=== PATIENT | female | born 1965 | race Caucasian/White ===

== ENCOUNTER 2023-10-10 19:57 | Emergency (ER) | payer OTHER, SELFPAY ==
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
[2023-10-10 20:05] VITALS: BP 142/93; PULSE 86; RESP 16; TEMP 36.1; O2SAT 100
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
== END 2023-10-10 23:15 | disposition home or self-care (01) ==
PROVIDERS: Emergency Provider Physician Assistant
DX: S60.221A Contusion of right hand, initial encounter (principal); Z79.899 Other long term (current) drug therapy; Z79.1 Long term (current) use of non-steroidal anti-inflammatories (NSAID); W22.09XA Striking against other stationary object, initial encounter
CPT/HCPCS: 73110; 73130; 99283

== ENCOUNTER 2024-04-13 18:51 | Emergency (ER) | payer OTHER, SELFPAY ==
--- NOTE | ~2024-04-13 | XR_ITS ---
CHEST RADIOGRAPH CLINICAL HISTORY: pneumonia . COMPARISON: None available TECHNIQUE: Single portable view of the chest. FINDINGS The cardiomediastinal silhouette is unremarkable. The lungs are clear. Visualized osseous structures and soft tissues are unremarkable. IMPRESSION: No focal infiltrate or effusion. Reviewed, dictated and finalized at location A. CTOR OF INSTITUTIONAL GIVING
[2024-04-13 19:02] VITALS: BP 151/82; PULSE 123; RESP 23; TEMP 36.3; O2SAT 97
[2024-04-13 23:08] VITALS: BP 151/102; PULSE 105; RESP 22; O2SAT 99
[2024-04-13 23:19] VITALS: PULSE 104
[2024-04-14] VITALS (10 sets, daily range): BP systolic 108–139; BP diastolic 72–98; PULSE 97–108; RESP 15–21; TEMP 37.2; O2SAT 95–100
[2024-04-14 00:03] LABS: Influenza A QL RT-PCR Positive (Negative); Influenza B QL RT-PCR Negative (Negative); RSV RNA, RT-PCR Negative (Negative); SARS-CoV-2 RNA PCR Negative (Negative)
--- NOTE | 2024-04-14 00:22 | PC.NURSE ---
1st set of blood cultures drawn left ac with kurin device, label in bio bag with cultures to lab. 2nd set of blood cultures drawn left wrist with kurin device, label in bio bag with cultures to lab.
[2024-04-14 00:30] LABS: Basophils Percent Auto 0.7 % (0.2-1.2); Eosinophils Absolute Auto 0.2 K/mm3 (0-0.3); Eosinophils Percent Auto 2.8 % (0-4.4); Hematocrit 42.6 % (37.0-47.0); Hemoglobin 13.7 g/dL (12.0-15.0); Immature Granulocyte Absolute 0.01 K/mm3 (0.00-0.031); Immature Granulocyte Percent A 0.2 % (0-0.5); Lymphocytes Absolute Auto 2.86 K/mm3 (0.9-3.2); Lymphocytes Percent Auto 49.9 % (18.3-44.2); Mean Corpuscular HGB Conc 32.2 g/dl (32-36); Mean Corpuscular Hemoglobin 30.4 pg (26-34); Mean Corpuscular Volume 94.7 fl (80-100); Mean Platelet Volume 9.9 fl (7.4-10.4); Monocytes Absolute Auto 0.4 K/mm3 (0.1-0.6); Monocytes Percent Auto 6.3 % (2.6-8.5); Neutrophils Absolute Auto 2.3 K/mm3 (1.3-6.7); Neutrophils Percent Auto 40.1 % (45.5-73.1); Platelet Count Result 251 k/mm3 (150-375); Red Cell Distribution Width 12.4 % (11.5-14.5); White Blood Count 5.7 K/mm3 (4.5-10.0)
[2024-04-14 00:40] LABS: Alanine Aminotransferase 40 U/L (6-35); Albumin Level 4.2 g/dL (3.5-5.1); Alkaline Phosphatase 89 U/L (38-126); Anion Gap 10 mmol/L (4-12); Aspartate Amino Transferase 56 U/L (14-36); Bilirubin,Total 0.5 mg/dL (0.2-1.3); Blood Urea Nitrogen 18 mg/dL (7-17); Calcium 8.8 mg/dL (8.4-10.2); Carbon Dioxide 28 mmol/L (22-30); Chloride 102 mmol/L (98-107); Estimated CRCL calculation 72 ml/min; Estimated Glomerular Filt Rate > 60; Glucose 88 mg/dL (65-110); Lactic Acid Reflex 0.9 mmol/L (0.7-2.0); Magnesium 2.2 mg/dL (1.6-2.3); Potassium 3.6 mmol/L (3.4-5.0); Sodium 140 mmol/L (137-145)
[2024-04-14] MEDS: SODIUM CHLORIDE 0.9% IV 1,000 ML 999 ML IV CONT (00:58)
--- NOTE | 2024-04-14 01:15 | ED_ITS ---
HPI - General Adult General Chief complaint: Shortness of Breath/Dyspnea Stated complaint: I think I have RSV Time Seen by Provider: 04/13/24 23:24 History of Present Illness HPI narrative: Patient is a 58-year-old female who presents to the emergency department this evening complaining of a cough productive of yellow sputum, shortness of breath. Patient states that symptoms started last week on Wednesday approximately 1 week ago. She admits that she has been having on and off fevers and chills and was concerned for RSV. Denies any chest pain. Patient took Tylenol at 5:30 p.m.. No additional symptoms or concerns at this time. Related Data Home Medications ?Medication ?Instructions ?Recorded ?Confirmed ?Last Taken ?Type B Complex-Vitamin B12 10/10/23 Unknown History Boniva 10/10/23 Unknown History Calcium 600 10/10/23 Unknown History Claritin 10/10/23 Unknown History Flonase 10/10/23 Unknown History Frsf-Ubuu-Sezfh (PABA) 10/10/23 Unknown History One A Day 10/10/23 Unknown History Trelegy Ellipta 10/10/23 Unknown History albuterol 10/10/23 Unknown History amlodipine 10 mg tablet mg 10/10/23 Unknown History bisoprolol fumarate 5 mg tablet mg 10/10/23 Unknown History bupropion HCl 150 mg 24 hr tablet, mg PO 10/10/23 Unknown History extended release duloxetine 60 mg capsule,delayed mg 10/10/23 Unknown History release sprinkle ibuprofen 800 mg tablet mg 10/10/23 Unknown History levothyroxine 50 mcg tablet 50 mcg PO DAILY 10/10/23 10/10/23 Unknown History (Synthroid) linaclotide 145 mcg capsule mcg 10/10/23 Unknown History (Linzess) montelukast 10 mg tablet mg 10/10/23 Unknown History (Singulair) multivit with tablet PO 10/10/23 Unknown History aoa-dlof-OB-#190herbal 18 mg iron-800 mcg-150 mg tablet (Vitamin D3 Complete) potassium chloride 20 mEq meq PO 10/10/23 Unknown History tablet,extended release theophylline 400 mg mg PO 10/10/23 Unknown History tablet,extended release Allergies Allergy/AdvReac Type Severity Reaction Status Date / Time iodine AdvReac Hives Verified 10/10/23 20:08 latex AdvReac Hives Verified 10/10/23 20:08 Review of Systems 2 Review of Systems: All systems are reviewed and are negative unless stated otherwise in the HPI. [facility] Past Medical History Medical History History of osteoporosis Social History Social History Substance use: never Exam 2 Narrative: General: Alert, awake, afebrile, dry cough. HEENT: PERRL, no rhinorrhea, no post nasal drip, oropharynx clear. Neck: Trachea midline, no JVD, no lymphadenopathy. Cardiovascular: Tachycardic with regular rhythm, no murmurs, rubs or gallops, no peripheral edema. Respiratory: Clear to auscultation bilaterally, tachypnea, no wheezing, no rhonchi, no rubs, no respiratory distress. Abdomen: Soft, nontender, nondistended, no rebound, no guarding, no peritoneal signs. Musculoskeletal: No joint swelling or deformity, normal muscle tone. Skin: No rashes or petechia, no signs of infection. Psychiatric: Alert and oriented, normal behavior and judgment for situation. Neurological: Alert and oriented to person, place, and time. Follows all commands. No focal deficits, speech is clear and fluent. Course Vital Signs Vital signs: Vital Signs Temperature 97.4 F L 04/13/24 19:02 Pulse Rate 123 H 04/13/24 19:02 Respiratory Rate 23 H 04/13/24 19:02 Blood Pressure 151/82 H 04/13/24 19:02 Pulse Oximetry 97 04/13/24 19:02 Oxygen Delivery Room Air 04/13/24 19:02 Temperature 97.4 F L 04/13/24 19:02 Pulse Rate 104 H 04/13/24 23:19 Respiratory Rate 22 H 04/13/24 23:08 Blood Pressure 151/102 H 04/13/24 23:08 Pulse Oximetry 99 04/13/24 23:08 Oxygen Delivery Room Air 04/13/24 19:02 Medical Decision Making MDM Narrative Medical decision making narrative: The patient was evaluated by myself in the emergency department. History is obtained from patient who is an independent historian and physical exam was performed. External medical records were reviewed at this time. IV was established and pertinent tests were ordered. Patient was administered 1 L IV fluid bolus with normal saline. Laboratory results obtained revealing mild elevation of the liver enzymes with an AST of 58 and ALT of 40, otherwise no acute process. Viral swabs positive for influenza A. Imaging studies obtained included CXR which was independently interpreted by me revealing no acute cardiopulmonary process, which is pending final radiology interpretation. Differential diagnosis considerations include acute viral syndrome, infectious process such as pneumonia, dehydration, electrolyte derangements. Comorbidities impacting this visit include none. I have evaluated and discussed social determinants of health with the patient that could potentially impact subsequent diagnosis and treatment plans. On repeat assessment of the patient, reevaluation revealed that the patient is doing well and is in no acute distress. Patient symptoms have improved since she arrived to our emergency department. Repeat vital signs were all reviewed and noted to be stable with a repeat heart rate of 100 and respiratory rate of 18. Differential diagnosis and treatment plan were discussed with the patient at bedside. Patient agrees with discussion and after shared medical decision making agrees with discharge. All questions were answered to the patient's satisfaction. Patient will follow up with her PCP in 3-5 days. Script for Tessalon Perles was sent to patient's pharmacy to use as needed for cough. Patient was provided with strict return precautions and instructed to return to the emergency department if any new or worsening symptoms develop. The patient was discharged in stable condition. Vital Signs Vital Signs: Vital Signs Temperature 97.4 F L 04/13/24 19:02 Pulse Rate 123 H 04/13/24 19:02 Respiratory Rate 23 H 04/13/24 19:02 Blood Pressure 151/82 H 04/13/24 19:02 Pulse Oximetry 97 04/13/24 19:02 Oxygen Delivery Room Air 04/13/24 19:02 Temperature 97.4 F L 04/13/24 19:02 Pulse Rate 104 H 04/13/24 23:19 Respiratory Rate 22 H 04/13/24 23:08 Blood Pressure 151/102 H 04/13/24 23:08 Pulse Oximetry 99 04/13/24 23:08 Oxygen Delivery Room Air 04/13/24 19:02 Lab Data 04/14/24 00:22 04/14/24 00:22 Labs: Lab Results 04/13/24 04/14/24 Range/Units 23:20 00:22 WBC 5.7 (4.5-10.0) K/mm3 RBC 4.50 (4.2-5.4) M/mm3 Hgb 13.7 (12.0-15.0) g/dL Hct 42.6 (37.0-47.0) % MCV 94.7 (80-100) fl MCH 30.4 (26-34) pg MCHC 32.2 (32-36) g/dl RDW 12.4 (11.5-14.5) % Plt Count 251 (150-375) k/mm3 MPV 9.9 (7.4-10.4) fl Immature Gran % (Auto) 0.2 (0-0.5) % Neut % (Auto) 40.1 L (45.5-73.1) % Lymph % (Auto) 49.9 H (18.3-44.2) % [place] % (Auto) 6.3 (2.6-8.5) % Eos % (Auto) 2.8 (0-4.4) % Baso % (Auto) 0.7 (0.2-1.2) % Lymph # (Auto) 2.86 (0.9-3.2) K/mm3 [place] # (Auto) 0.4 (0.1-0.6) K/mm3 Eos # (Auto) 0.2 (0-0.3) K/mm3 Baso # (Auto) 0.0 (0.0-0.1) K/mm3 Abs Immat Gran (auto) 0.01 (0.00-0.031) K/mm3 Absolute Neuts (auto) 2.3 (1.3-6.7) K/mm3 Absolute Nucleated RBC 0.000 (0.0-0.012) K/mm3 Nucleated RBC % 0.0 (0.0-0.2) % Sodium 140 (137-145) mmol/L Potassium 3.6 (3.4-5.0) mmol/L Chloride 102 (98-107) mmol/L Carbon Dioxide 28 (22-30) mmol/L Anion Gap 10 (4-12) mmol/L BUN 18 H (7-17) mg/dL Creatinine 0.72 (0.7-1.0) mg/dL Estim Creat Clear Calc 72 ml/min Estimated GFR > 60 (59 - ) Glucose 88 (65-110) mg/dL Lactic Acid 0.9 (0.7-2.0) mmol/L Calcium 8.8 (8.4-10.2) mg/dL Magnesium 2.2 (1.6-2.3) mg/dL Total Bilirubin 0.5 (0.2-1.3) mg/dL AST 56 H (14-36) U/L ALT 40 H (6-35) U/L Alkaline Phosphatase 89 (38-126) U/L Total Protein 8.0 (6.3-8.2) g/dL Albumin 4.2 (3.5-5.1) g/dL Influenza A (RT-PCR) Positive A (Negative) Influenza B (RT-PCR) Negative (Negative) RSV (RT-PCR) Negative (Negative) SARS-CoV-2 RNA (RT-PCR) Negative (Negative) Discharge Plan Discharge Clinical Impression: Influenza A Patient Disposition: Home, Self-Care Condition: Stable Instructions: Antibiotic Form, Influenza (ED) Additional Instructions: Please follow-up with your family doctor within the next 3-5 days. Return to the emergency department if any new or worsening symptoms develop. Maintain your oral hydration by drinking lots of fluids. Patient Language: Mohawk Prescriptions: New benzonatate 200 mg capsule 200 mg PO TID PRN (Reason: cough) Qty: 15 0RF No Action B Complex-Vitamin B12 theophylline 400 mg Tablet Extended Release PO ibuprofen [Motrin] 800 mg Tablet bisoprolol fumarate 5 mg Tablet amlodipine 10 mg Tablet levothyroxine [Synthroid] 50 mcg Tablet 50 mcg PO DAILY montelukast [Singulair] 10 mg Tablet bupropion HCl 150 mg Tablet Extended Release 24 Hr PO Vitamin D3 Complete 18 mg iron-800 mcg-150 mg Tablet PO Linzess 145 mcg Capsule potassium chloride 20 mEq Tablet Extended Release PO duloxetine 60 mg Capsule, Delayed Rel Sprinkle Boniva Calcium 600 Claritin Flonase Frrw-Qwpj-Kzalp (PABA) One A Day Trelegy Ellipta albuterol Follow-up/Referrals: Vikas Davies MD [Physician] - 3 Days UNKNOWN,DOCTOR [Primary Care Provider] - 3 Days Time of Disposition: 01:17
--- OUTSIDE RECORDS SUMMARY | 2024-04-14 06:15 | XMS_ITS | Continuity of Care Document ---
Author Name [facility] Organization [facility] Care Team Providers Care Alternative Energy Engineer Name Role Phone [facility] Unavailable Unavailable Problems Combined list of problems from Department of Defense and Veterans Affairs facilities. It does not include entries that were removed or entered in error. Problem Status Onset Date Problem Type Date of Resolution Comments Source Allergic rhinitis due to pollen Active 9 Condition DoD Displaced fracture of navicular [scaphoid] of right foot Active 9 Condition DoD Essential (primary) hypertension Active 8 Condition DoD Scoliosis, unspecified Active 8 Condition DoD Mild persistent asthma, uncomplicated Active Condition DoD Adjustment disorder, unspecified Active Condition DoD rhinitis vasomotor Active Condition DoD nephrolithiasis right Active Condition DoD restrictive lung disease Active Condition DoD procedure not carried out Active Condition DoD Vaccination Not Carried Out Due To Acute Illness Inactive Condition DoD visit for: issue repeat prescription Inactive Condition DoD Need For Vaccination Against Influenza Inactive Condition DoD Need For Vaccination Pneumococcal Inactive Condition DoD conjunctivitis Inactive Condition DoD allergic arthritis Active Condition DoD ovarian cyst Active Condition DoD asthma extrinsic with acute exacerbation Active Condition DoD perimenopause Active Condition DoD Cervix Sample Taken For Pap Smear Inactive Condition DoD Cervical Pap Smear Inactive Condition Do D visit for: screening exam Inactive Condition DoD psoriasis Active Condition DoD reaction to chronic stress Active Condition DoD menorrhagia Active Condition DoD insomnia Active Condition DoD asthma extrinsic Active Condition DoD costochondritis (Tietze's syndrome) Inactive Condition DoD acute chest wall trauma Inactive Condition DoD joint pain, localized in the knee Active Condition DoD neck strain right side Inactive Condition DoD shoulder strain right Inactive Condition DoD wrist sprain right Inactive Condition Do D asthmatic bronchitis Active Condition DoD breast fibrocystic disease Active Condition DoD Allergen Desensitization Inactive Condition DoD Occupational Therapy Inactive Condition DoD visit for: administrative purpose Inactive Condition DoD joint pain, localized in the elbow Inactive Condition DoD joint pain, localized in the wrist Inactive Condition DoD rhinitis Inactive Condition DoD sinusitis acute Inactive Condition DoD contusion with intact skin surface Active Condition DoD sinusitis Active Condition DoD chronic sinusitis Active Condition re view of today's sinus CT scan images show right maxalliary and ethoid sicaes, to a lesser extent left ethmoid and maxillary disease DoD allergic rhinitis Active Condition DoD bronchitis Inactive Condition DoD asthma with acute exacerbation Inactive Condition with resolving bronchitis DoD visit for: issue repeat prescription for medication Inactive Condition DoD asthma Active Condition DoD internal derangement of knee Inactive Condition DoD acute bronchitis Inactive Condition DoD asthma mild persistent Inactive Condition DoD Patient Education - Self-Examination Of Breasts Inactive Condition DoD visit for: screening exam malignant neoplasm breast Inactive Condition DoD visit for: screening exam for malignant neoplasm cervix Inactive Condition DoD routine gynecological exam with cervical pap smear Inactive Condition DoD other specified viral disease Inactive Condition DoD Outpatient Physician Consultation Inactive Condition DoD pneumonia Inactive Condition meds order ed in [facility] 1 DoD upper respiratory infection Inactive Condition DoD asthma moderate persistent Active Condition Patient is having adverse affects to the increase in advair and will switch her from advair to symbicort. Will continue the singulair and nasonex regularly and albuterol as needed. With aeroallergen skin test results conducted today we will order allergens for allergy testing today from [facility]. Will conduct lab work up for IG levels, pneumococcal levels and tetanus levels. Will follow up in 3-4 weeks for assessment of treatment efficacy, blood workup review and allergy shots. DoD Medications Combined list of outpatient medications from Department of Defense and Veterans Affairs facilities.Medications provided include 1) outpatient medications from the last 15 months, and 2) patient-reported medications. Medication Details Route Status Patient Instructions Prescription Expires Prescription Number Last Dispense Date Ordering Provider Order Date Order Qty Source albuterol 2.5mg/3mL (0.083%) inhalation soln (3mL) See Instruct ions, # 360 mL, 0 total refill(s ), Hard Stop Complet ed 03/10/2024 360.0 Ambul[facility] ory Pharmac y albuterol 90 mcg inhaler [8.5g] = 1 puff(s), Inhale, every 4 hr, # 8.5 g, 5 total refill(s ), Hard Stop Inhala tion (breat he in) Complet ed 12/23/2023 8.5 Ambulat ory Pharmac y albuterol 90 mcg/inh inhalation aerosol INHALE 2 PUFFS EVERY FOUR HOURS NEEDED FOR COUGH OR WHEEZING , # 25.5 g, 0 total refill(s ), Acute Complet ed 07/16/2023 25.5 Ambulat ory Pharmac y Albuterol Sulfate (PROVENTIL Eq.) Solution 2.5MG/3ML Inhalation Take or use exactly as directed .Obtain advice for OTCs.For inhalati on. 03/10/2024 [id number] 3 2022 360 [facility] [place] amLODIPine (U/D) 10 MG ORAL TAB Be careful if taking OTCs.Omid e or use exactly as directed . Active 04/21/2024 [id number] 4 2023 90 [facility] [place] amLODIPine (U/D) 10 MG ORAL TAB Be careful if taking OTCs.Omid e or use exactly as directed . 01/09/2024 [id number] 3 2022 90 [facility] [place] amLODIPine 10 mg tablet 10 mg, Oral, Daily, # 90 EA, 0 total refill(s ), Hard Stop Oral (given by mouth) Complet ed 08/31/2023 90.0 Ambulat ory Pharmac y amLODIPine 10 mg tablet 10 mg, Oral, Daily, # 90 EA, 0 total refill(s ), Hard Stop Oral (given by mouth) Ordered 04/21/2024 90.0 Ambul at ory Pharmac y azithromyci n 250 mg tablet (6EA) See Instruct ions, # 6 EA, 0 total refill(s ), Hard Stop Ordered 01/04/2025 6.0 Ambul at ory Pharmac y azithromyci n 250 mg tablet (6EA) See Instruct ions, 0, # 6 EA, 0 total refill(s ), Hard Stop Discont inued 01/06/2024 6.0 Ambulat ory Pharmac y azithromyci n 250 mg tablet (6EA) See Instruct ions, 0, 0, # 6 EA, 0 total refill(s ), Hard Stop Complet ed 09/02/2023 6.0 Ambulat ory Pharmac y Benzonatate (Tessalon Perle) Capsule Conventiona l 100 mg Oral May cause drowsine ss.Swall ow whole. 02/08/2024 [id number] 3 2022 60 [facility] [place] benzonatate 100 mg capsule 200 mg, Oral, TID, # 60 EA, 0 total refill(s ), Hard Stop Oral (given by mouth) Complet ed 02/08/2024 60.0 Ambulat ory Pharmac y bisoprolol 5 mg tablet 2.5 mg, Oral, Daily, # 45 EA, 3 total refill(s ), Hard Stop Oral (given by mouth) Ordered 01/04/2025 45.0 Ambul at ory Pharmac y bisoprolol 5 mg tablet 5 mg, Oral, Daily, # 90 EA, 0 total refill(s ), Hard Stop Oral (given by mouth) Discont inued 01/06/2024 90.0 Ambulat ory Pharmac y Bisoprolol Fumarate (Zebeta Eq.) Tablet 5mg Oral May cause drowsine ss.Be careful if taking OTCs.Omid e or use exactly as directed . Active 04/21/2024 [id number] 4 2023 90 [facility] [place] Bisoprolol Fumarate (Zebeta Eq.) Tablet 5mg Oral May cause drowsine ss.Be careful if taking OTCs.Omid e or use exactly as directed . 01/21/2024 [id number] 3 2022 90 [facility] [place] BONIVA (BRAND) 150 MG ORAL TAB Take on empty stomach. Do not take with milk, antacids , or iron.Obt ain advice for OTCs.Luis guo whole.Ch zaida with your doctor before becoming . 03/10/2024 [id number] 3 2022 3 [facility] [place] bromphenira mine/DM/PSE 2-10-30 mg/5 mL syrup [118mL] See Instruct ions, Oral, every 6 hr, # 400 mL, 3 total refill(s ), Hard Stop Oral (given by mouth) Discont inued 01/14/2023 400.0 Ambulat ory Pharmac y budesonide 0.5 mg/2 mL inhlation susp (2mL) See Instruct ions, # 120 mL, 0 total refill(s ), Hard Stop Complet ed 03/10/2024 120.0 Ambulat ory Pharmac y Budesonide, 0.25mg/ml, Ampul-neb., Inhalation Shake well.For inhalati on.Rinse mouth after use. 03/10/2024 [id number] 3 2022 120 [facility] [place] budesonide- formoterol 160-4.5 mcg inhaler (10.2g) See Instruct ions, # 10.2 g, 2 total refill(s ), Hard Stop Ordered 01/30/2025 10.2 Ambul at ory Pharmac y buPROPion XL 150 mg/24 hour tablet See Instruct ions, # 90 EA, 1 total refill(s ), Hard Stop Ordered 12/30/2024 90.0 Ambul at ory Pharmac y buPROPion XL 150 mg/24 hour tablet See Instruct ions, Oral, # 90 EA, 0 total refill(s ), Hard Stop Oral (given by mouth) Complet ed 08/24/2023 90.0 Ambulat ory Pharmac y cefuroxime 250 mg tablet See Instruct ions, Oral, # 20 EA, 0 total refill(s ), Hard Stop Oral (given by mouth) Complet ed 09/02/2023 20.0 Ambulat ory Pharmac y chlorphenir amine 4 mg tablet See Instruct ions, # 15 EA, 5 total refill(s ), Acute Complet ed 07/30/2023 15.0 Ambulat ory Pharmac y clobetasol 0.05% ointment [60g] See Instruct ions, # 60 g, 2 total refill(s ), Hard Stop Ordered 01/30/2025 60.0 Ambul at ory Pharmac y DULoxetine 60 MG ORAL CPDR Obtain advice for OTCs.May impair driving. Swallow whole.Ch zaida with your doctor before becoming . Active 04/26/2024 [id number] 4 2023 180 [facility] [place] DULoxetine 60 MG ORAL CPDR Obtain advice for OTCs.May impair driving. Swallow whole.Ch zaida with your doctor before becoming . 01/09/2024 [id number] 3 2022 180 [facility] [place] DULoxetine [place] 60 mg capsule See Instruct ions, # 90 EA, 1 total refill(s ), Hard Stop Ordered 12/30/2024 90.0 Ambul at ory Pharmac y DULoxetine DR 60 mg capsule 60 mg, Oral, BID, # 180 EA, 0 total refill(s ), Hard Stop Oral (given by mouth) Complet ed 09/29/2023 180.0 Ambulat ory Pharmac y EPINEPHrine (eqv-epi-pe n) 0.3mg autoinjecto r kit [2EA] See Instruct ions, # 2 EA, 3 total refill(s ), Hard Stop Complet ed 11/15/2023 2.0 Ambulat ory Pharmac y Ergocalcife rol (Vitamin D Eq.) Capsule Conventiona l 1.25 mg Oral Active 04/21/2024 [id number] 4 2023 13 [facility] [place] Ergocalcife rol (Vitamin D Eq.) Capsule Conventiona l 1.25 mg Oral 01/09/2024 [id number] 3 2022 13 [facility] [place] ergocalcife rol 1.25 mg (50,000 units) capsule See Instruct ions, Oral, # 13 EA, 1 total refill(s ), Hard Stop Oral (given by mouth) Ordered 04/21/2024 13.0 Ambul at ory Pharmac y ergocalcife rol 1.25 mg (50,000 units) capsule See dose instruct ions in comments , # 13 EA, 1 total refill(s ), Acute Complet ed 04/15/2023 13.0 Ambulat ory Pharmac y FLONASE-OTC (BRAND) 50 MCG OSBALDO SPSN [9.9] Take or use exactly as directed .For the nose. 03/15/2024 [id number] 3 2022 16 [facility] [place] fluticasone 50 mcg/inh nasal spray USE 1 SPRAY IN EACH NOSTRIL EVERY DAY, # 32 g, 0 total refill(s ), Acute Complet ed 07/16/2023 32.0 Ambulat ory Pharmac y fluticasone 50 mcg/inh nasal spray [16g] See Instruct ions, 0, # 16 g, 2 total refill(s ), Hard Stop Ordered 04/26/2024 16.0 Ambul at ory Pharmac y fluticasone 50 mcg/inh nasal spray [16g] 50 mcg, Nostril- Both, Daily, # 16 g, 0 total refill(s ), Hard Stop Nostri l-Both (into the nose) Complet ed 03/10/2024 16.0 Ambulat ory Pharmac y hydroCHLORO thiazide 12.5 mg oral tablet TAKE ONE TABLET BY MOUTH EVERY DAY, # 90 EA, 1 total refill(s ), Acute Complet ed 04/15/2023 90.0 Ambulat ory Pharmac y ibandronate 150 mg oral tablet TAKE ONE TABLET BY MOUTH ONCE MONTHLY, # 3 EA, 3 total refill(s ), Acute Complet ed 01/20/2023 3.0 Ambulat ory Pharmac y ibandronate 150 mg tablet See Instruct ions, # 3 EA, 3 total refill(s ), Hard Stop Ordered 12/30/2024 3.0 Ambul at ory Pharmac y ibandronate 150 mg tablet 150 mg, Oral, every month, # 3 EA, 1 total refill(s ), Hard Stop Oral (given by mouth) Complet ed 10/21/2023 3.0 Ambulat ory Pharmac y Ibuprofen (Motrin) Tablet 800 mg Oral Take with food/mil k.Take or use exactly as directed .Obtain advice for OTCs.May cause drowsine ss/dizzi ness.Do not take if . 03/10/2024 [id number] 3 2022 90 [facility] [place] ibuprofen 600 mg tablet See Instruct ions, # 30 EA, 0 total refill(s ), Hard Stop Complet ed 03/02/2024 30.0 Ambulat ory Pharmac y ibuprofen 800 mg tablet See Instruct ions, # 30 EA, 0 total refill(s ), Hard Stop Complet ed 01/02/2024 30.0 Ambulat ory Pharmac y levothyroxi ne (Synthroid) 50 mcg tablet 50 mcg, Oral, Daily, # 90 EA, 0 total refill(s ), Hard Stop Oral (given by mouth) Complet ed 08/24/2023 90.0 Ambulat ory Pharmac y levothyroxi ne (Synthroid) 50 mcg tablet 50 mcg, Oral, Daily, # 90 EA, 0 total refill(s ), Hard Stop Oral (given by mouth) Ordered 04/21/2024 90.0 Ambul at ory Pharmac y Levothyroxi ne Sodium (Levothroid ) Tablet 50 mcg Oral Take on empty stomach. Take with plenty of water.Be careful if taking OTCs.Omid e or use exactly as directed . Active 04/21/2024 [id number] 4 2023 90 [facility] [place] linaCLOtide 145 MCG ORAL CAP Take on empty stomach. Obtain advice for OTCs.Luis almazan.Geovanna zaida with your doctor before becoming .Do not chew or crush.Ta ke this medicine 30 minutes before a meal. Active 04/21/2024 [id number] 4 2023 90 [facility] [place] Linzess 145 mcg capsule 145 mcg, Oral, Daily, # 90 EA, 0 total refill(s ), Hard Stop Oral (given by mouth) Discont inued 12/31/2023 90.0 Ambulat ory Pharmac y Linzess 145 mcg capsule 145 mcg, Oral, Daily, # 90 EA, 0 total refill(s ), Hard Stop Oral (given by mouth) Complet ed 08/24/2023 90.0 Ambulat ory Pharmac y Linzess 290 mcg capsule See Instruct ions, # 30 EA, 5 total refill(s ), Hard Stop Ordered 12/30/2024 30.0 Ambul at ory Pharmac y Loratadine (Alavert ODT) Tablet 10 mg Oral May cause drowsine ss.Obtai n advice for OTCs. Active 04/21/2024 [id number] 4 2023 90 [facility] [place] loratadine 10 mg oral tablet TAKE ONE TABLET BY MOUTH EVERY DAY, # 90 EA, 3 total refill(s ), Acute Complet ed 07/16/2023 90.0 Ambulat ory Pharmac y loratadine 10 mg tablet 10 mg, Oral, Daily, # 90 EA, 3 total refill(s ), Hard Stop Oral (given by mouth) Ordered 04/21/2024 90.0 Ambul at ory Pharmac y MONTELUKAST (U/D) 10 MG ORAL TAB Take or use exactly as directed . Active 04/21/2024 [id number] 4 2023 90 [facility] [place] montelukast 10 mg tablet 10 mg, Oral, Daily, # 90 EA, 1 total refill(s ), Hard Stop Oral (given by mouth) Ordered 04/21/2024 90.0 Ambul at ory Pharmac y montelukast 10 mg tablet See Instruct ions, # 90 EA, 1 total refill(s ), Acute Complet ed 07/16/2023 90.0 Ambulat ory Pharmac y Paxlovid 300 mg-100 mg Dose Pack [30] See Instruct ions, Oral, # 30 EA, 0 total refill(s ), Hard Stop Oral (given by mouth) Discont inued 02/19/2023 30.0 Ambulat ory Pharmac y POTASSIUM CHL (MICRO)(U/D ) 20MEQ PO TBTQ Take with plenty of water.Ta ke with food/mil k.Take or use exactly as directed . 01/09/2024 [id number] 3 2022 180 [facility] [place] potassium chloride ER 20 mEq tablet (dispersibl e) 20 mEq, Oral, BID, # 180 EA, 0 total refill(s ), Hard Stop Oral (given by mouth) Complet ed 08/24/2023 180.0 Ambulat ory Pharmac y Prednisone (5-Day Burst) Tablet 20 mg Oral Take with food/mil k.Take or use exactly as directed .Obtain advice for OTCs. Active 04/27/2024 [id number] 4 2023 14 [facility] [place] Prednisone (5-Day Burst) Tablet 20 mg Oral Take with food/mil k.Take or use exactly as directed .Obtain advice for OTCs. Active 04/21/2024 [id number] 4 2023 7 [facility] [place] Prednisone (5-Day Burst) Tablet 20 mg Oral Take with food/mil k.Take or use exactly as directed .Obtain advice for OTCs. 02/16/2024 [id number] 3 2022 7 [facility] [place] predniSONE 20 mg tablet See Instruct ions, Oral, # 14 EA, 0 total refill(s ), Hard Stop Oral (given by mouth) Ordered 01/04/2025 14.0 Ambul at ory Pharmac y predniSONE 20 mg tablet 40 mg, Oral, Daily, # 14 EA, 0 total refill(s ), Hard Stop Oral (given by mouth) Discont inued 01/06/2024 14.0 Ambulat ory Pharmac y predniSONE 20 mg tablet See Instruct ions, Oral, # 14 EA, 0 total refill(s ), Hard Stop Oral (given by mouth) Complet ed 09/02/2023 14.0 Ambulat ory Pharmac y pseudoephed rine 30 mg tablet See Instruct ions, # 30 EA, 5 total refill(s ), Acute Complet ed 07/30/2023 30.0 Ambulat ory Pharmac y pseudoephed rine 60 mg oral tablet TAKE ONE TABLET BY MOUTH TWICE A DAY, # 60 EA, 2 total refill(s ), Acute Complet ed 04/15/2023 60.0 Ambulat ory Pharmac y theophyllin e ER [[place]] 400 mg/24 hour tablet See Instruct ions, # 45 EA, 5 total refill(s ), Hard Stop Complet ed 12/23/2023 45.0 Ambulat ory Pharmac y theophyllin e ER [[place]mark] 400 mg/24 hour tablet See Instruct ions, # 45 EA, 5 total refill(s ), Hard Stop Ordered 07/25/2024 45.0 Ambul at ory Pharmac y tiotropium 1.25 mcg/inh inhalation aerosol INHALE 2 PUFFS BY MOUTH ONCE A DAY, # 4 g, 5 total refill(s ), Acute Complet ed 09/01/2022 4.0 Ambulat ory Pharmac y Trelegy Ellipta 200 mcg-62.5 mcg-25 mcg inh [60EA] See Instruct ions, Inhale, Daily, # 180 EA, 3 total refill(s ), Hard Stop Inhala tion (breat he in) Complet ed 09/03/2023 180.0 Ambulat ory Pharmac y Allergies, Adverse Reactions, Alerts Combined list of allergies from Department of Defense and Veterans Affairs facilities. It does not include entries that were removed or entered in error. Substance Category Reaction Severity Reaction type Status Date Reported Comments Source IODINE (IODINE) Drug allergy (disorder) Anaphylaxis active 2 [facility] iodine topical Propensity to adverse reactions to drug Anaphylaxis Active 2 [facility] Latex Drug allergy Active [facility] OTHER {Cla } Drug allergy (disorder) Rash active 9 [facility] [place] Immunizations Combined list of available immunizations from the Department of Defense and Veterans Affairs facilities. Immunization Series Date Given Administered By Site Reaction Lot Number CVX Code Drug Field Attendant Status Comments Source COVID-19 vaccine, vector-nr, rS-Ad26, PF, 0.5 mL 2021 ASHLEY, [employer] (JSN) Not Given COVID-19 vaccine, vector-nr , rS-Ad26, PF, 0.5 mL DoD COVID-19 vaccine, vector-nr, rS-Ad26, PF, 0.5 mL 2020 ASHLEY, () Not Given COVID-19 vaccine, vector-nr , rS-Ad26, PF, 0.5 mL DoD influenza, injectable, quadrivalent- pf 2017 zzL t Arm [id number] Se[employer] complet ed influenza , injectabl e, quadrival ent-pf 02/04/18 Given Ambulat ory Pharmac y Influenza, injectable, quadrivalent, preservative free 1 2017 [id number] Se[employer]irus (SEQ) comple t ed Influenza , injectabl e, quadrival ent, preservat ayesha free DoD influenza, injectable, quadrivalent, preservative free 2016 TRICIA DUNN () Not Given influenza , injectabl e, quadrival ent, preservat ayesha free DoD Influenza, trivlanent, adjuvanted, pf 2015 [facility] Arm [id number] Se[employer] complet ed Influenza , trivlanen t, adjuvante d, pf 01/28/16 Given Ambulat ory Pharmac y Seasonal trivalent influenza vaccine, adjuvanted, preservative free 1 2015 IRAIS HANSEN [id number] Se[employer] (SEQ) complet ed Seasonal trivalent influenza vaccine, adjuvante d, preservat ayesha free DoD influenza, seasonal, injectable-pf 2014 zzLef t Arm [id number] CSL Behring complet ed influenza , seasonal, injectabl e-pf 03/19/15 Given Ambulat ory Pharmac y Influenza, seasonal, injectable, preservative free 1 2014 FELIPE FORBES [id number] [facility] [employer] (CS) complet ed Influenza , seasonal, injectabl e, preservat ayesha free DoD influenza, seasonal, injectable 2012 zzLef t Arm [id number] 141 sanofi pasteur complet ed influenza , seasonal, injectabl e 02/08/13 Given Ambulat ory Pharmac y Influenza, seasonal, injectable 1 2012 LIANA CALLEJAS [id number] 141 Sanofi Pasteur ([facility]) complet ed Influenza , seasonal, injectabl e DoD influenza, seasonal, injectable-pf 2011 zzLef t Arm [id number] 140 sanofi pasteur complet ed influenza , seasonal, injectabl e-pf 03/10/12 Given Ambulat ory Pharmac y pneumococcal polysaccharid e, 23 valent 2011 zef t Arm [id number] [employer] Inc complet ed pneumococ fran polysacch aride, 23 valent 03/10/12 Given Ambulat ory Pharmac y pneumococcal polysaccharid e vaccine, 23 valent 1 2011 SHAKIR VICTORIA [id number] Merck (MSD) comp let ed pneumococ fran polysacch aride vaccine, 23 valent DoD Influenza, seasonal, injectable, preservative free 1 2011 SHAKIR VICTORIA [id number] 140 Sanofi Pasteur ([facility]) complet ed Influenza , seasonal, injectabl e, preservat ayesha free DoD influenza virus vaccine,split [facility] [id number] A 15 Unknown complet ed influenza virus vaccine,s plit 01/08/09 Given Ambulat ory Pharmac y influenza virus vaccine, split virus (incl. purified surface antigen)-reti red CODE 1 2008 ELDER PRATT T [id number] A 15 Other (OTH) complet ed influenza virus vaccine, split virus (incl. purified surface antigen)- retired CODE DoD influenza virus vaccine,split [facility] [id number] A 15 Unknown complet ed influenza virus vaccine,s plit 03/08/08 Given Ambulat ory Pharmac y influenza virus vaccine, split virus (incl. purified surface antigen)-reti red CODE 1 2007 Unknown, Provider [id number] A 15 Other (OTH) complet ed influenza virus vaccine, split virus (incl. purified surface antigen)- retired CODE DoD tetanus, diphtheria, acellular pertu is 2007 zzRig ht Arm [id number] sanofi pasteur complet ed tetanus, diphtheri a, acellular pertussis 07/27/07 Given Ambulat ory Pharmac y pneumococcal polysaccharid e, 23 valent 2007 zzLef t Arm [id number] 33 Merck & Company Inc complet ed pneumococ fran polysacch aride, 23 valent 07/27/07 Given Ambulat ory Pharmac y pneumococcal polysaccharid e vaccine, 23 valent 1 2007 BRITTA LIANA L [id number] 33 Merck (MSD) complet ed pneumococ fran polysacch aride vaccine, 23 valent DoD tetanus toxoid, reduced diphtheria toxoid, and acellular pertu is vaccine, adsorbed 1 2007 LIANA CALLEJAS [id number] Sanofi Pasteur ([facility]) complet ed tetanus toxoid, reduced diphtheri a toxoid, and acellular pertussis vaccine, adsorbed DoD Vital Signs Combined list of inpatient and outpatient Vital Signs from Department of Defense and Veterans Affairs, ranging from 12 months to all on record, depending upon the facility. Vital Sign Value Date Comments Source No data available for this section Ambulatory Pharmacy Encounters Combined list of: 1) Encounters from Department of Veterans Affairs facilities going back up to thelast 18 months. 2) Encounters from the Department of Defense facilities going back up to 280 months. Location Location Details Encounter Type Encounter Number Reason For Visit Attending Provider ADM Date DC Date Status Disposition Source [facility]) OUTPATIENT [id number] COLD/ CONGEST ION POST, JOY Grant 01/19 Sick at Home/Quarter s [facility] TELE CONSULT [id number] CXR + VANESSA [place] 01/20 [facility] OUTPATIENT [id number] COUGH AND DIZZINE SS BRIJESH AQUINO V 01/26 Released w/o Limitations [facility] [place] [place] OUTPATIENT [id number] per MS BRIJESH KERR V 01/28 Released w/o Limitations [facility] [place] [place] OUTPATIENT [id number] annualk pap CONNER HAMILTON 04/10 Released w/o Limitations [facility] [place] [facility] [place] OUTPATIENT [id number] phy for JOEL Dyson 04/19 Released w/o Limitations [facility] [place] [place] OUTPATIENT [id number] ASTHMA MICHELLE COMFORT A 07/16 Released w/o Limitations [facility] [place] [facility] [place] TELE CONSULT [id number] refill albuter ol,adva TAY Jonas 05/23 [facility] [place] [place] OUTPATIENT [id number] asthma SANDIECOMFORT L 05/30 Released w/o Limitations [facility] [place]) [facility] [place] OUTPATIENT [id number] f/u lung infecti on COMFORT HOOPER L 06/13 Released w/o Limitations [facility] [place] [facility] [place] [id number] ASTHMA KATY VASQUEZ W 06/23 Released w/o Limitations [facility] [place] [id number] follow up visit KATY VASQUEZ W 07/26 Released w/o Limitations [facility] [place] [facility] [place] [id number] SINUS INFECTI ON RM POST, JOSEFINA D 08/09 Released w/o Limitations [facility] [place] [facility] [place] [id number] allergy shot ISSA CAMPOVERDE M 08/17 Released w/o Limitations [facility] [place] [facility] [place] [id number] fllow up PEDRO, KATY W 08/23 Released w/o Limitations [facility] [place] [facility] [place] [id number] allergy shot HANSEN, IRAIS D 09/01 Released w/o Limitations [facility] [place] [facility] [place] [id number] allergy shot HANSEN, IRAIS D 09/07 Released w/o Limitations [facility] [place] [facility] [place] [id number] allergy shot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 [id number] Notes Entered by: IRAIS HANSEN 01 Sep 2013 0850 ------- ------- ------- ------- -- Allergy Inj. #68 AMISHA PRICE 09/01 Released w/o Limitations [facility] [place] [facility] [place] [id number] Notes Entered by: BRIANNA BENÍTEZ 04 Sep 2013 1456 ------- ------- ------- ------- -- Allergy Injecft ion # 07 AMISHAPRICE 09/04 Released w/o Limitations [facility] [place] [facility] [place] [id number] Notes Entered by: BRIANNA BENÍTEZ 12 Sep 2013 1501 ------- ------- ------- ------- -- Allergy Injecti on # 16 ANA LAURA PAZ 09/12 Released w/o Limitations [facility] [place] [facility] [place] [id number] Notes Entered by: BRIANNA BENÍTEZ 15 Sep 2013 0827 ------- ------- ------- ------- -- Allergy Injecti on # 44 ANA LAURA PAZ 09/15 Released w/o Limitations [facility] [place] [facility] [place] [id number] Notes Entered by: BRIANNA BENÍTEZ 18 Sep 2013 0840 ------- ------- ------- ------- -- Allergy Injecti on # 82 LIONPRICE 09/18 Released w/o Limitations [facility] [place] [facility] [place] [id number] Notes Entered by: BRIANNA BENÍTEZ 20 Sep 2013 1017 ------- ------- ------- ------- -- Allergy Injecti on # 31 ANA LAURA PAZ 09/20 Released w/o Limitations [facility] [place] [facility] [place] [id number] Notes Entered by: ELDER JACK 25 Sep 2013 1334 ------- ------- ------- ------- -- Allergy 83 IRAIS HANSEN 09/25 Released w/o Limitations [facility] [place] [facility] [place] [id number] Notes Entered by: JOSEFINA DECKER 27 Sep 2013 0912 ------- ------- ------- ------- -- allergy inj #18 PRICE LION 09/27 Released w/o Limitations [facility] [place] [facility] [place] [id number] Notes Entered by: BRIANNA BENÍTEZ 29 Sep 2013 0921 ------- ------- ------- ------- -- Allergy Injecti on # 61 IRAIS HANSEN 09/29 Released w/o Limitations [facility] [place] [facility] [place] [id number] Notes Entered by: BRIANNA BENÍTEZ 04 Oct 2013 0900 ------- ------- ------- ------- -- Allergy Injecti on # 18 PRICE LION 10/04 Released w/o Limitations [facility] [place] [facility] [place] [id number] Notes Entered by: BRIANNA BENÍTEZ 06 Oct 2013 1026 ------- ------- ------- ------- -- Allergy Injecti on # 61 PRICE LION 10/06 Released w/o Limitations [facility] [place] [facility] [place] [id number] Notes Entered by: BRIANNA BENÍTEZ 09 Oct 2013 0907 ------- ------- ------- ------- -- Allergy Injecti on # 77 HANSENIRAIS HURLEY Lilliana 10/09 Released w/o Limitations [facility] [place] [facility] [place] [id number] Notes Entered by: JOSEFINA DECKER 17 Oct 2013 1544 ------- ------- ------- ------- -- allergy Injecti on #05 ANA LAURA PAZ 10/17 Released w/o Limitations [facility] [place] [facility] [place] [id number] Notes Entered by: JOSEFINA DECKER 14 Nov 2013 1630 ------- ------- ------- ------- -- ALLERGY INJECTI ON # 62 ELDER JACK 11/14 Released w/o Limitations [facility] [place] [facility] [place] [id number] asthma/ several attacks within last 2 days COMFORT HOOPER 11/28 Released w/o Limitations [facility] [place] [facility] [place] [address] [place] [address]) OUTPATIENT [id number] f/u worse COMFORT HOOPER 12/07 Released w/o Limitations [facility] [place] [address]) [facility] [place] [id number] Notes Entered by: ARTIE DREW 19 Dec 2013 1618 ------- ------- ------- ------- -- Allergy Injecti on #G34 PRICE LION 12/19 Released w/o Limitations [facility] [place] [facility] [place] [id number] Notes Entered by: ELDER JACK 11 Jan 2014 1649 ------- ------- ------- ------- -- Allergy 38 FELIPE FORBES 01/11 Released w/o Limitations [facility] [place] [facility] [place] [id number] Notes Entered by: JOSEFINA DECKER 13 Feb 2014 1636 ------- ------- ------- ------- -- # 71 Allergy Injecti on ELDER JACK 02/13 Released w/o Limitations [facility] [place] [facility] [place] [id number] Notes Entered by: BRIANNA BENÍTEZ 20 Mar 2014 1459 ------- ------- ------- ------- -- allergy inj. #88 IRAIS HANSEN 03/20 Released w/o Limitations [facility] [place] [facility] [place]) [place] [id number] F/U WARREN PHIPPS 04/02 Released w/o Limitations [facility] [place] [facility] [place] [id number] Notes Entered by: PATIENCE BROWN 12 Apr 2014 1641 ------- ------- ------- ------- -- Allergy Injecti on # 82 ANA LAURA PZA 04/12 Released w/o Limitations [facility] [place] [facility] [place] [id number] Notes Entered by: BRIANNA BENÍTEZ 01 May 2014 1636 ------- ------- ------- ------- -- Allergy injecti on # 49 BRANDI ANA LAURA R 05/01 Released w/o Limitations [facility] [place] [facility] [place] [id number] Notes Entered by: PATIENCE BROWN 15 May 2014 1650 ------- ------- ------- ------- -- Allergy injecti on # 98 BRANDI ANA LAURA R 05/15 Released w/o Limitations [facility] [place] [facility] [place] [id number] F/U KATY VASQUEZ W 05/21 Released w/o Limitations [facility] [place] [facility] [place] [id number] asthma DIEGODT, FRANCESCA J 06/15 Released w/o Limitations [facility] [place] [facility] [place] [id number] Notes Entered by: GENO AVALOS 15 Jun 2014 1201 ------- ------- ------- ------- -- asthma flare KATY VASQUEZ 06/15 Released w/o Limitations [facility] [place] [facility] [place] [place] [id number] F/U from appt. KATY VASQUEZ W 06/27 Released w/o Limitations [facility] [place] [facility] [place] [id number] Notes Entered by: BRIANNA BENÍTEZ 23 Jul 2014 1318 ------- ------- ------- ------- -- Allergy Injecti on # 64 ANA LAURA PAZ 07/23 Released w/o Limitations [facility] [place] [facility] [place] [id number] Notes Entered by: GENO AVALOS W 26 Jul 2014 1254 ------- ------- ------- ------- -- lost voice, sinus headach e KATY VASQUEZ W 07/26 Sick at Home/Quarter s [facility] [place] [facility] [place] [id number] Notes Entered by: IRAIS HANSEN 22 Aug 2014 1116 ------- ------- ------- ------- -- Allergy Inj.#15 PRICE LION 08/22 Released w/o Limitations [facility] [place] [facility] [place] [id number] Notes Entered by: JOY PARKS 03 Oct 2014 1454 ------- ------- ------- ------- -- Allergy # 41 IRAIS HANSEN 10/03 Released w/o Limitations [facility] [place] [facility] [place] [id number] Notes Entered by: JOY PARKS 22 Oct 2014 1323 ------- ------- ------- ------- -- Allergy # 11 PRICE LION 10/22 Released w/o Limitations [facility] [place] [facility] [place]) [place] [id number] Allergy # 54 IRAIS HANSEN 11/30 Released w/o Limitations [facility] [place] [facility] [place] [id number] Notes Entered by: BRIANNA BENÍTEZ 27 Dec 2014 1408 ------- ------- ------- ------- -- Allergy injecti on # 13 IRAIS HANSEN 12/27 Released w/o Limitations [facility] [place] [place]) OUTPATIENT [id number] sinus infecti on, cough with asthma CARSON FITCH 01/25 Released w/o Limitations [facility] [place] [facility] [place] [id number] Notes Entered by: BRIANNA BENÍTEZ 13 Feb 2015 0850 ------- ------- ------- ------- -- Allergy Injecti on # 01 PRICE LION 02/13 Released w/o Limitations [facility] [place] [place] [facility] TELE CONSULT [id number] Notes Entered by: BRIANNA BENÍTEZ 13 Feb 2015 0851 ------- ------- ------- ------- -- Please refill the followi ng: Symbaco rt (needs to be renewed thru [facility] ELDER Arambula 02/13 [facility] [place] [place] [facility] TELE CONSULT [id number] Notes Entered by: ELDER JACK 13 Feb 2015 1007 ------- ------- ------- ------- -- Request ing Symbico rt refills thru [facility] ELDER JACK 02/13 [facility] [place] [facility] [place] [id number] Notes Entered by: BRIANNA BENÍTEZ 12 Mar 2015 1336 ------- ------- ------- ------- -- Allergy Injecti on # 79 IRAIS HANSEN 03/12 Released w/o Limitations [facility] [place] [facility] [place] [id number] Notes Entered by: ELDER JACK 19 Mar 2015 1506 ------- ------- ------- ------- -- Allergy 70 PRICE LION 03/19 Released w/o Limitations [facility] [place] [facility] [place] [id number] Notes Entered by: ELDER JACK 19 Mar 2015 1518 ------- ------- ------- ------- -- Flu Vaccine FELIPE FORBES 03/19 Released w/o Limitations [facility] [place] [place] [facility] [place] [id number] Notes Entered by: JENNIFER CALLEJAS 24 Apr 2015 0902 ------- ------- ------- ------- -- allergy injecti on FELIPE FORBES 04/24 Released w/o Limitations [facility] [place] [facility] [place]PAT[place] [id number] Notes Entered by: BRIANNA BENÍTEZ 30 Apr 2015 1320 ------- ------- ------- ------- -- Allergy Injecti on # 04 PRICE LION 04/30 Released w/o Limitations [facility] [place] [facility] [place] [facility]PATIENT [id number] Notes Entered by: BRIANNA BENÍTEZ 29 May 2015 0828 ------- ------- ------- ------- -- Allergy Injecti on # 74 PRICE LION 05/28 Released w/o Limitations [place] [place] [place] [place] [id number] Notes Entered by: BRIANNA BENÍTEZ 03 Jun 2015 0902 ------- ------- ------- ------- -- Allergy Injecti on # 15 HANSENIRAIS HURLEY D 06/02 Released w/o Limitations [facility] [place] [facility] [place] [id number] Notes Entered by: BRIANNA BENÍTEZ 03 Jun 2015 1044 ------- ------- ------- ------- -- Please refill the followi ng; WARREN Dunbar 06/02 [facility] [place] [place] [place] [id number] Notes Entered by: BRIANNA BENÍTEZ 06 Jun 2015 1311 ------- ------- ------- ------- -- Allergy Injecti on # 88 LEIDY FELIPE D 06/05 Released w/o Limitations [facility] [place] [facility] [place] [id number] asthma with flu like symptom YISEL Adair 06/10 Released w/o Limitations [facility] [place] [place] [place] [id number] Notes Entered by: BRIANNA BENÍTEZ 24 Jun 2015 1025 ------- ------- ------- ------- -- Allergy Injecti on # 44 LEIDY, FELIPE D 06/23 Released w/o Limitations [facility] [place] [facility] [place] [id number] Notes Entered by: BRIANNA BENÍTEZ 28 Jun 2015 1327 ------- ------- ------- ------- -- Allergy Injecti on # 31 IRAIS HANSEN D 06/27 Released w/o Limitations [facility] [place] [facility] [place] [id number] Notes Entered by: BRIANNA BENÍTEZ 24 Jul 2015 0845 ------- ------- ------- ------- -- Allergy Injecti on # 44 AMISHA PRICE 07/23 Released w/o Limitations [facility] [place] [facility] [place] [id number] Notes Entered by: BRIANNA BENÍTEZ 28 Aug 2015 1413 ------- ------- ------- ------- -- Allergy Injecti on # 81 IRAIS HANSEN D 08/27 Released w/o Limitations [facility] [place] [facility] [place] [id number] Notes Entered by: BRIANNA BENÍTEZ 27 Sep 2015 1130 ------- ------- ------- ------- -- Allergy Injecti on # 50 IRAIS HANSEN D 09/26 Released w/o Limitations [facility] [place] [facility] [place] [id number] Notes Entered by: BRIANNA BENÍTEZ 23 Oct 2015 1427 ------- ------- ------- ------- -- Allergy Injecti on # 58 AMISHA PRICE 10/22 Released w/o Limitations [facility] [place] [facility] [place] [id number] Notes Entered by: BRIANNA BENÍTEZ 27 Nov 2015 0832 ------- ------- ------- ------- -- Allergy Injecti on # 45 IRAIS HANSEN Lilliana 11/26 Released w/o Limitations [facility] [place] [facility] [place] [id number] Notes Entered by: BRIANNA BENÍTEZ 27 Nov 2015 0833 ------- ------- ------- ------- -- Please refill the followi ng: Nasonex /[place] rol inhalor BENI ARSHAD 11/26 [facility] [place] [facility] [place] [id number] F/U -reorde r allergy serum. KATY VASQUEZ 12/22 Released w/o Limitations [facility] [place] [facility] [place] [id number] Notes Entered by: FRED CORTES 28 Jan 2016 1503 ------- ------- ------- ------- -- ALLERGY SHOT 57 HANSEN, IRAIS Lilliana 01/27 Released w/o Limitations [facility] [place] [place] [id number] been sick/co ughing up stuff/c hest hurJANENE Walters 03/11 Released w/o Limitations [place] [place] [facility] [place] TELE CONSULT [id number] Notes Entered by: CASSANDRA MARISCAL 11 Mar 2016 1620 ------- ------- ------- ------- -- JOSEFINA JUAREZ 03/11 [place] [place] [place] [facility] [place] [id number] Notes Entered by: BRIANNA BENÍTEZ 19 Mar 2016 1400 ------- ------- ------- ------- -- Allergy Injecti on # 16 IRAIS HANSEN 03/19 Released w/o Limitations [facility] [place] [facility] [place] [id number] Notes Entered by: BRIANNA BENÍTEZ 24 Mar 2016 1411 ------- ------- ------- ------- -- Allergy Injecti on # 49 ANAIS VARELA 03/24 Released w/o Limitations [facility] [place] [facility] [place] [id number] Notes Entered by: BRIANNA BENÍTEZ 06 May 2016 1323 ------- ------- ------- ------- -- Allergy Injecti on # 43 GARY LIONA 05/06 Released w/o Limitations [facility] [place] [place] [id number] Notes Entered by: BRIANNA BENÍTEZ 03 Jun 2016 1414 ------- ------- ------- ------- -- Allergy Injecti on # 83 PRICE LION 06/03 Released w/o Limitations [place] [place] [facility] [place] [id number] Notes Entered by: BRIANNA BENÍTEZ 23 Jun 2016 1358 ------- ------- ------- ------- -- Allergy Injecti on # 63 PRICE LION 06/23 Released w/o Limitations [facility] [place]) [facility] [place] [id number] asthma problem s ANDERS EASTON 07/29 Released w/o Limitations [facility] [place] [facility] [place] [id number] Notes Entered by: BRIANNA BENÍTEZ 12 Aug 2016 1007 ------- ------- ------- ------- -- Allergy Injecti on # 93 ELLENANAIS MAYER Usama 08/12 Released w/o Limitations [place] [facility] [place] [facility]PAT[place] [id number] Notes Entered by: BRIANNA BENÍTEZ 14 Sep 2016 1021 ------- ------- ------- ------- -- Allergy Injecti on # 72 FELIPE FORBES 09/14 Released w/o Limitations [place] [facility] [place] [facility]PAT[place] [id number] Notes Entered by: ARNAV GRANADOS 23 Oct 2016 1411 ------- ------- ------- ------- -- allergy inj #10 IRAIS HANSEN 10/23 Released w/o Limitations [place] [id number] Notes Entered by: BRIANNA BENÍTEZ 26 Nov 2016 1351 ------- ------- ------- ------- -- Allergy Injecti on # 77 WARREN PHIPPS 11/26 Released w/o Limitations [facility] [place]) [place] [place] OUTPATIENT [id number] Sinus infecti on/Asth DAMON Terry 12/23 Released w/o Limitations [facility] [facility] [place] [place] [id number] Notes Entered by: BRIANNA BENÍTEZ 23 Dec 2016 1005 ------- ------- ------- ------- -- Allergy walk-in # 49 WARREN PHIPPS O 12/23 Released w/o Limitations [place] [place] [place] [id number] Notes Entered by: BRIANNA BENÍTEZ 26 Jan 2017 1427 ------- ------- ------- ------- -- Allergy walk - in # 79 WARREN PHIPPS O 01/26 Released w/o Limitations [place] [place] [facility] [place] [id number] Notes Entered by: BRIANNA BENÍTEZ 26 Jan 2017 1439 ------- ------- ------- ------- -- Please refill the followi ng: Nasanex /Pro- r inhalor GENET BEE 01/26 [place] [place] [place] [place] [id number] Notes Entered by: BRIANNA BENÍTEZ 24 Feb 2017 1351 ------- ------- ------- ------- -- Allergy walk-in # 80 WARREN PHIPPS O 02/24 Released w/o Limitations [place] [place]) [place] [id number] sinus infecti on PATRICIO GUDINO 03/04 Released w/o Limitations [facility] [place] [facility] [place] [id number] Notes Entered by: BRIANNA BENÍTEZ 10 Mar 2017 0838 ------- ------- ------- ------- -- Allergy walk-in # 57 IRAIS HANSEN 03/10 Released w/o Limitations [facility] [place] [facility] [place] [id number] Notes Entered by: BRIANNA BENÍTEZ 19 Apr 2017 1346 ------- ------- ------- ------- -- Allergy walk-in # 38 WARREN PHIPPS O 04/19 Released w/o Limitations [facility] [place]) [place] [id number] asthma complic atEMILIA Fitzgerald N 05/17 Immediate Referral [facility] [place] [id number] Notes Entered by: BRIANNA BENÍTEZ 31 May 2017 1450 ------- ------- ------- ------- -- Allergy walk-in # 44 WARREN PHIPPS O 05/31 Released w/o Limitations [facility] [place]) [place] [id number] F/U - from [address] [place] [address] /[facility] ER by WARREN Olivia 06/07 Released w/o Limitations [facility] [place] [id number] Notes Entered by: ARNAV GRANADOS 24 Jun 2017 1416 ------- ------- ------- ------- -- allergy walk in #64 WARREN PHIPPS O 06/24 Released w/o Limitations [facility] [place] [facility] [facility] [place] [id number] Notes Entered by: BRIANNA BENÍTEZ 20 Jul 2017 1511 ------- ------- ------- ------- -- Allergy walk-in # 34 WARREN PHIPPS O 07/20 Released w/o Limitations [facility] [place] [facility] [place] [id number] Notes Entered by: BRIANNA BENÍTEZ 11 Aug 2017 1518 ------- ------- ------- ------- -- Allergy walk-in # 87 WARREN PHIPPS 08/11 Released w/o Limitations [facility] [place] [facility] [place] [id number] Notes Entered by: BRIANNA BENÍTEZ 16 Sep 2017 1343 ------- ------- ------- ------- -- Allergy walk-in # 67 IRAIS HANSEN 09/16 Released w/o Limitations [facility] [place] [facility] [place] [id number] Notes Entered by: BRIANNA BENÍTEZ 14 Oct 2017 1344 ------- ------- ------- ------- -- Allergy walk-in # 65 WARREN PHIPPS 10/14 Released w/o Limitations [facility] [place] [facility] [place] [id number] Notes Entered by: BRIANNA BENÍTEZ 18 Nov 2017 1428 ------- ------- ------- ------- -- Allergy walk-in # 81 IRAIS HANSEN 11/18 Released w/o Limitations [facility] [place] [facility] [place] [id number] Notes Entered by: BRIANNA BENÍTEZ 15 Dec 2017 1114 ------- ------- ------- ------- -- Allergy walk-in # 16 WARREN PHIPPS 12/15 Released w/o Limitations [facility] [place] [facility] [place] OUTPAT[place] [id number] poss cyst in right arm AYDEN ARANDA 01/19 Released w/o Limitations [facility] [place] [place] [id number] Notes Entered by: BRIANNA BENÍTEZ 19 Jan 2018 1029 ------- ------- ------- ------- -- Allergy walk-in # 23 MOISEWARREN ELAM O 01/19 Released w/o Limitations [place] [facility] [place]) [place] [place] TELE CONSULT [id number] Notes Entered by: FREDRICK ARANDA 19 Jan 2018 1303 ------- ------- ------- ------- -- notify patient of lab results and to recheck TSH and free T4 in 1 week. CONNER GUNN 01/19 [place] [place] [id number] follow up EMILIA WIGGINS N 01/24 Released w/o Limitations [facility] [place] [place] [id number] Sebaceo us cyst DAHIANA GRIGSBY 01/27 Released w/o Limitations [facility] [place] [place]PAT[place] [id number] follow up for x-ray and labs EMILIA WIGGINS N 01/27 Released w/o Limitations [facility] [place] [facility] [place]) [place] [id number] WOUND PACKED DAHIANA GRIGSBY 02/01 Released w/o Limitations [facility] [place] [facility] [place] [id number] Notes Entered by: JER HUFFMAN 02 Feb 2018 1307 ------- ------- ------- ------- -- WALK IN FOR WOUND PACKING DAHIANA GRIGSBY 02/02 Released w/o Limitations [facility] [place] [facility] [place] [id number] Notes Entered by: BRIANNA BENÍTEZ 14 Feb 2018 1347 ------- ------- ------- ------- -- Allergy walk-in # 78 WARREN PHIPPS O 02/14 Released w/o Limitations [facility] [place] [facility] [place] [place]LE CONSULT [id number] Notes Entered by: FREDRICK ARANDA 15 Feb 2018 1116 ------- ------- ------- ------- -- Notify of normal Mammo REINALDO MCKEE 02/15 [facility] [place] [place] [facility] [place]) [place] [id number] WELL WOMAN WITH A PAP MILTON MONTESINOS 02/15 Released w/o Limitations [facility] [place] [facility] [place] [place]LE CONSULT [id number] Notes Entered by: FREDRICK ARANDA 16 Feb 2018 1324 ------- ------- ------- ------- -- Please advise MAMMO normal JOSEFINA MARSHALL 02/16 [facility] [place] [place] [facility] [place]LE [place] [id number] Notes Entered by: MILTON MONTESINOS 02 Mar 2018 0823 ------- ------- ------- ------- -- pap letter EDA REED 03/02 [facility] [place] [facility] [place] [id number] Notes Entered by: BRIANNA BENÍTEZ 02 Mar 2018 1452 ------- ------- ------- ------- -- Allergy walk-in # 57 WARREN PHIPPS 03/02 Released w/o Limitations [facility] [place]) [facility] [place] TELE CONSULT [id number] Notes Entered by: EMILIA WIGGINS 03 Mar 2018 1306 ------- ------- ------- ------- -- thyroid lab results FRANCIA CONDON 03/03 [facility] [place] [facility] [place] [id number] Notes Entered by: JENNIFER CALLEJAS 08 Mar 2018 1415 ------- ------- ------- ------- -- allergy walkin #45 IRAIS HANSEN 03/08 Released w/o Limitations [facility] [place] [facility] [place] [id number] Notes Entered by: BRIANNA BENÍTEZ 11 Mar 2018 1402 ------- ------- ------- ------- -- Allergy walk-in # 15 PRICE LION 03/11 Released w/o Limitations [facility] [place]) [facility] [place] [id number] results from lab work and xray for spine EMILIA WIGGINS 03/17 Released w/o Limitations [facility] [place] [facility] [place] [id number] Notes Entered by: BRIANNA BENÍTEZ 15 Apr 2018 1118 ------- ------- ------- ------- -- see comment s: GENET BEE 04/15 [facility] [place] [facility] [place] [id number] Notes Entered by: BRIANNA BENÍTEZ 15 Apr 2018 1126 ------- ------- ------- ------- -- Allergy walk-in # 89 IRAIS HANSEN 04/15 Released w/o Limitations [facility] [place] [facility] [place] OUTPATIENT [id number] transit ion appt AUSTENROSALIND EMILIA N 04/18 Released w/o Limitations [facility] [place] [facility] [place] OUTPATIENT [id number] [facility] N 04/22 Immediate Referral [facility] [place] [facility] [place] OUTPATIENT [id number] ER follow up EMILIA WIGGINS N 04/25 Released w/o Limitations [facility] [place] [facility] [place] [id number] Notes Entered by: BRIANNA BENÍTEZ 10 Jun 2018 1101 ------- ------- ------- ------- -- Allergy walk-in # 73 WM MARIE D 06/10 Released w/o Limitations [facility] [place] [facility] [place]) [place] [id number] F/U - reorder allergy serum WARREN PHIPPS O 06/15 Released w/o Limitations [facility] [place] [facility] [place] [id number] Notes Entered by: BRIANNA BENÍTEZ 22 Jul 2018 1025 ------- ------- ------- ------- -- Allergy walk-in # 03 BENI ROMERO 07/22 Released w/o Limitations [facility] [place] [facility] [place] [id number] Notes Entered by: WM GARDNER 01 Sep 2018 1351 ------- ------- ------- ------- -- allergy walk in #88 WARREN PHIPPS 09/01 Released w/o Limitations [facility] [place] [facility] [place] [id number] Notes Entered by: JERAD BAUMANN SE 28 Oct 2018 1349 ------- ------- ------- ------- -- ALLERGY SHOT # 45 IRAIS HANSEN 10/28 Released w/o Limitations [facility] [place] [facility] [place] [id number] Notes Entered by: JERAD BAUMANN SE 04 Nov 2018 0955 ------- ------- ------- ------- -- ALLERGY SHOT # 58 WARREN PHIPPS 11/04 Released w/o Limitations [facility] [place] [facility] [place] [id number] Notes Entered by: JERAD BAUMANN SE 09 Dec 2018 1103 ------- ------- ------- ------- -- ALLERGY SHOT # 64 WARREN PHIPPS 12/09 Released w/o Limitations [facility] [place] [facility] [place] [id number] Notes Entered by: JERAD BAUMANN SE 18 Jan 2019 1052 ------- ------- ------- ------- -- ALLERGY SHOT # 23 WARREN PHIPPS O 01/18 Released w/o Limitations [facility] [place] [facility] [place] [facility] [id number] PFT TEST WARREN PHIPPS O 01/19 Released w/o Limitations [facility] [place] [facility] [place] [id number] Notes Entered by: JERAD BAUMANN SE R 02 Mar 2019 1414 ------- ------- ------- ------- -- ALLERGY SHOT # 78 WARREN PHIPPS O 03/02 Released w/o Limitations [facility] [place] [facility] [place] [place] [facility]PAT[place] [id number] Notes Entered by: JERAD BAUMANN SE R 31 Mar 2019 1115 ------- ------- ------- ------- -- ALLERGY INJ # 11 WARREN PHIPPS O 03/31 Released w/o Limitations [facility] [place] [facility] [place] [id number] Notes Entered by: LEXI HOUSTON 12 May 2019 1441 ------- ------- ------- ------- -- allergy shot S446 NAHUM PHIPPSNE O 05/12 Released w/o Limitations [facility] [place] [facility] [place] [id number] Notes Entered by: Lilliana GARCIA 15 Jun 2019 1313 ------- ------- ------- ------- -- ALLERGY SHOT/ S410 IRAIS HANSEN 06/14 Released w/o Limitations [place]([facility]) [facility] [place] OUTPATIENT [id number] Notes Entered by: Lilliana GARCIA 25 Aug 2019 1009 ------- ------- ------- ------- -- ALLERGY SHOT/ S429 LION, PRICE 08/24 Released w/o Limitations [place]([facility] [place] OUTPATIENT [id number] Notes Entered by: Lilliana GARCIA 30 Aug 2019 0917 ------- ------- ------- ------- -- ALLERGY SHOT/ S419 WARREN PHIPPS 08/29 Released w/o Limitations [place]([facility] [place]) OUTPAT[place] [id number] refills documen tation WARREN PHIPPS 09/11 Released w/o Limitations [place]([facility]) Procedures Combined list of: 1) Procedures from Department of Veterans Affairs facilities going back up to thelast 18 months, not all VA non-surgical procedures are included; 2) All procedures from the Department of Defense facilities. Procedure Procedure Type Code Date Perfomer Comments Sour e WAIVER SERVICES; NOT OTHERWISE SPECIFIED (NOS) 2019 [facility] PROFESSIONAL SERVICES FOR ALLERGEN IMMUNOTHERAPY NOT INCLUDING PROVISION OF ALLERGENIC EXTRACTS; 2 OR MORE INJECTIONS 2019 [facility] SERVICES FOR ALLERGEN IMMUNOTHERAPY NOT INCLUDING PROVISION OF ALLERGENIC EXTRACTS; 2 OR MORE INJECTIONS 2019 [facility] PROFESSIONAL SERVICES FOR ALLERGEN IMMUNOTHERAPY NOT INCLUDING PROVISION OF ALLERGENIC EXTRACTS; 2 OR MORE INJECTIONS 2019 [facility] PROFESSIONAL SERVICES FOR ALLERGEN IMMUNOTHERAPY NOT INCLUDING PROVISION OF ALLERGENIC EXTRACTS; 2 OR MORE INJECTIONS 2019 [facility] PROFESSIONAL SERVICES FOR ALLERGEN IMMUNOTHERAPY NOT INCLUDING PROVISION OF ALLERGENIC EXTRACTS; 2 OR MORE INJECTIONS 2018 [facility] BRONCHODILATION RESPONSIVENESS, [place] [id number], PRE- AND POST-BRONCHODILATOR ADMINISTRATION 2018 [facility] PROFESSIONAL SERVICES FOR ALLERGEN IMMUNOTHERAPY NOT INCLUDING PROVISION OF ALLERGENIC EXTRACTS; 2 OR MORE INJECTIONS 2018 [facility] PROFESSIONAL SERVICES FOR ALLERGEN IMMUNOTHERAPY NOT INCLUDING PROVISION OF ALLERGENIC EXTRACTS; 2 OR MORE INJECTIONS 2018 [facility] PROFESSIONAL SERVICES FOR ALLERGEN IMMUNOTHERAPY NOT INCLUDING PROVISION OF ALLERGENIC EXTRACTS; 2 OR MORE INJECTIONS 2018 [facility] PROFESSIONAL SERVICES FOR ALLERGEN IMMUNOTHERAPY NOT INCLUDING PROVISION OF ALLERGENIC EXTRACTS; 2 OR MORE INJECTIONS 2018 [facility] PROFESSIONAL SERVICES FOR ALLERGEN IMMUNOTHERAPY NOT INCLUDING PROVISION OF ALLERGENIC EXTRACTS; 2 OR MORE INJECTIONS 2018 [facility] VITAL CAPACITY, TOTAL (SEPARATE PROCEDURE) 2018 [facility] PROFESSIONAL SERVICES FOR THE SUPERVISION OF PREPARATION AND PROVISION OF ANTIGENS FOR ALLERGEN IMMUNOTHERAPY; SINGLE OR MULTIPLE ANTIGENS (SPECIFY NUMBER OF DOSES) 2018 [facility] PROFESSIONAL SERVICES FOR ALLERGEN IMMUNOTHERAPY NOT INCLUDING PROVISION OF ALLERGENIC EXTRACTS; 2 OR MORE INJECTIONS 2018 DoD NEGATIVE SCREEN FOR DEPRESSIVE SYMPTOMS CATEGORIZED BY USING A STANDARDIZED DEPRESSION SCREENING/ASSESSMENT TOOL (MDD) 2018 [facility] PROFESSIONAL SERVICES FOR ALLERGEN IMMUNOTHERAPY NOT INCLUDING PROVISION OF ALLERGENIC EXTRACTS; 2 OR MORE INJECTIONS 2018 DoD NEGATIVE SCREEN FOR DEPRESSIVE SYMPTOMS CATEGORIZED BY USING A STANDARDIZED DEPRESSION SCREENING/ASSESSMENT TOOL (MDD) 2018 [facility] PROFESSIONAL SERVICES FOR ALLERGEN IMMUNOTHERAPY NOT INCLUDING PROVISION OF ALLERGENIC EXTRACTS; 2 OR MORE INJECTIONS 2017 DoD PROFESSIONAL SERVICES FOR ALLERGEN IMMUNOTHERAPY NOT INCLUDING PROVISION OF ALLERGENIC EXTRACTS; 2 OR MORE INJECTIONS 2017 DoD TELE ASSESS & MGT SRV PROV QUAL NONPHYS HLTH CARE PRO TO EST PAT,PARENT,GUARD NOT ORIG REL ASSESS & MGT SRV PROV W/IN PREV 7 DAYS NOR LEAD ASSESS & MGT SRV/PX W/IN NXT 24 HR/SOON APT;5-10 MIN MED DIS 2017 Do[facility] PROFESSIONAL SERVICES FOR ALLERGEN IMMUNOTHERAPY NOT INCLUDING PROVISION OF ALLERGENIC EXTRACTS; 2 OR MORE INJECTIONS 2017 DoD SCREENING [facility] SMEAR; OBTAINING, PREPARING AND CONVEYANCE OF CERVICAL OR VAGINAL SMEAR TO LABORATORY 2017 DoD PROFESSIONAL SERVICES FOR ALLERGEN IMMUNOTHERAPY NOT INCLUDING PROVISION OF ALLERGENIC EXTRACTS; 2 OR MORE INJECTIONS 2017 DoD TREATMENT OF SUPERFICIAL WOUND DEHISCENCE; WITH PACKING 2017 [facility] TREATMENT OF SUPERFICIAL WOUND DEHISCENCE; WITH PACKING 2017 [facility] NEGATIVE SCREEN FOR DEPRESSIVE SYMPTOMS CATEGORIZED BY USING A STANDARDIZED DEPRESSION SCREENING/ASSESSMENT TOOL (MDD) 2017 DoD NEGATIVE SCREEN FOR DEPRESSIVE SYMPTOMS CATEGORIZED BY USING A STANDARDIZED DEPRESSION SCREENING/ASSESSMENT TOOL (MDD) 2017 DoD INCISION AND DRAINAGE OF ABSCESS (EG, CARBUNCLE, SUPPURATIVE HIDRADENITIS, CUTANEOUS OR SUBCUTANEOUS ABSCESS, CYST, FURUNCLE, OR PARONYCHIA); SIMPLE OR SINGLE 2017 [facility] PROFESSIONAL SERVICES FOR ALLERGEN IMMUNOTHERAPY NOT INCLUDING PROVISION OF ALLERGENIC EXTRACTS; 2 OR MORE INJECTIONS 2017 [facility] NO SIGNIFICANT DEPRESSIVE SYMPTOMS CATEGORIZED BY USING A STANDARDIZED DEPRESSION ASSESSMENT TOOL (MDD) 2017 DoD PROFESSIONAL SERVICES FOR ALLERGEN IMMUNOTHERAPY NOT INCLUDING PROVISION OF ALLERGENIC EXTRACTS; 2 OR MORE INJECTIONS 2017 DoD PROFESSIONAL SERVICES FOR ALLERGEN IMMUNOTHERAPY NOT INCLUDING PROVISION OF ALLERGENIC EXTRACTS; 2 OR MORE INJECTIONS 2017 DoD PROFESSIONAL SERVICES FOR ALLERGEN IMMUNOTHERAPY NOT INCLUDING PROVISION OF ALLERGENIC EXTRACTS; 2 OR MORE INJECTIONS 2017 DoD PROFESSIONAL SERVICES FOR ALLERGEN IMMUNOTHERAPY NOT INCLUDING PROVISION OF ALLERGENIC EXTRACTS; 2 OR MORE INJECTIONS 2017 DoD PROFESSIONAL SERVICES FOR ALLERGEN IMMUNOTHERAPY NOT INCLUDING PROVISION OF ALLERGENIC EXTRACTS; 2 OR MORE INJECTIONS 2017 DoD PROFESSIONAL SERVICES FOR ALLERGEN IMMUNOTHERAPY NOT INCLUDING PROVISION OF ALLERGENIC EXTRACTS; 2 OR MORE INJECTIONS 2017 DoD PROFESSIONAL SERVICES FOR ALLERGEN IMMUNOTHERAPY NOT INCLUDING PROVISION OF ALLERGENIC EXTRACTS; 2 OR MORE INJECTIONS 2017 DoD PROFESSIONAL SERVICES FOR THE SUPERVISION OF PREPARATION AND PROVISION OF ANTIGENS FOR ALLERGEN IMMUNOTHERAPY; SINGLE OR MULTIPLE ANTIGENS (SPECIFY NUMBER OF DOSES) 2017 [facility] VITAL CAPACITY, TOTAL (SEPARATE PROCEDURE) 2017 DoD PROFESSIONAL SERVICES FOR ALLERGEN IMMUNOTHERAPY NOT INCLUDING PROVISION OF ALLERGENIC EXTRACTS; 2 OR MORE INJECTIONS 2017 DoD PROFESSIONAL SERVICES FOR ALLERGEN IMMUNOTHERAPY NOT INCLUDING PROVISION OF ALLERGENIC EXTRACTS; 2 OR MORE INJECTIONS 2016 [facility] NEGATIVE SCREEN FOR DEPRESSIVE SYMPTOMS CATEGORIZED BY USING A STANDARDIZED DEPRESSION SCREENING/ASSESSMENT TOOL (MDD) 2016 DoD PROFESSIONAL SERVICES FOR ALLERGEN IMMUNOTHERAPY NOT INCLUDING PROVISION OF ALLERGENIC EXTRACTS; 2 OR MORE INJECTIONS 2016 DoD PROFESSIONAL SERVICES FOR ALLERGEN IMMUNOTHERAPY NOT INCLUDING PROVISION OF ALLERGENIC EXTRACTS; 2 OR MORE INJECTIONS 2016 DoD PROFESSIONAL SERVICES FOR ALLERGEN IMMUNOTHERAPY NOT INCLUDING PROVISION OF ALLERGENIC EXTRACTS; 2 OR MORE INJECTIONS 2016 [facility] NEGATIVE SCREEN FOR DEPRESSIVE SYMPTOMS CATEGORIZED BY USING A STANDARDIZED DEPRESSION SCREENING/ASSESSMENT TOOL (MDD) 2016 [facility] PROFESSIONAL SERVICES FOR ALLERGEN IMMUNOTHERAPY NOT INCLUDING PROVISION OF ALLERGENIC EXTRACTS; 2 OR MORE INJECTIONS 2016 DoD PROFESSIONAL SERVICES FOR ALLERGEN IMMUNOTHERAPY NOT INCLUDING PROVISION OF ALLERGENIC EXTRACTS; 2 OR MORE INJECTIONS 2016 DoD PROFESSIONAL SERVICES FOR ALLERGEN IMMUNOTHERAPY NOT INCLUDING PROVISION OF ALLERGENIC EXTRACTS; 2 OR MORE INJECTIONS 2016 DoD PROFESSIONAL SERVICES FOR ALLERGEN IMMUNOTHERAPY NOT INCLUDING PROVISION OF ALLERGENIC EXTRACTS; 2 OR MORE INJECTIONS 2016 DoD PROFESSIONAL SERVICES FOR ALLERGEN IMMUNOTHERAPY NOT INCLUDING PROVISION OF ALLERGENIC EXTRACTS; 2 OR MORE INJECTIONS 2016 DoD PROFESSIONAL SERVICES FOR ALLERGEN IMMUNOTHERAPY NOT INCLUDING PROVISION OF ALLERGENIC EXTRACTS; 2 OR MORE INJECTIONS 2016 DoD PROFESSIONAL SERVICES FOR ALLERGEN IMMUNOTHERAPY NOT INCLUDING PROVISION OF ALLERGENIC EXTRACTS; 2 OR MORE INJECTIONS 2016 DoD PROFESSIONAL SERVICES FOR ALLERGEN IMMUNOTHERAPY NOT INCLUDING PROVISION OF ALLERGENIC EXTRACTS; 2 OR MORE INJECTIONS 2016 DoD PROFESSIONAL SERVICES FOR ALLERGEN IMMUNOTHERAPY NOT INCLUDING PROVISION OF ALLERGENIC EXTRACTS; 2 OR MORE INJECTIONS 2015 DoD NONINVASIVE EAR OR PULSE OXIMETRY FOR OXYGEN SATURATION; SINGLE DETERMINATION 2015 [facility] INFLUENZA VIRUS VACCINE, TRIVALENT (IIV3), SPLIT VIRUS, PRESERVATIVE FREE, 0.5 ML DOSAGE, FOR INTRAMUSCULAR USE 2015 DoD PROFESSIONAL SERVICES FOR ALLERGEN IMMUNOTHERAPY NOT INCLUDING PROVISION OF ALLERGENIC EXTRACTS; 2 OR MORE INJECTIONS 2015 DoD PROFESSIONAL SERVICES FOR ALLERGEN IMMUNOTHERAPY NOT INCLUDING PROVISION OF ALLERGENIC EXTRACTS; 2 OR MORE INJECTIONS 2015 DoD PROFESSIONAL SERVICES FOR ALLERGEN IMMUNOTHERAPY NOT INCLUDING PROVISION OF ALLERGENIC EXTRACTS; 2 OR MORE INJECTIONS 2015 DoD PROFESSIONAL SERVICES FOR ALLERGEN IMMUNOTHERAPY NOT INCLUDING PROVISION OF ALLERGENIC EXTRACTS; 2 OR MORE INJECTIONS 2015 DoD PROFESSIONAL SERVICES FOR ALLERGEN IMMUNOTHERAPY NOT INCLUDING PROVISION OF ALLERGENIC EXTRACTS; 2 OR MORE INJECTIONS 2015 DoD PROFESSIONAL SERVICES FOR ALLERGEN IMMUNOTHERAPY NOT INCLUDING PROVISION OF ALLERGENIC EXTRACTS; 2 OR MORE INJECTIONS 2015 DoD PROFESSIONAL SERVICES FOR ALLERGEN IMMUNOTHERAPY NOT INCLUDING PROVISION OF ALLERGENIC EXTRACTS; 2 OR MORE INJECTIONS 2015 DoD PROFESSIONAL SERVICES FOR ALLERGEN IMMUNOTHERAPY NOT INCLUDING PROVISION OF ALLERGENIC EXTRACTS; 2 OR MORE INJECTIONS 2015 DoD NONINVASIVE EAR OR PULSE OXIMETRY FOR OXYGEN SATURATION; SINGLE DETERMINATION 2015 DoD PROFESSIONAL SERVICES FOR ALLERGEN IMMUNOTHERAPY NOT INCLUDING PROVISION OF ALLERGENIC EXTRACTS; 2 OR MORE INJECTIONS 2015 DoD PROFESSIONAL SERVICES FOR ALLERGEN IMMUNOTHERAPY NOT INCLUDING PROVISION OF ALLERGENIC EXTRACTS; 2 OR MORE INJECTIONS 2015 [facility] VITAL CAPACITY, TOTAL (SEPARATE PROCEDURE) 2015 [facility] VITAL CAPACITY, TOTAL (SEPARATE PROCEDURE) 2015 DoD PROFESSIONAL SERVICES FOR ALLERGEN IMMUNOTHERAPY NOT INCLUDING PROVISION OF ALLERGENIC EXTRACTS; 2 OR MORE INJECTIONS 2015 DoD UNLISTED VACCINE/TOXOID 2014 DoD PROFESSIONAL SERVICES FOR ALLERGEN IMMUNOTHERAPY NOT INCLUDING PROVISION OF ALLERGENIC EXTRACTS; 2 OR MORE INJECTIONS 2014 DoD PROFESSIONAL SERVICES FOR ALLERGEN IMMUNOTHERAPY NOT INCLUDING PROVISION OF ALLERGENIC EXTRACTS; 2 OR MORE INJECTIONS 2014 Do[facility] PROFESSIONAL SERVICES FOR ALLERGEN IMMUNOTHERAPY NOT INCLUDING PROVISION OF ALLERGENIC EXTRACTS; 2 OR MORE INJECTIONS 2014 Do[facility] PROFESSIONAL SERVICES FOR ALLERGEN IMMUNOTHERAPY NOT INCLUDING PROVISION OF ALLERGENIC EXTRACTS; 2 OR MORE INJECTIONS 2014 Do[facility] PROFESSIONAL SERVICES FOR ALLERGEN IMMUNOTHERAPY NOT INCLUDING PROVISION OF ALLERGENIC EXTRACTS; 2 OR MORE INJECTIONS 2014 Do[facility] PROFESSIONAL SERVICES FOR ALLERGEN IMMUNOTHERAPY NOT INCLUDING PROVISION OF ALLERGENIC EXTRACTS; 2 OR MORE INJECTIONS 2014 Do[facility] PROFESSIONAL SERVICES FOR ALLERGEN IMMUNOTHERAPY NOT INCLUDING PROVISION OF ALLERGENIC EXTRACTS; 2 OR MORE INJECTIONS 2014 Do[facility] PROFESSIONAL SERVICES FOR ALLERGEN IMMUNOTHERAPY NOT INCLUDING PROVISION OF ALLERGENIC EXTRACTS; 2 OR MORE INJECTIONS 2014 Do[facility] PROFESSIONAL SERVICES FOR ALLERGEN IMMUNOTHERAPY NOT INCLUDING PROVISION OF ALLERGENIC EXTRACTS; 2 OR MORE INJECTIONS 2014 [facility] VITAL CAPACITY, TOTAL (SEPARATE PROCEDURE) 2014 [facility] BRONCHODILATION RESPONSIVENESS, [place] [id number], PRE- AND POST-BRONCHODILATOR ADMINISTRATION 2014 DoD PROFESSIONAL SERVICES FOR ALLERGEN IMMUNOTHERAPY NOT INCLUDING PROVISION OF ALLERGENIC EXTRACTS; 2 OR MORE INJECTIONS 2014 DoD PROFESSIONAL SERVICES FOR ALLERGEN IMMUNOTHERAPY NOT INCLUDING PROVISION OF ALLERGENIC EXTRACTS; 2 OR MORE INJECTIONS 2014 DoD PROFESSIONAL SERVICES FOR ALLERGEN IMMUNOTHERAPY NOT INCLUDING PROVISION OF ALLERGENIC EXTRACTS; 2 OR MORE INJECTIONS 2014 DoD PROFESSIONAL SERVICES FOR THE SUPERVISION OF PREPARATION AND PROVISION OF ANTIGENS FOR ALLERGEN IMMUNOTHERAPY; SINGLE OR MULTIPLE ANTIGENS (SPECIFY NUMBER OF DOSES) 2014 DoD INJECTION, METHYLPREDNISOLONE ACETATE, 80 MG 2013 Do[facility] PROFESSIONAL SERVICES FOR ALLERGEN IMMUNOTHERAPY NOT INCLUDING PROVISION OF ALLERGENIC EXTRACTS; 2 OR MORE INJECTIONS 2013 DoD PROFESSIONAL SERVICES FOR ALLERGEN IMMUNOTHERAPY NOT INCLUDING PROVISION OF ALLERGENIC EXTRACTS; 2 OR MORE INJECTIONS 2013 DoD PROFESSIONAL SERVICES FOR ALLERGEN IMMUNOTHERAPY NOT INCLUDING PROVISION OF ALLERGENIC EXTRACTS; 2 OR MORE INJECTIONS 2013 DoD INJECTION, TRIAMCINOLONE ACETONIDE, NOT OTHERWISE SPECIFIED, [address] [facility] PRESSURIZED/NONPRESS INHAL TREAT FOR AC AIRWAY OBSTRUCT,THERAP PURPOSE &/FOR DIAG PURP SUCH SPUTUM INDUCTION W AN AEROSOL GEN,NEBULIZER,METER DOSE INHALER/INTERMIT POSIT PRESS BREATHING (IPPB) DEV 2013 DoD PROFESSIONAL SERVICES FOR ALLERGEN IMMUNOTHERAPY NOT INCLUDING PROVISION OF ALLERGENIC EXTRACTS; 2 OR MORE INJECTIONS 2013 DoD PROFESSIONAL SERVICES FOR ALLERGEN IMMUNOTHERAPY NOT INCLUDING PROVISION OF ALLERGENIC EXTRACTS; 2 OR MORE INJECTIONS 2013 DoD PROFESSIONAL SERVICES FOR ALLERGEN IMMUNOTHERAPY NOT INCLUDING PROVISION OF ALLERGENIC EXTRACTS; 2 OR MORE INJECTIONS 2013 Do[facility] PROFESSIONAL SERVICES FOR ALLERGEN IMMUNOTHERAPY NOT INCLUDING PROVISION OF ALLERGENIC EXTRACTS; 2 OR MORE INJECTIONS 2013 Do[facility] PROFESSIONAL SERVICES FOR ALLERGEN IMMUNOTHERAPY NOT INCLUDING PROVISION OF ALLERGENIC EXTRACTS; 2 OR MORE INJECTIONS 2013 DoD PROFESSIONAL SERVICES FOR ALLERGEN IMMUNOTHERAPY NOT INCLUDING PROVISION OF ALLERGENIC EXTRACTS; 2 OR MORE INJECTIONS 2013 DoD PROFESSIONAL SERVICES FOR ALLERGEN IMMUNOTHERAPY NOT INCLUDING PROVISION OF ALLERGENIC EXTRACTS; 2 OR MORE INJECTIONS 2013 DoD PROFESSIONAL SERVICES FOR ALLERGEN IMMUNOTHERAPY NOT INCLUDING PROVISION OF ALLERGENIC EXTRACTS; 2 OR MORE INJECTIONS 2013 DoD PROFESSIONAL SERVICES FOR ALLERGEN IMMUNOTHERAPY NOT INCLUDING PROVISION OF ALLERGENIC EXTRACTS; 2 OR MORE INJECTIONS 2013 DoD PROFESSIONAL SERVICES FOR ALLERGEN IMMUNOTHERAPY NOT INCLUDING PROVISION OF ALLERGENIC EXTRACTS; 2 OR MORE INJECTIONS 2013 DoD PROFESSIONAL SERVICES FOR ALLERGEN IMMUNOTHERAPY NOT INCLUDING PROVISION OF ALLERGENIC EXTRACTS; 2 OR MORE INJECTIONS 2013 Do[facility] PROFESSIONAL SERVICES FOR ALLERGEN IMMUNOTHERAPY NOT INCLUDING PROVISION OF ALLERGENIC EXTRACTS; 2 OR MORE INJECTIONS 2013 DoD PROFESSIONAL SERVICES FOR ALLERGEN IMMUNOTHERAPY NOT INCLUDING PROVISION OF ALLERGENIC EXTRACTS; 2 OR MORE INJECTIONS 2013 DoD PROFESSIONAL SERVICES FOR ALLERGEN IMMUNOTHERAPY NOT INCLUDING PROVISION OF ALLERGENIC EXTRACTS; 2 OR MORE INJECTIONS 2013 DoD PROFESSIONAL SERVICES FOR ALLERGEN IMMUNOTHERAPY NOT INCLUDING PROVISION OF ALLERGENIC EXTRACTS; 2 OR MORE INJECTIONS 2013 DoD PROFESSIONAL SERVICES FOR ALLERGEN IMMUNOTHERAPY NOT INCLUDING PROVISION OF ALLERGENIC EXTRACTS; 2 OR MORE INJECTIONS 2013 DoD PROFESSIONAL SERVICES FOR ALLERGEN IMMUNOTHERAPY NOT INCLUDING PROVISION OF ALLERGENIC EXTRACTS; 2 OR MORE INJECTIONS 2013 DoD PROFESSIONAL SERVICES FOR ALLERGEN IMMUNOTHERAPY NOT INCLUDING PROVISION OF ALLERGENIC EXTRACTS; 2 OR MORE INJECTIONS 2013 DoD VITAL CAPACITY, TOTAL (SEPARATE PROCEDURE) 2013 [facility] VITAL CAPACITY, TOTAL (SEPARATE PROCEDURE) 2013 [facility] PERCUTANEOUS TESTS (SCRATCH, PUNCTURE, PRICK) WITH ALLERGENIC EXTRACTS, IMMEDIATE TYPE REACTION, INCLUDING TEST INTERPRETATION AND REPORT, SPECIFY NUMBER OF TESTS 2013 [facility] PROFESSIONAL SERVICES FOR ALLERGEN IMMUNOTHERAPY NOT INCLUDING PROVISION OF ALLERGENIC EXTRACTS; 2 OR MORE INJECTIONS 2013 DoD PROFESSIONAL SERVICES FOR ALLERGEN IMMUNOTHERAPY NOT INCLUDING PROVISION OF ALLERGENIC EXTRACTS; 2 OR MORE INJECTIONS 2013 [facility] DEMONSTRATION AND/OR EVALUATION OF PATIENT UTILIZATION OF AN AEROSOL GENERATOR, NEBULIZER, METERED DOSE INHALER OR IPPB DEVICE 2013 Do[facility] PROFESSIONAL SERVICES FOR ALLERGEN IMMUNOTHERAPY NOT INCLUDING PROVISION OF ALLERGENIC EXTRACTS; 2 OR MORE INJECTIONS 2013 DoD PROFESSIONAL SERVICES FOR ALLERGEN IMMUNOTHERAPY NOT INCLUDING PROVISION OF ALLERGENIC EXTRACTS; 2 OR MORE INJECTIONS 2013 DoD PROFESSIONAL SERVICES FOR ALLERGEN IMMUNOTHERAPY NOT INCLUDING PROVISION OF ALLERGENIC EXTRACTS; 2 OR MORE INJECTIONS 2013 Do[facility] PROFESSIONAL SERVICES FOR ALLERGEN IMMUNOTHERAPY NOT INCLUDING PROVISION OF ALLERGENIC EXTRACTS; 2 OR MORE INJECTIONS 2013 [facility] INFLUENZA VIRUS VACCINE, QUADRIVALENT (IIV4), SPLIT VIRUS, PRESERVATIVE FREE, 0.5 ML DOSAGE, FOR INTRAMUSCULAR USE 2012 [facility] PROFESSIONAL SERVICES FOR ALLERGEN IMMUNOTHERAPY NOT INCLUDING PROVISION OF ALLERGENIC EXTRACTS; 2 OR MORE INJECTIONS 2012 DoD PROFESSIONAL SERVICES FOR ALLERGEN IMMUNOTHERAPY NOT INCLUDING PROVISION OF ALLERGENIC EXTRACTS; 2 OR MORE INJECTIONS 2012 DoD PROFESSIONAL SERVICES FOR ALLERGEN IMMUNOTHERAPY NOT INCLUDING PROVISION OF ALLERGENIC EXTRACTS; 2 OR MORE INJECTIONS 2012 [facility] VITAL CAPACITY, TOTAL (SEPARATE PROCEDURE) 2012 DoD PROFESSIONAL SERVICES FOR ALLERGEN IMMUNOTHERAPY NOT INCLUDING PROVISION OF ALLERGENIC EXTRACTS; 2 OR MORE INJECTIONS 2012 DoD PROFESSIONAL SERVICES FOR ALLERGEN IMMUNOTHERAPY NOT INCLUDING PROVISION OF ALLERGENIC EXTRACTS; 2 OR MORE INJECTIONS 2012 DoD PROFESSIONAL SERVICES FOR ALLERGEN IMMUNOTHERAPY NOT INCLUDING PROVISION OF ALLERGENIC EXTRACTS; 2 OR MORE INJECTIONS 2012 Do[facility] PROFESSIONAL SERVICES FOR ALLERGEN IMMUNOTHERAPY NOT INCLUDING PROVISION OF ALLERGENIC EXTRACTS; 2 OR MORE INJECTIONS 2012 DoD PROFESSIONAL SER FOR ALLERGEN IMMUNOTHER IN THE OFFICE/INSTITUTION OF THE PRESCRIBING PHYSICIAN/OTH QUALIFIED HEALTH RAMP SERVICE AGENT,INCLUDI NG PROVISION OF ALLERGENIC EXTRACT;2/MORE INJECTIONS 2012 DoD PROFESSIONAL SER FOR ALLERGEN IMMUNOTHER IN THE OFFICE/INSTITUTION OF THE PRESCRIBING PHYSICIAN/OTH QUALIFIED HEALTH RAMP SERVICE AGENT,INCLUDI NG PROVISION OF ALLERGENIC EXTRACT;2/MORE INJECTIONS 2012 DoD PROFESSIONAL SER FOR ALLERGEN IMMUNOTHER IN THE OFFICE/INSTITUTION OF THE PRESCRIBING PHYSICIAN/OTH QUALIFIED HEALTH RAMP SERVICE AGENT,INCLUDI NG PROVISION OF ALLERGENIC EXTRACT;2/MORE INJECTIONS 2012 DoD PROFESSIONAL SER FOR ALLERGEN IMMUNOTHER IN THE OFFICE/INSTITUTION OF THE PRESCRIBING PHYSICIAN/OTH QUALIFIED HEALTH RAMP SERVICE AGENT,INCLUDI NG PROVISION OF ALLERGENIC EXTRACT;2/MORE INJECTIONS 2012 DoD VITAL CAPACITY, TOTAL (SEPARATE PROCEDURE) 2012 DoD PROFESSIONAL SER FOR ALLERGEN IMMUNOTHER IN THE OFFICE/INSTITUTION OF THE PRESCRIBING PHYSICIAN/OTH QUALIFIED HEALTH RAMP SERVICE AGENT,INCLUDI NG PROVISION OF ALLERGENIC EXTRACT;2/MORE INJECTIONS 2011 DoD INFLUENZA VIRUS VACCINE, TRIVALENT (IIV3), SPLIT VIRUS, 0.5 ML DOSAGE, FOR INTRAMUSCULAR USE 2011 DoD VITAL CAPACITY, TOTAL (SEPARATE PROCEDURE) 2011 DoD SPIROMETRY, INCLUDING GRAPHIC RECORD, TOTAL AND TIMED VITAL CAPACITY, EXPIRATORY FLOW RATE MEASUREMENT(S), WITH OR WITHOUT MAXIMAL VOLUNTARY VENTILATION 2011 DoD VITAL CAPACITY, TOTAL (SEPARATE PROCEDURE) 2011 DoD VITAL CAPACITY, TOTAL (SEPARATE PROCEDURE) 2011 DoD UNLISTED PULMONARY SERVICE OR PROCEDURE 2011 DoD VITAL CAPACITY, TOTAL (SEPARATE PROCEDURE) 2011 DoD SPIROMETRY, INCLUDING GRAPHIC RECORD, TOTAL AND TIMED VITAL CAPACITY, EXPIRATORY FLOW RATE MEASUREMENT(S), WITH OR WITHOUT MAXIMAL VOLUNTARY VENTILATION 2011 DoD VITAL CAPACITY, TOTAL (SEPARATE PROCEDURE) 2011 DoD PROFESSIONAL SER FOR ALLERGEN IMMUNOTHER IN THE OFFICE/INSTITUTION OF THE PRESCRIBING PHYSICIAN/OTH QUALIFIED HEALTH RAMP SERVICE AGENT,INCLUDI NG PROVISION OF ALLERGENIC EXTRACT;2/MORE INJECTIONS 2011 DoD VITAL CAPACITY, TOTAL (SEPARATE PROCEDURE) 2011 DoD INJECTION, METHYLPREDNISOLONE SODIUM SUCCINATE, UP TO 125 MG 2011 DoD PROFESSIONAL SER FOR ALLERGEN IMMUNOTHER IN THE OFFICE/INSTITUTION OF THE PRESCRIBING PHYSICIAN/OTH QUALIFIED HEALTH RAMP SERVICE AGENT,INCLUDI NG PROVISION OF ALLERGENIC EXTRACT;2/MORE INJECTIONS 2011 DoD PROFESSIONAL SER FOR ALLERGEN IMMUNOTHER IN THE OFFICE/INSTITUTION OF THE PRESCRIBING PHYSICIAN/OTH QUALIFIED HEALTH RAMP SERVICE AGENT,INCLUDI NG PROVISION OF ALLERGENIC EXTRACT;2/MORE INJECTIONS 2011 DoD PROFESSIONAL SER FOR ALLERGEN IMMUNOTHER IN THE OFFICE/INSTITUTION OF THE PRESCRIBING PHYSICIAN/OTH QUALIFIED HEALTH RAMP SERVICE AGENT,INCLUDI NG PROVISION OF ALLERGENIC EXTRACT;2/MORE INJECTIONS 2011 DoD PROFESSIONAL SER FOR ALLERGEN IMMUNOTHER IN THE OFFICE/INSTITUTION OF THE PRESCRIBING PHYSICIAN/OTH QUALIFIED HEALTH RAMP SERVICE AGENT,INCLUDI NG PROVISION OF ALLERGENIC EXTRACT;2/MORE INJECTIONS 2011 DoD PROFESSIONAL SER FOR ALLERGEN IMMUNOTHER IN THE OFFICE/INSTITUTION OF THE PRESCRIBING PHYSICIAN/OTH QUALIFIED HEALTH RAMP SERVICE AGENT,INCLUDI NG PROVISION OF ALLERGENIC EXTRACT;2/MORE INJECTIONS 2011 DoD VITAL CAPACITY, TOTAL (SEPARATE PROCEDURE) 2011 DoD PROFESSIONAL SER FOR ALLERGEN IMMUNOTHER IN THE OFFICE/INSTITUTION OF THE PRESCRIBING PHYSICIAN/OTH QUALIFIED HEALTH RAMP SERVICE AGENT,INCLUDI NG PROVISION OF ALLERGENIC EXTRACT;2/MORE INJECTIONS 2011 DoD PROFESSIONAL SER FOR ALLERGEN IMMUNOTHER IN THE OFFICE/INSTITUTION OF THE PRESCRIBING PHYSICIAN/OTH QUALIFIED HEALTH RAMP SERVICE AGENT,INCLUDI NG PROVISION OF ALLERGENIC EXTRACT;2/MORE INJECTIONS 2010 DoD PROFESSIONAL SER FOR ALLERGEN IMMUNOTHER IN THE OFFICE/INSTITUTION OF THE PRESCRIBING PHYSICIAN/OTH QUALIFIED HEALTH RAMP SERVICE AGENT,INCLUDI NG PROVISION OF ALLERGENIC EXTRACT;2/MORE INJECTIONS 2010 DoD PROFESSIONAL SER FOR ALLERGEN IMMUNOTHER IN THE OFFICE/INSTITUTION OF THE PRESCRIBING PHYSICIAN/OTH QUALIFIED HEALTH RAMP SERVICE AGENT,INCLUDI NG PROVISION OF ALLERGENIC EXTRACT;2/MORE INJECTIONS 2010 DoD SCREENING [facility] SMEAR; OBTAINING, PREPARING AND CONVEYANCE OF CERVICAL OR VAGINAL SMEAR TO LABORATORY 2010 DoD VITAL CAPACITY, TOTAL (SEPARATE PROCEDURE) 2010 DoD VITAL CAPACITY, TOTAL (SEPARATE PROCEDURE) 2010 DoD PROFESSIONAL SER FOR ALLERGEN IMMUNOTHER IN THE OFFICE/INSTITUTION OF THE PRESCRIBING PHYSICIAN/OTH QUALIFIED HEALTH RAMP SERVICE AGENT,INCLUDI NG PROVISION OF ALLERGENIC EXTRACT;2/MORE INJECTIONS 2010 DoD PROFESSIONAL SER FOR ALLERGEN IMMUNOTHER IN THE OFFICE/INSTITUTION OF THE PRESCRIBING PHYSICIAN/OTH QUALIFIED HEALTH RAMP SERVICE AGENT,INCLUDI NG PROVISION OF ALLERGENIC EXTRACT;2/MORE INJECTIONS 2010 DoD PROFESSIONAL SER FOR ALLERGEN IMMUNOTHER IN THE OFFICE/INSTITUTION OF THE PRESCRIBING PHYSICIAN/OTH QUALIFIED HEALTH RAMP SERVICE AGENT,INCLUDI NG PROVISION OF ALLERGENIC EXTRACT;2/MORE INJECTIONS 2010 DoD PROFESSIONAL SER FOR ALLERGEN IMMUNOTHER IN THE OFFICE/INSTITUTION OF THE PRESCRIBING PHYSICIAN/OTH QUALIFIED HEALTH RAMP SERVICE AGENT,INCLUDI NG PROVISION OF ALLERGENIC EXTRACT;2/MORE INJECTIONS 2010 DoD PROFESSIONAL SER FOR ALLERGEN IMMUNOTHER IN THE OFFICE/INSTITUTION OF THE PRESCRIBING PHYSICIAN/OTH QUALIFIED HEALTH RAMP SERVICE AGENT,INCLUDI NG PROVISION OF ALLERGENIC EXTRACT;2/MORE INJECTIONS 2010 DoD PROFESSIONAL SER FOR ALLERGEN IMMUNOTHER IN THE OFFICE/INSTITUTION OF THE PRESCRIBING PHYSICIAN/OTH QUALIFIED HEALTH RAMP SERVICE AGENT,INCLUDI NG PROVISION OF ALLERGENIC EXTRACT;2/MORE INJECTIONS 2010 DoD PROFESSIONAL SER FOR ALLERGEN IMMUNOTHER IN THE OFFICE/INSTITUTION OF THE PRESCRIBING PHYSICIAN/OTH QUALIFIED HEALTH RAMP SERVICE AGENT,INCLUDI NG PROVISION OF ALLERGENIC EXTRACT;2/MORE INJECTIONS 2010 DoD SPIROMETRY, INCLUDING GRAPHIC RECORD, TOTAL AND TIMED VITAL CAPACITY, EXPIRATORY FLOW RATE MEASUREMENT(S), WITH OR WITHOUT MAXIMAL VOLUNTARY VENTILATION 2010 DoD PROFESSIONAL SER FOR ALLERGEN IMMUNOTHER IN THE OFFICE/INSTITUTION OF THE PRESCRIBING PHYSICIAN/OTH QUALIFIED HEALTH RAMP SERVICE AGENT,INCLUDI NG PROVISION OF ALLERGENIC EXTRACT;2/MORE INJECTIONS 2010 DoD PROFESSIONAL SER FOR ALLERGEN IMMUNOTHER IN THE OFFICE/INSTITUTION OF THE PRESCRIBING PHYSICIAN/OTH QUALIFIED HEALTH RAMP SERVICE AGENT,INCLUDI NG PROVISION OF ALLERGENIC EXTRACT;2/MORE INJECTIONS 2010 DoD VITAL CAPACITY, TOTAL (SEPARATE PROCEDURE) 2010 DoD PROFESSIONAL SER FOR ALLERGEN IMMUNOTHER IN THE OFFICE/INSTITUTION OF THE PRESCRIBING PHYSICIAN/OTH QUALIFIED HEALTH RAMP SERVICE AGENT,INCLUDI NG PROVISION OF ALLERGENIC EXTRACT;2/MORE INJECTIONS 2010 DoD VITAL CAPACITY, TOTAL (SEPARATE PROCEDURE) 2010 DoD PROFESSIONAL SER FOR ALLERGEN IMMUNOTHER IN THE OFFICE/INSTITUTION OF THE PRESCRIBING PHYSICIAN/OTH QUALIFIED HEALTH RAMP SERVICE AGENT,INCLUDI NG PROVISION OF ALLERGENIC EXTRACT;2/MORE INJECTIONS 2010 DoD VITAL CAPACITY, TOTAL (SEPARATE PROCEDURE) 2010 DoD RESPIRATORY FLOW VOLUME LOOP 2010 DoD PROFESSIONAL SER FOR ALLERGEN IMMUNOTHER IN THE OFFICE/INSTITUTION OF THE PRESCRIBING PHYSICIAN/OTH QUALIFIED HEALTH RAMP SERVICE AGENT,INCLUDI NG PROVISION OF ALLERGENIC EXTRACT;2/MORE INJECTIONS 2009 DoD PROFESSIONAL SER FOR ALLERGEN IMMUNOTHER IN THE OFFICE/INSTITUTION OF THE PRESCRIBING PHYSICIAN/OTH QUALIFIED HEALTH RAMP SERVICE AGENT,INCLUDI NG PROVISION OF ALLERGENIC EXTRACT;2/MORE INJECTIONS 2009 DoD VITAL CAPACITY, TOTAL (SEPARATE PROCEDURE) 2009 DoD VITAL CAPACITY, TOTAL (SEPARATE PROCEDURE) 2009 DoD VITAL CAPACITY, TOTAL (SEPARATE PROCEDURE) 2009 DoD VITAL CAPACITY, TOTAL (SEPARATE PROCEDURE) 2009 DoD VITAL CAPACITY, TOTAL (SEPARATE PROCEDURE) 2009 DoD VITAL CAPACITY, TOTAL (SEPARATE PROCEDURE) 2009 DoD PROFESSIONAL SER FOR ALLERGEN IMMUNOTHER IN THE OFFICE/INSTITUTION OF THE PRESCRIBING PHYSICIAN/OTH QUALIFIED HEALTH RAMP SERVICE AGENT,INCLUDI NG PROVISION OF ALLERGENIC EXTRACT;2/MORE INJECTIONS 2009 DoD PROFESSIONAL SER FOR ALLERGEN IMMUNOTHER IN THE OFFICE/INSTITUTION OF THE PRESCRIBING PHYSICIAN/OTH QUALIFIED HEALTH RAMP SERVICE AGENT,INCLUDI NG PROVISION OF ALLERGENIC EXTRACT;2/MORE INJECTIONS 2009 DoD PROFESSIONAL SER FOR ALLERGEN IMMUNOTHER IN THE OFFICE/INSTITUTION OF THE PRESCRIBING PHYSICIAN/OTH QUALIFIED HEALTH RAMP SERVICE AGENT,INCLUDI NG PROVISION OF ALLERGENIC EXTRACT;2/MORE INJECTIONS 2009 DoD VITAL CAPACITY, TOTAL (SEPARATE PROCEDURE) 2009 DoD PROFESSIONAL SER FOR ALLERGEN IMMUNOTHER IN THE OFFICE/INSTITUTION OF THE PRESCRIBING PHYSICIAN/OTH QUALIFIED HEALTH RAMP SERVICE AGENT,INCLUDI NG PROVISION OF ALLERGENIC EXTRACT;2/MORE INJECTIONS 2009 DoD VITAL CAPACITY, TOTAL (SEPARATE PROCEDURE) 2009 DoD VITAL CAPACITY, TOTAL (SEPARATE PROCEDURE) 2009 DoD PROFESSIONAL SER FOR ALLERGEN IMMUNOTHER IN THE OFFICE/INSTITUTION OF THE PRESCRIBING PHYSICIAN/OTH QUALIFIED HEALTH RAMP SERVICE AGENT,INCLUDI NG PROVISION OF ALLERGENIC EXTRACT;2/MORE INJECTIONS 2009 DoD PROFESSIONAL SER FOR ALLERGEN IMMUNOTHER IN THE OFFICE/INSTITUTION OF THE PRESCRIBING PHYSICIAN/OTH QUALIFIED HEALTH RAMP SERVICE AGENT,INCLUDI NG PROVISION OF ALLERGENIC EXTRACT;2/MORE INJECTIONS 2009 DoD VITAL CAPACITY, TOTAL (SEPARATE PROCEDURE) 2009 DoD VITAL CAPACITY, TOTAL (SEPARATE PROCEDURE) 2009 DoD PROFESSIONAL SER FOR ALLERGEN IMMUNOTHER IN THE OFFICE/INSTITUTION OF THE PRESCRIBING PHYSICIAN/OTH QUALIFIED HEALTH RAMP SERVICE AGENT,INCLUDI NG PROVISION OF ALLERGENIC EXTRACT;2/MORE INJECTIONS 2008 DoD NONINVASIVE EAR OR PULSE OXIMETRY FOR OXYGEN SATURATION; SINGLE DETERMINATION 2008 DoD VITAL CAPACITY, TOTAL (SEPARATE PROCEDURE) 2008 DoD PROFESSIONAL SER FOR ALLERGEN IMMUNOTHER IN THE OFFICE/INSTITUTION OF THE PRESCRIBING PHYSICIAN/OTH QUALIFIED HEALTH RAMP SERVICE AGENT,INCLUDI NG PROVISION OF ALLERGENIC EXTRACT;2/MORE INJECTIONS 2008 DoD VITAL CAPACITY, TOTAL (SEPARATE PROCEDURE) 2008 DoD PROFESSIONAL SER FOR ALLERGEN IMMUNOTHER IN THE OFFICE/INSTITUTION OF THE PRESCRIBING PHYSICIAN/OTH QUALIFIED HEALTH RAMP SERVICE AGENT,INCLUDI NG PROVISION OF ALLERGENIC EXTRACT;2/MORE INJECTIONS 2008 DoD PROFESSIONAL SER FOR ALLERGEN IMMUNOTHER IN THE OFFICE/INSTITUTION OF THE PRESCRIBING PHYSICIAN/OTH QUALIFIED HEALTH RAMP SERVICE AGENT,INCLUDI NG PROVISION OF ALLERGENIC EXTRACT;2/MORE INJECTIONS 2008 DoD OCCUPATIONAL THERAPY RE-EVALUATION 2008 DoD THERAPEUTIC PROCEDURE, 1 OR MORE AREAS, EACH 15 MINUTES; THERAPEUTIC EXERCISES TO DEVELOP STRENGTH AND ENDURANCE, RANGE OF MOTION AND FLEXIBILITY 2008 DoD THERAPEUTIC PROCEDURE, 1 OR MORE AREAS, EACH 15 MINUTES; THERAPEUTIC EXERCISES TO DEVELOP STRENGTH AND ENDURANCE, RANGE OF MOTION AND FLEXIBILITY 2008 DoD SELF-CARE/HOME MANAGMENT TRAIN (EG,ACT OF DAILY LIVING (ADL) &COMPENSAT TRAIN,MEAL PREPARATION,SAFETY PROCS,AND INSTRUCT IN USE OF ASST TECHNOLOGY DEV/ADPT EQUIP) DIR ONE-ON-ONE CONT,EA 15 MINUTES 2008 DoD VITAL CAPACITY, TOTAL (SEPARATE PROCEDURE) 2008 DoD VITAL CAPACITY, TOTAL (SEPARATE PROCEDURE) 2008 DoD PROFESSIONAL SER FOR ALLERGEN IMMUNOTHER IN THE OFFICE/INSTITUTION OF THE PRESCRIBING PHYSICIAN/OTH QUALIFIED HEALTH RAMP SERVICE AGENT,INCLUDI NG PROVISION OF ALLERGENIC EXTRACT;2/MORE INJECTIONS 2008 DoD PROFESSIONAL SER FOR ALLERGEN IMMUNOTHER IN THE OFFICE/INSTITUTION OF THE PRESCRIBING PHYSICIAN/OTH QUALIFIED HEALTH RAMP SERVICE AGENT,INCLUDI NG PROVISION OF ALLERGENIC EXTRACT;2/MORE INJECTIONS 2008 DoD PROFESSIONAL SER FOR ALLERGEN IMMUNOTHER IN THE OFFICE/INSTITUTION OF THE PRESCRIBING PHYSICIAN/OTH QUALIFIED HEALTH RAMP SERVICE AGENT,INCLUDI NG PROVISION OF ALLERGENIC EXTRACT;2/MORE INJECTIONS 2008 DoD PROFESSIONAL SER FOR ALLERGEN IMMUNOTHER IN THE OFFICE/INSTITUTION OF THE PRESCRIBING PHYSICIAN/OTH QUALIFIED HEALTH RAMP SERVICE AGENT,INCLUDI NG PROVISION OF ALLERGENIC EXTRACT;2/MORE INJECTIONS 2008 DoD VITAL CAPACITY, TOTAL (SEPARATE PROCEDURE) 2008 DoD PROFESSIONAL SER FOR ALLERGEN IMMUNOTHER IN THE OFFICE/INSTITUTION OF THE PRESCRIBING PHYSICIAN/OTH QUALIFIED HEALTH RAMP SERVICE AGENT,INCLUDI NG PROVISION OF ALLERGENIC EXTRACT;2/MORE INJECTIONS 2008 DoD SPIROMETRY, INCLUDING GRAPHIC RECORD, TOTAL AND TIMED VITAL CAPACITY, EXPIRATORY FLOW RATE MEASUREMENT(S), WITH OR WITHOUT MAXIMAL VOLUNTARY VENTILATION 2008 DoD INJECTION, METHYLPREDNISOLONE ACETATE, 40 MG 2008 DoD SPIROMETRY, INCLUDING GRAPHIC RECORD, TOTAL AND TIMED VITAL CAPACITY, EXPIRATORY FLOW RATE MEASUREMENT(S), WITH OR WITHOUT MAXIMAL VOLUNTARY VENTILATION 2008 DoD UNLISTED PULMONARY SERVICE OR PROCEDURE 2008 DoD VITAL CAPACITY, TOTAL (SEPARATE PROCEDURE) 2008 DoD PROFESSIONAL SER FOR ALLERGEN IMMUNOTHER IN THE OFFICE/INSTITUTION OF THE PRESCRIBING PHYSICIAN/OTH QUALIFIED HEALTH RAMP SERVICE AGENT,INCLUDI NG PROVISION OF ALLERGENIC EXTRACT;2/MORE INJECTIONS 2008 DoD PROFESSIONAL SER FOR ALLERGEN IMMUNOTHER IN THE OFFICE/INSTITUTION OF THE PRESCRIBING PHYSICIAN/OTH QUALIFIED HEALTH RAMP SERVICE AGENT,INCLUDI NG PROVISION OF ALLERGENIC EXTRACT;2/MORE INJECTIONS 2007 DoD PROFESSIONAL SER FOR ALLERGEN IMMUNOTHER IN THE OFFICE/INSTITUTION OF THE PRESCRIBING PHYSICIAN/OTH QUALIFIED HEALTH RAMP SERVICE AGENT,INCLUDI NG PROVISION OF ALLERGENIC EXTRACT;2/MORE INJECTIONS 2007 DoD PROFESSIONAL SER FOR ALLERGEN IMMUNOTHER IN THE OFFICE/INSTITUTION OF THE PRESCRIBING PHYSICIAN/OTH QUALIFIED HEALTH RAMP SERVICE AGENT,INCLUDI NG PROVISION OF ALLERGENIC EXTRACT;2/MORE INJECTIONS 2007 DoD VITAL CAPACITY, TOTAL (SEPARATE PROCEDURE) 2007 DoD VITAL CAPACITY, TOTAL (SEPARATE PROCEDURE) 2007 DoD VITAL CAPACITY, TOTAL (SEPARATE PROCEDURE) 2007 DoD VITAL CAPACITY, TOTAL (SEPARATE PROCEDURE) 2007 DoD VITAL CAPACITY, TOTAL (SEPARATE PROCEDURE) 2007 DoD PROFESSIONAL SERVICES FOR ALLERGEN IMMUNOTHERAPY NOT INCLUDING PROVISION OF ALLERGENIC EXTRACTS; 2 OR MORE INJECTIONS 2007 DoD PROFESSIONAL SER FOR ALLERGEN IMMUNOTHER IN THE OFFICE/INSTITUTION OF THE PRESCRIBING PHYSICIAN/OTH QUALIFIED HEALTH RAMP SERVICE AGENT,INCLUDI NG PROVISION OF ALLERGENIC EXTRACT;2/MORE INJECTIONS 2007 DoD PROFESSIONAL SER FOR ALLERGEN IMMUNOTHER IN THE OFFICE/INSTITUTION OF THE PRESCRIBING PHYSICIAN/OTH QUALIFIED HEALTH RAMP SERVICE AGENT,INCLUDI NG PROVISION OF ALLERGENIC EXTRACT;2/MORE INJECTIONS 2007 DoD VITAL CAPACITY, TOTAL (SEPARATE PROCEDURE) 2007 DoD PROFESSIONAL SER FOR ALLERGEN IMMUNOTHER IN THE OFFICE/INSTITUTION OF THE PRESCRIBING PHYSICIAN/OTH QUALIFIED HEALTH RAMP SERVICE AGENT,INCLUDI NG PROVISION OF ALLERGENIC EXTRACT;2/MORE INJECTIONS 2007 DoD PROFESSIONAL SERVICES FOR ALLERGEN IMMUNOTHERAPY NOT INCLUDING PROVISION OF ALLERGENIC EXTRACTS; 2 OR MORE INJECTIONS 2007 DoD VITAL CAPACITY, TOTAL (SEPARATE PROCEDURE) 2007 DoD VITAL CAPACITY, TOTAL (SEPARATE PROCEDURE) 2007 DoD VITAL CAPACITY, TOTAL (SEPARATE PROCEDURE) 2007 DoD VITAL CAPACITY, TOTAL (SEPARATE PROCEDURE) 2007 DoD VITAL CAPACITY, TOTAL (SEPARATE PROCEDURE) 2007 DoD VITAL CAPACITY, TOTAL (SEPARATE PROCEDURE) 2007 DoD VITAL CAPACITY, TOTAL (SEPARATE PROCEDURE) 2007 DoD VITAL CAPACITY, TOTAL (SEPARATE PROCEDURE) 2007 DoD VITAL CAPACITY, TOTAL (SEPARATE PROCEDURE) 2007 DoD VITAL CAPACITY, TOTAL (SEPARATE PROCEDURE) 2007 DoD VITAL CAPACITY, TOTAL (SEPARATE PROCEDURE) 2007 DoD VITAL CAPACITY, TOTAL (SEPARATE PROCEDURE) 2007 DoD VITAL CAPACITY, TOTAL (SEPARATE PROCEDURE) 2007 DoD VITAL CAPACITY, TOTAL (SEPARATE PROCEDURE) 2007 DoD SPIROMETRY, INCLUDING GRAPHIC RECORD, TOTAL AND TIMED VITAL CAPACITY, EXPIRATORY FLOW RATE MEASUREMENT(S), WITH OR WITHOUT MAXIMAL VOLUNTARY VENTILATION 2007 DoD VITAL CAPACITY, TOTAL (SEPARATE PROCEDURE) 2007 DoD VITAL CAPACITY, TOTAL (SEPARATE PROCEDURE) 2007 DoD PROFESSIONAL SER FOR ALLERGEN IMMUNOTHER IN THE OFFICE/INSTITUTION OF THE PRESCRIBING PHYSICIAN/OTH QUALIFIED HEALTH RAMP SERVICE AGENT,INCLUDI NG PROVISION OF ALLERGENIC EXTRACT;2/MORE INJECTIONS 2007 DoD PROFESSIONAL SER FOR ALLERGEN IMMUNOTHER IN THE OFFICE/INSTITUTION OF THE PRESCRIBING PHYSICIAN/OTH QUALIFIED HEALTH RAMP SERVICE AGENT,INCLUDI NG PROVISION OF ALLERGENIC EXTRACT;2/MORE INJECTIONS 2007 DoD PROFESSIONAL SER FOR ALLERGEN IMMUNOTHER IN THE OFFICE/INSTITUTION OF THE PRESCRIBING PHYSICIAN/OTH QUALIFIED HEALTH RAMP SERVICE AGENT,INCLUDI NG PROVISION OF ALLERGENIC EXTRACT;2/MORE INJECTIONS 2007 [facility] DIPHTHERIA, TETANUS TOXOIDS, AND ACELLULAR PERTUSSIS VACCINE (DTAP), WHEN ADMINISTERED TO INDIVIDUALS YOUNGER THAN 7 YEARS, FOR INTRAMUSCULAR USE 2007 [facility] PERCUTANEOUS TESTS (SCRATCH, PUNCTURE, PRICK) WITH ALLERGENIC EXTRACTS, IMMEDIATE TYPE REACTION, INCLUDING TEST INTERPRETATION AND REPORT, SPECIFY NUMBER OF TESTS 2007 DoD PRESSURIZED/NONPRESS INHAL TREAT FOR AC AIRWAY OBSTRUCT,THERAP PURPOSE &/FOR DIAG PURP SUCH SPUTUM INDUCTION W AN AEROSOL GEN,NEBULIZER,METER DOSE INHALER/INTERMIT POSIT PRESS BREATHING (IPPB) DEV 2006 [facility] SCREENING PAPANICOLAOU SMEAR; OBTAINING, PREPARING AND CONVEYANCE OF CERVICAL OR VAGINAL SMEAR TO LABORATORY 2006 [facility] COLLECTION OF VENOUS BLOOD BY VENIPUNCTURE 2005 [facility] INJECTION, TRIAMCINOLONE ACETONIDE, NOT OTHERWISE SPECIFIED, [address] [facility] NONINVASIVE EAR OR PULSE OXIMETRY FOR OXYGEN SATURATION; SINGLE DETERMINATION 2002 [facility] VITAL CAPACITY, TOTAL (SEPARATE PROCEDURE) 2001 [facility] SKIN TEST; TUBERCULOSIS, INTRADERMAL 2001 [facility] FAMILY PSYCHOTHERAPY (CONJOINT PSYCHOTHERAPY) (WITH PATIENT PRESENT), [address] [facility] PSYCHIATRIC DIAGNOSTIC INTERVIEW EXAMINATION 2000 [facility] PSYCHIATRIC EVALUATION OF HOSPITAL RECORDS, OTHER PSYCHIATRIC REPORTS, PSYCHOMETRIC AND/OR PROJECTIVE TESTS, AND OTHER ACCUMULATED DATA FOR MEDICALDIAGNOSTIC PURPOSES 2000 [facility] PNEUMOCOCCAL CONJUGATE VACCINE, 7 VALENT, FOR INTRAMUSCULAR USE 1999 [facility] BRONCHODILATION RESPONSIVENESS, [place] [address], PRE- AND POST-BRONCHODILATOR ADMINISTRATION 1999 [facility] COMPUTERIZED AXIAL TOMOGRAPHY OF ABDOMEN 1999 [facility] RADIOLOGIC EXAMINATION, CHEST; SINGLE VIEW, FRONTAL 1999 [facility] FAMILY PSYCHOTHERAPY (CONJOINT PSYCHOTHERAPY) (WITH PATIENT PRESENT), [address] [facility] RANGE OF MOTION MEASUREMENTS AND REPORT (SEPARATE PROCEDURE); HAND, WITH OR WITHOUT COMPARISON WITH NORMAL SIDE 1999 [facility] APPLICATION OF FINGER SPLINT; STATIC 1999 [facility] CHECKOUT FOR ORTHOTIC/PROSTHETIC USE, ESTABLISHED PATIENT, EACH [address] [facility] PHYSICAL PERFORMANCE TEST OR MEASUREMENT (EG, MUSCULOSKELETAL, FUNCTIONAL CAPACITY), WITH WRITTEN REPORT, EACH [address] [facility] Cervical or vaginal cancer screening; pelvic and clinical breast examination [address] [facility] Venipuncture Venipuncture [address] [facility] Desensitization Supervision - Multiple Extract Injections Desensitization Supervision - Multiple Extract Injections 10806 2013 PRICE LION Pulmonary Function VC (% Predicted Normal) Pulmonary Function VC (% Predicted Normal) 33902 2013 PRICE LION Pulmonary Function VC (% Predicted Normal) Pulmonary Function VC (% Predicted Normal) 22442 2013 PRICE LION Desensitization Supervision - Multiple Extract Injections Desensitization Supervision - Multiple Extract Injections 74555 2013 PRICE LION Desensitization Supervision - Multiple Extract Injections Desensitization Supervision - Multiple Extract Injections [address] [facility] Pulmonary Function VC (% Predicted Normal) Pulmonary Function VC (% Predicted Normal) [address] [facility] Desensitization Supervision - Multiple Extract Injections Desensitization Supervision - Multiple Extract Injections [address] [facility] Pulmonary Function VC (% Predicted Normal) Pulmonary Function VC (% Predicted Normal) 22608 2013 PRICE LION Desensitization Supervision - Multiple Extract Injections Desensitization Supervision - Multiple Extract Injections 53564 2013 PRICE LION Allergen Desensitization Rapid Allergen Desensitization Rapid [address] [facility] Pulmonary Function VC (% Predicted Normal) Pulmonary Function VC (% Predicted Normal) 63296 2013 IRAIS HANSEN Allergen Desensitization Rapid Allergen Desensitization Rapid 63870 2013 PRICE LION Pulmonary Function VC (% Predicted Normal) Pulmonary Function VC (% Predicted Normal) 04792 2013 PRICE LION Allergy Percutaneous tests - allergenic extracts Allergy Percutaneous tests - allergenic extracts [address] [facility] Pulmonary Function Tests Pulmonary Function Tests [address] [facility] Desensitization Supervision - Multiple Extract Injections Desensitization Supervision - Multiple Extract Injections 46810 2013 IRAIS HANSEN Pulmonary Function VC (% Predicted Normal) Pulmonary Function VC (% Predicted Normal) 54574 2013 IRAIS HANSEN Referral For Peak Cough Expiratory Flow Referral For Peak Cough Expiratory Flow [id number] 2013 KATY VASQUEZ Peak flow 420 DoD Desensitization Injection, Supply Multiple Allerg. Extracts Desensitization Injection, Supply Multiple Allerg. Extracts 97754 2013 KATY VASQUEZ Right upper 0.25 ml of red vial tree, cat, right lower 0.25 of red grass, weed; 0.25 ml of red, left arm mold, lowry, dust mite, dog: peak flow 420 [facility] Pulmonary Function Tests Pulmonary Function Tests 47096 2013 KATY VASQUEZ Pre and post xopenex [facility] Patient Education Asthma Metered Dose Inhaler Patient Education Asthma Metered Dose Inhaler 57168 2013 WARREN PHIPPS Patient counseled on the reasoning for the use of and given demonstration of the proper use of an MDI with spacer. Patient was able to demonstrate proper use and verbalizes understanding. [facility] Desensitization Supervision - Multiple Extract Injections Desensitization Supervision - Multiple Extract Injections [address] [facility] Pulmonary Function VC (% Predicted Normal) Pulmonary Function VC (% Predicted Normal) 22366 2013 IRAIS HANSEN Desensitization Supervision - Multiple Extract Injections Desensitization Supervision - Multiple Extract Injections 97686 2013 ANA LAURA PAZ Pulmonary Function VC (% Predicted Normal) Pulmonary Function VC (% Predicted Normal) 38687 2013 ANA LAURA PAZ Pulmonary Function VC (% Predicted Normal) Pulmonary Function VC (% Predicted Normal) [address] [facility] Desensitization Supervision - Multiple Extract Injections Desensitization Supervision - Multiple Extract Injections 39355 2013 PRICE LION Pulmonary Function VC (% Predicted Normal) Pulmonary Function VC (% Predicted Normal) [address] [facility] Desensitization Supervision - Multiple Extract Injections Desensitization Supervision - Multiple Extract Injections [address] [facility] Vaccines Vaccines 25086 2012 LIANA CALLEJAS Influenza Split (Injectable); Series #: 1; .5 mL; IM; Left Arm; Mfg: [employer]; Lot: [id number]; VIS given (Linda: 10/14/12). DoD Immunization Administration By Injection, One Vaccine Immunization Administration By Injection, One Vaccine [address] [facility] Desensitization Supervision - Multiple Extract Injections Desensitization Supervision - Multiple Extract Injections [address] [facility] Pulmonary Function VC (% Predicted Normal) Pulmonary Function VC (% Predicted Normal) 65641 2012 IRAIS HANSEN Desensitization Supervision - Multiple Extract Injections Desensitization Supervision - Multiple Extract Injections 86554 2012 ANA LAURA PAZ Pulmonary Function VC (% Predicted Normal) Pulmonary Function VC (% Predicted Normal) 07352 2012 ANA LAURA PAZ Pulmonary Function VC (% Predicted Normal) Pulmonary Function VC (% Predicted Normal) 21046 2012 ANA LAURA PAZ Desensitization Supervision - Multiple Extract Injections Desensitization Supervision - Multiple Extract Injections 9[address] [facility] Desensitization Supervision - Multiple Extract Injections Desensitization Supervision - Multiple Extract Injections [address] [facility] Pulmonary Function VC (% Predicted Normal) Pulmonary Function VC (% Predicted Normal) 26319 2012 ANA LAURA PAZ Pulmonary Function VC (% Predicted Normal) Pulmonary Function VC (% Predicted Normal) [address] [facility] Desensitization Supervision - Multiple Extract Injections Desensitization Supervision - Multiple Extract Injections [address] [facility] Desensitization Injection, Supply Multiple Allerg. Extracts Desensitization Injection, Supply Multiple Allerg. Extracts [address] [facility] Spirometry Spirometry [address] [facility] Desensitization Injection, Supply Multiple Allerg. Extracts Desensitization Injection, Supply Multiple Allerg. Extracts [address] [facility] Spirometry Spirometry [address] [facility] Portable peak flow meter [address] [facility] Desensitization Supervision - Multiple Extract Injections Desensitization Supervision - Multiple Extract Injections [address] [facility] Desensitization Injection, Supply Multiple Allerg. Extracts Desensitization Injection, Supply Multiple Allerg. Extracts [address] [facility] Pulmonary Function VC (% Predicted Normal) Pulmonary Function VC (% Predicted Normal) 12527 2012 IRAIS HANSEN Desensitization Injection, Supply Multiple Allerg. Extracts Desensitization Injection, Supply Multiple Allerg. Extracts [address] [facility] Pulmonary Function VC (% Predicted Normal) Pulmonary Function VC (% Predicted Normal) [address] [facility] Pulmonary Function Tests Pulmonary Function Tests [address] [facility] Desensitization Injection, Supply Single Allergenic Extract Desensitization Injection, Supply Single Allergenic Extract 63284 2012 FRANKI JAMES (g,w:) Right upper arm SQ (t,c:) Right lower arm SQ (m,dmx,cr,d:) Left arm SQ DoD Desensitization Injection, Supply Multiple Allerg. Extracts Desensitization Injection, Supply Multiple Allerg. Extracts [address] [facility] Pulmonary Function Tests Pulmonary Function Tests [address] [facility] Desensitization Injection, Supply Single Allergenic Extract Desensitization Injection, Supply Single Allergenic Extract [address] [facility] Desensitization Injection, Supply Multiple Allerg. Extracts Desensitization Injection, Supply Multiple Allerg. Extracts [address] [facility] Spirometry Peak Expiratory Flow Spirometry Peak Expiratory Flow [address] [facility] Desensitization Injection, Supply Multiple Allerg. Extracts Desensitization Injection, Supply Multiple Allerg. Extracts [address] [facility] Desensitization Injection, Supply Multiple Allerg. Extracts Desensitization Injection, Supply Multiple Allerg. Extracts [address] [facility] Spirometry Peak Expiratory Flow Spirometry Peak Expiratory Flow [address] [facility] Pneumococcal Polysaccharide Vaccine (Age 2Y+) Pneumococcal Polysaccharide Vaccine (Age 2Y+) 35354 2011 SHAKIR VICTORIA Pneumococcal; Series #: 1; .5 mL; IM; Left Arm; Mfg: [employer]; Lot: [id number]; VIS given (Linda: 12/25/2008). DoD Vaccines Vaccines 89077 2011 SHAKIR VICTORIA Influenza Split (Injectable - preservative free); Series #: 1; .5 mL; IM; Left Arm; Mfg: [employer]; Lot: [id number]; VIS given (Linda: 09/21/11). [facility] Immunization Administration By Injection, One Vaccine Immunization Administration By Injection, One Vaccine [address] [facility] Immunization Administration By Injection, Each Additional Vaccine [address] [facility] Spirometry Spirometry [address] [facility] Spirometry Spirometry [address] [facility] Spirometry Peak Expiratory Flow Spirometry Peak Expiratory Flow 39074 2011 KATY VASQUEZ DoD Desensitization Injection, Supply Multiple Allerg. Extracts Desensitization Injection, Supply Multiple Allerg. Extracts 87972 2011 KATY [address] She shots [facility] Spirometry Spirometry 38616 2011 KATY VASQUEZ DoD Desensitization Injection, Supply Multiple Allerg. Extracts Desensitization Injection, Supply Multiple Allerg. Extracts [address] [facility] Spirometry Peak Expiratory Flow Spirometry Peak Expiratory Flow [address] [facility] Pulmonary Function Tests Pulmonary Function Tests 70610 2011 KATY VASQUEZ DoD Pulmonary Function Tests Pulmonary Function Tests [address] [facility] Spirometry Spirometry 08383 2011 KATY VASQUEZ Pre and post Xopenex MDI 2 puffs. DoD Desensitization Injection, Supply Multiple Allerg. Extracts Desensitization Injection, Supply Multiple Allerg. Extracts 06734 2011 KATY VASQUEZ Administered 0.5 ml red vial T, C SQ to L upper arm, 0.5 ml red vial G, W SQ to R upper arm, and 0.5 ml red vial M, Dmx, Cr, D SQ to R upper arm, pt tolerated well. [facility] Spirometry Peak Expiratory Flow Spirometry Peak Expiratory Flow 16074 2011 KATY VASQUEZ PF 420 DoD Desensitization Injection, Supply Multiple Allerg. Extracts Desensitization Injection, Supply Multiple Allerg. Extracts 62196 2011 IRAIS HANSEN DoD Spirometry Peak Expiratory Flow Spirometry Peak Expiratory Flow 68564 2011 IRAIS HANSEN DoD Desensitization Injection, Supply Multiple Allerg. Extracts Desensitization Injection, Supply Multiple Allerg. Extracts 55493 2011 KATY VASQUEZ AIT X 3 sub-q, t, c to L lateral arm, g, w to R upper lateral arm, m, dmx, cr, d to R lower lateral arm. DoD Spirometry Peak Expiratory Flow Spirometry Peak Expiratory Flow 54225 2011 KATY VASQUEZ xd=[id number] DoD Pulmonary Function Tests Pulmonary Function Tests 70601 2011 KATY VASQUEZ Pre and post pirbuterol DoD Physician Supervised Injection Subcutaneous Physician Supervised Injection Subcutaneous 29377 2011 KATY VASQUEZ 2 allergy shots DoD Injection, methylprednisolone sodium succinate, up to 125 mg 2011 HOLLI LOPEZ Administered Solu Medrol 125 mg IM to L deltoid, pt tolerated well. DoD Pulmonary Function Tests Pulmonary Function Tests 37706 2011 JESSICAHOLLI DoD Desensitization Injection, Supply Multiple Allerg. Extracts Desensitization Injection, Supply Multiple Allerg. Extracts [address] [facility] Spirometry Peak Expiratory Flow Spirometry Peak Expiratory Flow [address] [facility] Spirometry Peak Expiratory Flow Spirometry Peak Expiratory Flow 68017 2011 LIONPRICE DoD Desensitization Injection, Supply Multiple Allerg. Extracts Desensitization Injection, Supply Multiple Allerg. Extracts 28648 2011 LION PRICE DoD Desensitization Injection, Supply Multiple Allerg. Extracts Desensitization Injection, Supply Multiple Allerg. Extracts [address] [facility] Spirometry Peak Expiratory Flow Spirometry Peak Expiratory Flow 83039 2011 IRAIS HANSEN DoD Desensitization Injection, Supply Multiple Allerg. Extracts Desensitization Injection, Supply Multiple Allerg. Extracts 63238 2011 VIDA OLIVAS AIT X 3 sub-q, two to R lateral arm, one to L lateral arm. DoD Desensitization Injection, Supply Multiple Allerg. Extracts Desensitization Injection, Supply Multiple Allerg. Extracts 62172 2011 VIDA OLIVAS 0.25 ml fed vial X 3 sub-q, two to R lateral arm, one to L lateral arm DoD Spirometry Peak Expiratory Flow Spirometry Peak Expiratory Flow 36925 2011 VIDA OLIVAS [id number] DoD Desensitization Injection, Supply Multiple Allerg. Extracts Desensitization Injection, Supply Multiple Allerg. Extracts 92824 2011 VIDA OLIVAS 0.50 ml red vial X 3 sub-q, two to L lateral arm, one to R lateral arm. DoD Desensitization Injection, Supply Multiple Allerg. Extracts Desensitization Injection, Supply Multiple Allerg. Extracts [address] [facility] Spirometry Peak Expiratory Flow Spirometry Peak Expiratory Flow 29214 2011 IRAIS HANSEN DoD Desensitization Injection, Supply Multiple Allerg. Extracts Desensitization Injection, Supply Multiple Allerg. Extracts 88632 2010 DAHIANA POSADA Received 3 allergy injections at 0.5 mL red vial for all 3 DoD Spirometry Peak Expiratory Flow Spirometry Peak Expiratory Flow 71992 2010 IRAIS HANSEN DoD Desensitization Injection, Supply Multiple Allerg. Extracts Desensitization Injection, Supply Multiple Allerg. Extracts [address] [facility] Pulmonary Function VC (% Predicted Normal) Pulmonary Function VC (% Predicted Normal) [address] [facility] Desensitization Supervision - Multiple Extract Injections Desensitization Supervision - Multiple Extract Injections [address] [facility] Pulmonary Function VC (% Predicted Normal) Pulmonary Function VC (% Predicted Normal) [address] [facility] Desensitization Supervision - Multiple Extract Injections Desensitization Supervision - Multiple Extract Injections [address] [facility] Desensitization Supervision - Multiple Extract Injections Desensitization Supervision - Multiple Extract Injections 80706 2018 PRICE LION 0.5ml red t-g-w to right and m-cr to left. [facility] Pulmonary Function VC (% Predicted Normal) Pulmonary Function VC (% Predicted Normal) [address] [facility] Pulmonary Function VC (% Predicted Normal) Pulmonary Function VC (% Predicted Normal) [address] [facility] Desensitization Supervision - Multiple Extract Injections Desensitization Supervision - Multiple Extract Injections [address] [facility] Pulmonary Function - Nitric Oxide Gas Determination Pulmonary Function - Nitric Oxide Gas Determination 11588 2018 WARREN PHIPPS FeNO = 17ppb [facility] Desensitization Supervision, 1+ Antigens, 2+ Mult Dose Vials Desensitization Supervision, 1+ Antigens, 2+ Mult Dose Vials 10685 2018 WARREN PHIPPS Allergen extract prescription reviewed and are of appropriate composition and concentration. Prescription order entered into the extract lab management system. [facility] Pulmonary Function VC (% Predicted Normal) Pulmonary Function VC (% Predicted Normal) [address] [facility] Desensitization Supervision - Multiple Extract Injections Desensitization Supervision - Multiple Extract Injections [address] [facility] Pulmonary Function VC (% Predicted Normal) Pulmonary Function VC (% Predicted Normal) [address] [facility] Desensitization Supervision - Multiple Extract Injections Desensitization Supervision - Multiple Extract Injections [address] [facility] Preventive Med Standardized Depre ion Screening: Negative For Symptoms Preventive Med Standardized Depression Screening: Negative For Symptoms 3351F 2018 EMILIA WIGGINS medcom form 774 completed verbally with the patient. denies any anxiety or depression. no HI/SI DoD Preventive Med Standardized Depre ion Screening: Negative For Symptoms Preventive Med Standardized Depression Screening: Negative For Symptoms 3351F [address] [facility] Desensitization Supervision - Multiple Extract Injections Desensitization Supervision - Multiple Extract Injections 64411 2017 PRICE LION 0.5 ml red t-g-w to left m-cr to right. DoD Pulmonary Function VC (% Predicted Normal) Pulmonary Function VC (% Predicted Normal) [address] [facility] Pulmonary Function VC (% Predicted Normal) Pulmonary Function VC (% Predicted Normal) [address] [facility] Desensitization Supervision - Multiple Extract Injections Desensitization Supervision - Multiple Extract Injections 10479 2017 IRAIS HANSEN Non-Physician Phone Call To Patient/Provider Brief (5-10min) Non-Physician Phone Call To Patient/Provider Brief (5-10min) [address] [facility] Pulmonary Function VC (% Predicted Normal) Pulmonary Function VC (% Predicted Normal) 36242 2017 IRAIS HANSEN Desensitization Supervision - Multiple Extract Injections Desensitization Supervision - Multiple Extract Injections 82258 2017 IRAIS HANSEN Screening papanicolaou smear; obtaining, preparing and conveyance of cervical or vaginal smear to laboratory [address] [facility] Desensitization Supervision - Multiple Extract Injections Desensitization Supervision - Multiple Extract Injections 72886 2017 PRICE LION 0.05ml red m-cr to left and t-g-w to right. DoD Pulmonary Function VC (% Predicted Normal) Pulmonary Function VC (% Predicted Normal) 68326 2017 PRICE LION DoD Simple Closure Of Wound Dehiscence With Packing Simple Closure Of Wound Dehiscence With Packing 21387 2017 DAHIANA GRIGSBY Packing strips, non-impregnated, sterile, up to 2 inches in width, per linear yard 2017 DAHIANA GRIGSBY Simple Closure Of Wound Dehiscence With Packing Simple Closure Of Wound Dehiscence With Packing [id number] 2017 DAHIANA GRIGSBY Preventive Med Standardized Depre ion Screening: Negative For Symptoms Preventive Med Standardized Depression Screening: Negative For Symptoms 3351F [address] [facility] Preventive Med Standardized Depre ion Screening: Negative For Symptoms Preventive Med Standardized Depression Screening: Negative For Symptoms 3351F 2017 EMILIA WIGGINS PART 1: Screening Data Date Scale Category Score 01/27/2018 PHQ 2 DEPRESSION SCREENER 1 PHQ 9 DEPRESSION SCALE Not Administered 01/27/2018 LUIS 2 ANXIETY SCREENER 2 LUIS 7 ANXIETY SCALE Not Administered 4QPTSD PTSD SCREENER Not Administered PCL-5 PTSD Not Administered 01/27/2018 AUDIT-C ALCOHOL SCREENER 1 01/27/2018 Functionality Question 0 01/27/2018 C-SSRS-S Current SUICIDALITY 0 [facility] Incision And Drainage Of Skin Absce Incision And Drainage Of Skin Abscess [address] [facility] Pulmonary Function VC (% Predicted Normal) Pulmonary Function VC (% Predicted Normal) [address] [facility] Desensitization Supervision - Multiple Extract Injections Desensitization Supervision - Multiple Extract Injections [address] [facility] Preventive Med Standardized Depre ion Screening: No Significant Symptoms Preventive Med Standardized Depression Screening: No Significant Symptoms 3352F [address] [facility] Desensitization Supervision - Multiple Extract Injections Desensitization Supervision - Multiple Extract Injections 79350 2017 VERA, PAM V Red vial: 0.5ml sq Left arm; m,cr Red vial: 0.5ml sq Right arm; t,g,w [facility] Pulmonary Function VC (% Predicted Normal) Pulmonary Function VC (% Predicted Normal) 83919 2017 VERA, PAM V Peak Flow 430 DoD Pulmonary Function VC (% Predicted Normal) Pulmonary Function VC (% Predicted Normal) [address] [facility] Desensitization Supervision - Multiple Extract Injections Desensitization Supervision - Multiple Extract Injections [address] [facility] Desensitization Supervision, 1+ Antigens, 2+ Mult Dose Vials Desensitization Supervision, 1+ Antigens, 2+ Mult Dose Vials 71741 2017 WARREN PHIPPS Allergen extract prescription reviewed and are of appropriate composition and concentration. Prescription order entered into the extract lab management system. [facility] Pulmonary Function VC (% Predicted Normal) Pulmonary Function VC (% Predicted Normal) [address] [facility] Desensitization Supervision - Multiple Extract Injections Desensitization Supervision - Multiple Extract Injections 57457 2017 WARREN PHIPPS refill extracts ordered in [facility] Pulmonary Function VC (% Predicted Normal) Pulmonary Function VC (% Predicted Normal) [address] [facility] Desensitization Supervision - Multiple Extract Injections Desensitization Supervision - Multiple Extract Injections [address] [facility] Desensitization Supervision - Multiple Extract Injections Desensitization Supervision - Multiple Extract Injections 90131 2017 VERA, PAM V Red vial: 0.5ml sq Left arm; m,cr Red vial: 0.5ml sq Right arm; t,g,w DoD Pulmonary Function VC (% Predicted Normal) Pulmonary Function VC (% Predicted Normal) 30717 2017 VERA, PAM V Peak Flow 420 DoD Desensitization Supervision - Multiple Extract Injections Desensitization Supervision - Multiple Extract Injections 27734 2017 PRICE LION 0.5ml red tj-g-w to left and m-cr to right DoD Pulmonary Function VC (% Predicted Normal) Pulmonary Function VC (% Predicted Normal) 93298 2017 AMISHA PRICE DoD Desensitization Supervision - Multiple Extract Injections Desensitization Supervision - Multiple Extract Injections 68304 2017 VERA, PAM V Red vial: 0.5ml sq Right arm; m,cr Red vial: 0.5ml sq Left arm; t,g,w DoD Pulmonary Function VC (% Predicted Normal) Pulmonary Function VC (% Predicted Normal) 69399 2017 VERA, PAM V Peak Flow meets standards: 400 DoD Desensitization Supervision, 1+ Antigens, 2+ Mult Dose Vials Desensitization Supervision, 1+ Antigens, 2+ Mult Dose Vials 30894 2017 WARREN PHIPPS Allergen extract prescription reviewed and are of appropriate composition and concentration. Prescription order entered into the extract lab management system. [facility] Pulmonary Function - Nitric Oxide Gas Determination Pulmonary Function - Nitric Oxide Gas Determination 65098 2017 WARERN PHIPPS FENO = 11ppb [facility] Pulmonary Function VC (% Predicted Normal) Pulmonary Function VC (% Predicted Normal) [address] [facility] Desensitization Supervision - Multiple Extract Injections Desensitization Supervision - Multiple Extract Injections 11946 2017 DAMON CHATMAN Preventive Med Standardized Depre ion Screening: Negative For Symptoms Preventive Med Standardized Depression Screening: Negative For Symptoms 3351F [address] [facility] Pulmonary Function VC (% Predicted Normal) Pulmonary Function VC (% Predicted Normal) 49952 2017 IRAIS HANSEN Desensitization Supervision - Multiple Extract Injections Desensitization Supervision - Multiple Extract Injections 94799 2017 IRAIS HANSEN Pulmonary Function VC (% Predicted Normal) Pulmonary Function VC (% Predicted Normal) 72560 2016 IRAIS HANSEN Desensitization Supervision - Multiple Extract Injections Desensitization Supervision - Multiple Extract Injections 38211 2016 IRAIS HANSEN Preventive Med Standardized Depre ion Screening: Negative For Symptoms Preventive Med Standardized Depression Screening: Negative For Symptoms 3351F [address] [facility] Pulmonary Function VC (% Predicted Normal) Pulmonary Function VC (% Predicted Normal) 70342 2016 IRAIS HANSEN Desensitization Supervision - Multiple Extract Injections Desensitization Supervision - Multiple Extract Injections 66314 2016 IRAIS HANSEN Pulmonary Function VC (% Predicted Normal) Pulmonary Function VC (% Predicted Normal) 32242 2016 IRAIS HANSEN Desensitization Supervision - Multiple Extract Injections Desensitization Supervision - Multiple Extract Injections 68098 2016 IRAIS HANSEN Pulmonary Function VC (% Predicted Normal) Pulmonary Function VC (% Predicted Normal) 59764 2016 DAMON CHATMAN Desensitization Supervision - Multiple Extract Injections Desensitization Supervision - Multiple Extract Injections 25991 2016 DAMON CHATMAN Preventive Med Standardized Depre ion Screening: Negative For Symptoms Preventive Med Standardized Depression Screening: Negative For Symptoms 3351F 2016 DAMON FERRER Desensitization Supervision - Multiple Extract Injections Desensitization Supervision - Multiple Extract Injections 36633 2016 PRICE LION sub-q injections to upper arms 0.5ml red t-g-w to left and m-cr to right. DoD Pulmonary Function VC (% Predicted Normal) Pulmonary Function VC (% Predicted Normal) 43245 2016 PRICE LION DoD Pulmonary Function VC (% Predicted Normal) Pulmonary Function VC (% Predicted Normal) 70031 2016 IRAIS HANSEN Desensitization Supervision - Multiple Extract Injections Desensitization Supervision - Multiple Extract Injections 36292 2016 IRAIS HANSEN Pulmonary Function VC (% Predicted Normal) Pulmonary Function VC (% Predicted Normal) [address] [facility] Desensitization Supervision - Multiple Extract Injections Desensitization Supervision - Multiple Extract Injections [address] [facility] Desensitization Supervision - Multiple Extract Injections Desensitization Supervision - Multiple Extract Injections 74555 2016 ANAIS VARELA Pulmonary Function VC (% Predicted Normal) Pulmonary Function VC (% Predicted Normal) 51092 2016 ANAIS VARELA Pulmonary Function VC (% Predicted Normal) Pulmonary Function VC (% Predicted Normal) [address] [facility] Desensitization Supervision - Multiple Extract Injections Desensitization Supervision - Multiple Extract Injections 16424 2016 GARY LIONA sub-q injections to upper arms 0.5ml red t-g-w to left and m-cr to right. [facility] Desensitization Supervision - Multiple Extract Injections Desensitization Supervision - Multiple Extract Injections 64765 2016 GARY LIONA sub-q injections toupper arms 0.5ml red t-g-w to right and m-cr to left. [facility] Pulmonary Function VC (% Predicted Normal) Pulmonary Function VC (% Predicted Normal) 63726 2016 PRICE LION Desensitization Supervision - Multiple Extract Injections Desensitization Supervision - Multiple Extract Injections 66778 2016 PRICE LION sub-q injections to upper arms 0.5ml red t-g-w to left and m-cr to right. [facility] Pulmonary Function VC (% Predicted Normal) Pulmonary Function VC (% Predicted Normal) 60377 2016 PRICE LION Desensitization Supervision - Multiple Extract Injections Desensitization Supervision - Multiple Extract Injections 52603 2016 ANAIS VARELA Desensitization Supervision - Single Injection Desensitization Supervision - Single Injection 69013 2016 ANAIS VARELA Pulmonary Function VC (% Predicted Normal) Pulmonary Function VC (% Predicted Normal) 66972 2016 ANAIS VARELA Desensitization Supervision - Multiple Extract Injections Desensitization Supervision - Multiple Extract Injections 49684 2015 IRAIS HANSEN Pulmonary Function VC (% Predicted Normal) Pulmonary Function VC (% Predicted Normal) [address] [facility] Pulmonary Function VC (% Predicted Normal) Pulmonary Function VC (% Predicted Normal) [address] [facility] Desensitization Supervision - Multiple Extract Injections Desensitization Supervision - Multiple Extract Injections [address] [facility] Spirometry Post-bronchodil[place] [address] WARREN PHIPPS Spirometry shows a restrictive pattern based on FVC <95% confidence interval with a normal FEV1/FVC ratio. Severity is based on FEV1 levels and is mild based on FEV1 70-99% of predicted. Spirometry status post bronchodilator DID NOT showed an increase in FEV1 >200 mL and >12% from baseline. DoD Desensitization Supervision, 1+ Antigens, 2+ Mult Dose Vials Desensitization Supervision, 1+ Antigens, 2+ Mult Dose Vials 62506 WARREN PHIPPS O Allergen extract prescription reviewed and are of appropriate composition and concentration. Prescription order entered into the extract lab management system. DoD Desensitization Injection, Supply Multiple Allerg. Extracts Desensitization Injection, Supply Multiple Allerg. Extracts 13624 2008 IRAIS HANSEN received [address] [facility] Spirometry Peak Expiratory Flow Spirometry Peak Expiratory Flow [address] [facility] Desensitization Injection, Supply Multiple Allerg. Extracts Desensitization Injection, Supply Multiple Allerg. Extracts [address] [facility] Spirometry Peak Expiratory Flow Spirometry Peak Expiratory Flow 19221 2008 ISSA CAMPOVERDE DoD Desensitization Injection, Supply Multiple Allerg. Extracts Desensitization Injection, Supply Multiple Allerg. Extracts 00111 2008 ISSA CAMPOVERDE received [address] [facility] Spirometry Peak Expiratory Flow Spirometry Peak Expiratory Flow [address] [facility] Desensitization Injection, Supply Multiple Allerg. Extracts Desensitization Injection, Supply Multiple Allerg. Extracts [address] [facility] Desensitization Injection, Supply Multiple Allerg. Extracts Desensitization Injection, Supply Multiple Allerg. Extracts [address] [facility] Spirometry Peak Expiratory Flow Spirometry Peak Expiratory Flow [address] [facility] Desensitization Injection, Supply Multiple Allerg. Extracts Desensitization Injection, Supply Multiple Allerg. Extracts [address] [facility] Desensitization Injection, Supply Multiple Allerg. Extracts Desensitization Injection, Supply Multiple Allerg. Extracts [address] [facility] Spirometry Peak Expiratory Flow Spirometry Peak Expiratory Flow [address] [facility] Desensitization Injection, Supply Multiple Allerg. Extracts Desensitization Injection, Supply Multiple Allerg. Extracts [address] [facility] Spirometry Peak Expiratory Flow Spirometry Peak Expiratory Flow [address] [facility] Spirometry Spirometry [address] [facility] Injection, methylprednisolone acetate, 40 mg [address] [facility] Spirometry Spirometry 72782 2008 PEREIRA, FELICIANO H [facility] Pulmonary Function Tests Pulmonary Function Tests 39003 2008 PEREIRA, FELICIANO H [facility] Desensitization Injection, Supply Multiple Allerg. Extracts Desensitization Injection, Supply Multiple Allerg. Extracts 09476 2008 ISSA CAMPOVERDE [address] [facility] Spirometry Peak Expiratory Flow Spirometry Peak Expiratory Flow [address] [facility] Desensitization Injection, Supply Multiple Allerg. Extracts Desensitization Injection, Supply Multiple Allerg. Extracts 59106 2008 ISSA CAMPOVERDE received [address] [facility] Spirometry Peak Expiratory Flow Spirometry Peak Expiratory Flow [address] [facility] Spirometry Peak Expiratory Flow Spirometry Peak Expiratory Flow [address] [facility] Desensitization Supervision - Multiple Extract Injections Desensitization Supervision - Multiple Extract Injections [address] [facility] Desensitization Injection, Supply Multiple Allerg. Extracts Desensitization Injection, Supply Multiple Allerg. Extracts [address] [facility] Spirometry Peak Expiratory Flow Spirometry Peak Expiratory Flow [address] [facility] Desensitization Injection, Supply Multiple Allerg. Extracts Desensitization Injection, Supply Multiple Allerg. Extracts [address] [facility] Spirometry Peak Expiratory Flow Spirometry Peak Expiratory Flow [address] [facility] Spirometry Peak Expiratory Flow Spirometry Peak Expiratory Flow 80852 2007 IRAIS HANSEN DoD Desensitization Injection, Supply Multiple Allerg. Extracts Desensitization Injection, Supply Multiple Allerg. Extracts 73871 2007 IRAIS HANSEN received [address] [facility] Spirometry Peak Expiratory Flow Spirometry Peak Expiratory Flow 69535 2007 HANSENIRAIS DoD Desensitization Injection, Supply Multiple Allerg. Extracts Desensitization Injection, Supply Multiple Allerg. Extracts 14107 2007 IRAIS HANSEN received 3 allergen injections DoD Desensitization Injection, Supply Multiple Allerg. Extracts Desensitization Injection, Supply Multiple Allerg. Extracts 20384 2007 IRAIS HANSEN received 3 allergen injections DoD Spirometry Peak Expiratory Flow Spirometry Peak Expiratory Flow 08771 2007 HANSENIRAIS DoD Desensitization Supervision - Multiple Extract Injections Desensitization Supervision - Multiple Extract Injections [address] [facility] Spirometry Peak Expiratory Flow Spirometry Peak Expiratory Flow 088[address] [facility] Desensitization Supervision - Multiple Extract Injections Desensitization Supervision - Multiple Extract Injections [address] [facility] Spirometry Peak Expiratory Flow Spirometry Peak Expiratory Flow [address] [facility] Spirometry Peak Expiratory Flow Spirometry Peak Expiratory Flow 18475 2007 HANSENIRAIS DoD Desensitization Injection, Supply Multiple Allerg. Extracts Desensitization Injection, Supply Multiple Allerg. Extracts 67504 2007 IRAIS HANSEN received 3 allergen injections DoD Desensitization Supervision - Multiple Extract Injections Desensitization Supervision - Multiple Extract Injections [address] [facility] Spirometry Peak Expiratory Flow Spirometry Peak Expiratory Flow [address] [facility] Desensitization Supervision - Multiple Extract Injections Desensitization Supervision - Multiple Extract Injections [address] [facility] Spirometry Peak Expiratory Flow Spirometry Peak Expiratory Flow [address] [facility] Desensitization Supervision - Multiple Extract Injections Desensitization Supervision - Multiple Extract Injections 47[address] [facility] Spirometry Peak Expiratory Flow Spirometry Peak Expiratory Flow 06390 [address] [facility] Spirometry Peak Expiratory Flow Spirometry Peak Expiratory Flow 56541 2007 HANSENIRAIS DoD Desensitization Injection, Supply Multiple Allerg. Extracts Desensitization Injection, Supply Multiple Allerg. Extracts 34186 2007 TYRONEIRAIS received 3 allergen injections DoD Desensitization Injection, Supply Multiple Allerg. Extracts Desensitization Injection, Supply Multiple Allerg. Extracts 61665 2007 ISSA CAMPOVERDE received 3 allergen injections DoD Spirometry Peak Expiratory Flow Spirometry Peak Expiratory Flow 23325 2007 ISSA CAMPOVERDE DoD Desensitization Supervision - Multiple Extract Injections Desensitization Supervision - Multiple Extract Injections 83986 2007 ISSA CAMPOVERDE DoD Spirometry Peak Expiratory Flow Spirometry Peak Expiratory Flow 57430 2007 ISSA CAMPOVERDE DoD Desensitization Injection, Supply Multiple Allerg. Extracts Desensitization Injection, Supply Multiple Allerg. Extracts 51347 2007 IARIS HANSEN received 3 allergen injections DoD Spirometry Peak Expiratory Flow Spirometry Peak Expiratory Flow 68677 2007 IRAIS HANSEN DoD Spirometry Peak Expiratory Flow Spirometry Peak Expiratory Flow 46216 2007 IRAIS HANSEN DoD Desensitization Injection, Supply Multiple Allerg. Extracts Desensitization Injection, Supply Multiple Allerg. Extracts 01795 2007 IRAIS HANSEN received 3 allergen injections DoD Spirometry Peak Expiratory Flow Spirometry Peak Expiratory Flow 77902 2007 IRAIS HANSEN DoD Desensitization Injection, Supply Multiple Allerg. Extracts Desensitization Injection, Supply Multiple Allerg. Extracts 37437 2007 IRAIS HANSEN received 3 allergen injections DoD Spirometry Peak Expiratory Flow Spirometry Peak Expiratory Flow 69643 2007 IRAIS HANSEN DoD Desensitization Injection, Supply Multiple Allerg. Extracts Desensitization Injection, Supply Multiple Allerg. Extracts 60053 2007 IRAIS HANSEN received 3 allergen injections DoD Spirometry Peak Expiratory Flow Spirometry Peak Expiratory Flow 13111 2007 IRAIS HANSEN DoD Desensitization Injection, Supply Multiple Allerg. Extracts Desensitization Injection, Supply Multiple Allerg. Extracts 47786 2007 IRAIS HANSEN received 3 allergen injections DoD Spirometry Peak Expiratory Flow Spirometry Peak Expiratory Flow 20292 2007 IRAIS HANSEN DoD Desensitization Injection, Supply Multiple Allerg. Extracts Desensitization Injection, Supply Multiple Allerg. Extracts 22962 2007 IRAIS HANSEN received 3 allergen injections DoD Spirometry Peak Expiratory Flow Spirometry Peak Expiratory Flow 19661 2007 IRAIS HANSEN DoD Desensitization Injection, Supply Multiple Allerg. Extracts Desensitization Injection, Supply Multiple Allerg. Extracts 21092 2007 IRAIS HANSEN received 3 allergen injections DoD Spirometry Peak Expiratory Flow Spirometry Peak Expiratory Flow 82854 2007 IRAIS HANSEN DoD Desensitization Injection, Supply Multiple Allerg. Extracts Desensitization Injection, Supply Multiple Allerg. Extracts 09542 2007 IRAIS HANSEN received 3 allergen injections DoD Spirometry Peak Expiratory Flow Spirometry Peak Expiratory Flow 36858 2007 IRAIS HANSEN DoD Desensitization Injection, Supply Multiple Allerg. Extracts Desensitization Injection, Supply Multiple Allerg. Extracts 20119 2007 IRAIS HANSEN received 3 allergen injections DoD Spirometry Peak Expiratory Flow Spirometry Peak Expiratory Flow 70914 2007 IRAIS HANSEN DoD Desensitization Injection, Supply Multiple Allerg. Extracts Desensitization Injection, Supply Multiple Allerg. Extracts 62729 2007 IRAIS HANSEN received 3 allergen injections DoD Spirometry Peak Expiratory Flow Spirometry Peak Expiratory Flow [id number] 2007 IRAIS HANSEN DoD Desensitization Injection, Supply Multiple Allerg. Extracts Desensitization Injection, Supply Multiple Allerg. Extracts 71545 2007 IRAIS HANSEN received 3 allergen injections DoD Spirometry Peak Expiratory Flow Spirometry Peak Expiratory Flow 60062 2007 IRAIS HANSEN DoD Desensitization Injection, Supply Multiple Allerg. Extracts Desensitization Injection, Supply Multiple Allerg. Extracts 02000 2007 IRAIS HANSEN received 3 allergen injections DoD Spirometry Peak Expiratory Flow Spirometry Peak Expiratory Flow 49978 2007 IRAIS HANSEN [place] DoD Desensitization Injection, Supply Multiple Allerg. Extracts Desensitization Injection, Supply Multiple Allerg. Extracts 15862 2007 IRAIS HANSEN received 3 allergen injections DoD Spirometry Peak Expiratory Flow Spirometry Peak Expiratory Flow 91903 2007 IRAIS HANSEN [place] DoD Desensitization Injection, Supply Multiple Allerg. Extracts Desensitization Injection, Supply Multiple Allerg. Extracts 19368 2007 IRAIS HANSEN received 3 allergen injections DoD Spirometry Peak Expiratory Flow Spirometry Peak Expiratory Flow 47654 2007 TYRONE IRAIS [place] DoD Desensitization Injection, Supply Multiple Allerg. Extracts Desensitization Injection, Supply Multiple Allerg. Extracts 57995 2007 IRAIS HANSEN received 3 allergen injections DoD Desensitization Injection, Supply Multiple Allerg. Extracts Desensitization Injection, Supply Multiple Allerg. Extracts 45842 2007 AMY RAY 3 injections given DoD Spirometry Peak Expiratory Flow Spirometry Peak Expiratory Flow 14839 2007 AMY RAY DoD Spirometry Spirometry 20850 2007 AMY RAY PFT Normal DoD Spirometry Peak Expiratory Flow Spirometry Peak Expiratory Flow 07273 2007 HANSENIRAIS DoD Desensitization Injection, Supply Multiple Allerg. Extracts Desensitization Injection, Supply Multiple Allerg. Extracts 03862 2007 IRAIS HANSEN received 3 allergen injections DoD Desensitization Injection, Supply Multiple Allerg. Extracts Desensitization Injection, Supply Multiple Allerg. Extracts 35905 2007 IRAIS HANSEN received 3 allergen injections DoD Desensitization Injection, Supply Multiple Allerg. Extracts Desensitization Injection, Supply Multiple Allerg. Extracts [address] [facility] Pulmonary Function Tests Pulmonary Function Tests 75904 2007 KATY VASQUEZ before and after atervent DoD Desensitization Injection, Supply Multiple Allerg. Extracts Desensitization Injection, Supply Multiple Allerg. Extracts [address] [facility] Allergen Desensitization Allergen Desensitization [address] [facility] Spirometry Peak Expiratory Flow Spirometry Peak Expiratory Flow [address] [facility] DTaP Vaccine DTaP Vaccine [address] [facility] Pneumococcal Polysaccharide Vaccine (Age 2Y+) Pneumococcal Polysaccharide Vaccine (Age 2Y+) [address] [facility] Spirometry Spirometry 79857 2007 KATY VASQUEZ before and after albuterol [facility] Allergy Percutaneous tests - allergenic extracts [address] [facility] Spirometry Spirometry [address] [facility] Inhalation Treatment (Nonpre urized) Inhalation Treatment (Nonpressurized) [address] [facility] Screening papanicolaou smear; obtaining, preparing and conveyance of cervical or vaginal smear to laboratory [address] [facility] Pulse Oximetry Pulse Oximetry [address] [facility] Desensitization Supervision - Multiple Extract Injections Desensitization Supervision - Multiple Extract Injections [address] [facility] Pulmonary Function VC (% Predicted Normal) Pulmonary Function VC (% Predicted Normal) 11313 2015 IRAIS HANSEN Immunization Administration By Injection, One Vaccine Immunization Administration By Injection, One Vaccine [address] [facility] Influenza Virus Vaccine Inactivated, Adjuvanted, For IM Use Influenza Virus Vaccine Inactivated, Adjuvanted, For IM Use 62122 2015 IRAIS HANSEN Influenza, Trivalent, Adjuvanted; Series #: 1; .5 mL; IM; Right Arm; Mfg: [employer]; Lot: [id number]; VIS given (Linda: 10/26/14). DoD Desensitization Supervision - Multiple Extract Injections Desensitization Supervision - Multiple Extract Injections 35869 2015 KATY VASQUEZ [address] [facility] Pulmonary Function Tests Pulmonary Function Tests 38359 2015 KATY VASQUEZ DoD Desensitization Supervision - Multiple Extract Injections Desensitization Supervision - Multiple Extract Injections 70651 2015 IRAIS HANSEN Pulmonary Function VC (% Predicted Normal) Pulmonary Function VC (% Predicted Normal) [address] [facility] Desensitization Supervision - Multiple Extract Injections Desensitization Supervision - Multiple Extract Injections 69907 2015 PRICE LION sub-q injections to upper arms 0.5ml red t-w-g to left upper and 0.5ml m-cr to right. [facility] Pulmonary Function VC (% Predicted Normal) Pulmonary Function VC (% Predicted Normal) [address] [facility] Desensitization Supervision - Multiple Extract Injections Desensitization Supervision - Multiple Extract Injections 09245 2015 IRAIS HANSEN Pulmonary Function VC (% Predicted Normal) Pulmonary Function VC (% Predicted Normal) 12385 2015 IRAIS HANSEN Desensitization Supervision - Multiple Extract Injections Desensitization Supervision - Multiple Extract Injections 81649 2015 IRAIS HANSEN Pulmonary Function VC (% Predicted Normal) Pulmonary Function VC (% Predicted Normal) [address] [facility] Desensitization Supervision - Multiple Extract Injections Desensitization Supervision - Multiple Extract Injections [address] [facility] Pulmonary Function VC (% Predicted Normal) Pulmonary Function VC (% Predicted Normal) 83029 2015 PRICE LION DoD Desensitization Supervision - Multiple Extract Injections Desensitization Supervision - Multiple Extract Injections 07866 2015 IRAIS HANSEN Pulmonary Function VC (% Predicted Normal) Pulmonary Function VC (% Predicted Normal) 00188 2015 IRAIS HANSEN Pulmonary Function VC (% Predicted Normal) Pulmonary Function VC (% Predicted Normal) 87998 2015 FELIPE FORBES Desensitization Supervision - Multiple Extract Injections Desensitization Supervision - Multiple Extract Injections 21616 2015 FELIPE FORBES Pulse Oximetry Pulse Oximetry 99963 2015 RADHA YISEL [facility] Pulmonary Function VC (% Predicted Normal) Pulmonary Function VC (% Predicted Normal) 76351 2015 FELIPE FORBES Desensitization Supervision - Multiple Extract Injections Desensitization Supervision - Multiple Extract Injections 39995 2015 FELIPE FORBES Desensitization Supervision - Multiple Extract Injections Desensitization Supervision - Multiple Extract Injections 08169 2015 IRAIS HANSEN Pulmonary Function VC (% Predicted Normal) Pulmonary Function VC (% Predicted Normal) 90571 2015 IRAIS HANSEN Desensitization Supervision - Multiple Extract Injections Desensitization Supervision - Multiple Extract Injections 09889 2015 PRICE LION Pulmonary Function VC (% Predicted Normal) Pulmonary Function VC (% Predicted Normal) 97416 2015 PRICE LION Desensitization Supervision - Multiple Extract Injections Desensitization Supervision - Multiple Extract Injections 88832 2015 PRICE LION Pulmonary Function VC (% Predicted Normal) Pulmonary Function VC (% Predicted Normal) 73577 2015 PRICE LION Pulmonary Function VC (% Predicted Normal) Pulmonary Function VC (% Predicted Normal) 94012 2015 FELIPE FORBES Desensitization Supervision - Multiple Extract Injections Desensitization Supervision - Multiple Extract Injections 89547 2015 FELIPE FORBES Desensitization Supervision - Multiple Extract Injections Desensitization Supervision - Multiple Extract Injections 24166 2014 PRICE LION Pulmonary Function VC (% Predicted Normal) Pulmonary Function VC (% Predicted Normal) 51656 2014 PRICE LION Vaccines Vaccines 06749 2014 FELIPE FORBES Influenza Split (Injectable - preservative free); Series #: 1; .5 mL; IM; Left Arm; [facility] [place] [facility]: [employer], [employer].; Lot: [id number]; VIS given (Linda: 10/26/2014). DoD Immunization Administration By Injection, One Vaccine Immunization Administration By Injection, One Vaccine 30192 2014 FELIPE FORBES Desensitization Supervision - Multiple Extract Injections Desensitization Supervision - Multiple Extract Injections 66729 2014 IRAIS HANSEN Pulmonary Function VC (% Predicted Normal) Pulmonary Function VC (% Predicted Normal) 76686 2014 IRAIS HANSEN Desensitization Supervision - Multiple Extract Injections Desensitization Supervision - Multiple Extract Injections 04077 2014 PRICE LION Pulmonary Function VC (% Predicted Normal) Pulmonary Function VC (% Predicted Normal) 14076 2014 PRICE LION Desensitization Supervision - Multiple Extract Injections Desensitization Supervision - Multiple Extract Injections 22111 2014 IRAIS HANSEN Pulmonary Function VC (% Predicted Normal) Pulmonary Function VC (% Predicted Normal) 51263 2014 IRAIS HNASEN Desensitization Supervision - Multiple Extract Injections Desensitization Supervision - Multiple Extract Injections 91474 2014 IRAIS HANSEN Pulmonary Function VC (% Predicted Normal) Pulmonary Function VC (% Predicted Normal) 89011 2014 IRAIS HANSEN Desensitization Supervision - Multiple Extract Injections Desensitization Supervision - Multiple Extract Injections 93799 2014 PRICE LION Pulmonary Function VC (% Predicted Normal) Pulmonary Function VC (% Predicted Normal) 98197 2014 PRICE LION Desensitization Supervision - Multiple Extract Injections Desensitization Supervision - Multiple Extract Injections 47620 2014 IRAIS HANSEN Pulmonary Function VC (% Predicted Normal) Pulmonary Function VC (% Predicted Normal) 13723 2014 IRAIS HANSEN Desensitization Supervision - Multiple Extract Injections Desensitization Supervision - Multiple Extract Injections 45810 2014 PRICE LION Pulmonary Function VC (% Predicted Normal) Pulmonary Function VC (% Predicted Normal) 50261 2014 PRICE LION Desensitization Supervision - Multiple Extract Injections Desensitization Supervision - Multiple Extract Injections 99324 2014 IRAIS HANSEN Pulmonary Function VC (% Predicted Normal) Pulmonary Function VC (% Predicted Normal) 86414 2014 IRAIS HANSEN Pulmonary Function VC (% Predicted Normal) Pulmonary Function VC (% Predicted Normal) [address] [facility] Desensitization Supervision - Multiple Extract Injections Desensitization Supervision - Multiple Extract Injections [address] [facility] Respiratory Equip IPPB Related Equip Nebulizer Respiratory Equip IPPB Related Equip Nebulizer 62729 [address] [facility] Pulmonary Function Tests Pulmonary Function Tests 60335 2014 KATY VASQUEZ pre and post albuterol inhaler and post albuterol neb [facility] Pulmonary Function VC (% Predicted Normal) Pulmonary Function VC (% Predicted Normal) 64773 2014 ANA LAURA PAZ Peak Flow [facility] Desensitization Supervision - Multiple Extract Injections Desensitization Supervision - Multiple Extract Injections [address] [facility] Pulmonary Function VC (% Predicted Normal) Pulmonary Function VC (% Predicted Normal) 10488 2014 ANA LAURA PAZ Desensitization Supervision - Multiple Extract Injections Desensitization Supervision - Multiple Extract Injections 66471 2014 ANA LAURA PAZ Desensitization Supervision, 1+ Antigens, 2+ Mult Dose Vials Desensitization Supervision, 1+ Antigens, 2+ Mult Dose Vials 41489 2014 WARREN PHIPPS Allergen extract prescription reviewed and are of appropriate composition and concentration. Prescription order entered into the extract lab management system. [facility] Pulmonary Function VC (% Predicted Normal) Pulmonary Function VC (% Predicted Normal) 68466 2014 ANA LAURA PAZ Desensitization Supervision - Multiple Extract Injections Desensitization Supervision - Multiple Extract Injections 66652 2014 ANA LAURA PAZ Injection, methylprednisolone acetate, 80 mg [address] [facility] Desensitization Supervision - Multiple Extract Injections Desensitization Supervision - Multiple Extract Injections 91568 2013 ELDER JACK Red Vial, 0.50ml SQ in left upper posterior arm, (m, Cr, ) Red Vial, 0.50ml SQ in right upper posterior arm, (t, g, w) [facility] Pulmonary Function VC (% Predicted Normal) Pulmonary Function VC (% Predicted Normal) 58854 [address] [facility] Pulmonary Function VC (% Predicted Normal) Pulmonary Function VC (% Predicted Normal) 00374 2013 FELIPE FORBES Desensitization Supervision - Multiple Extract Injections Desensitization Supervision - Multiple Extract Injections [address] [facility] Desensitization Supervision - Multiple Extract Injections Desensitization Supervision - Multiple Extract Injections [address] [facility] Pulmonary Function VC (% Predicted Normal) Pulmonary Function VC (% Predicted Normal) [address] [facility] Injection, triamcinolone acetonide, not otherwise specified, 10 mg 2013 COMFORT HOOPER MED ISSUED AND ADMINISTERED IN CLINIC [facility] Physician Supervised Injection Intramuscular Physician Supervised Injection Intramuscular [address] [facility] Pulse Oximetry Pulse Oximetry 54661 2013 COMFORT HOOPER DONE IN CLINIC DoD Respiratory Equip IPPB Nebulizer Ultrasonic Respiratory Equip IPPB Nebulizer Ultrasonic 42358 2013 COMFORT HOOPER Done in clinic - started @ 0905 - albuterol/atrov ent via N. [facility] Desensitization Supervision - Multiple Extract Injections Desensitization Supervision - Multiple Extract Injections 33144 2013 ELDER JACK RED VIAL 0.50ML SQ IN RIGHT UPPER POSTERIOR ARM, (M, CR) RED VIAL 0.50ML SQ IN LEFT UPPER POSTERIOR ARM, (T, G, W) [facility] Pulmonary Function VC (% Predicted Normal) Pulmonary Function VC (% Predicted Normal) 44843 [address] [facility] Desensitization Supervision - Multiple Extract Injections Desensitization Supervision - Multiple Extract Injections [address] [facility] Pulmonary Function VC (% Predicted Normal) Pulmonary Function VC (% Predicted Normal) 456[address] [facility] Desensitization Supervision - Multiple Extract Injections Desensitization Supervision - Multiple Extract Injections [address] [facility] Pulmonary Function VC (% Predicted Normal) Pulmonary Function VC (% Predicted Normal) [address] [facility] Pulmonary Function VC (% Predicted Normal) Pulmonary Function VC (% Predicted Normal) 38626 2013 PRICE LION Desensitization Supervision - Multiple Extract Injections Desensitization Supervision - Multiple Extract Injections 81634 2013 PRICE LION Pulmonary Function VC (% Predicted Normal) Pulmonary Function VC (% Predicted Normal) 20421 2013 PRICE LION Desensitization Supervision - Multiple Extract Injections Desensitization Supervision - Multiple Extract Injections 68183 2013 PRICE LION Pulmonary Function VC (% Predicted Normal) Pulmonary Function VC (% Predicted Normal) 11593 2013 ANA LAURA PAZ Desensitization Supervision - Multiple Extract Injections Desensitization Supervision - Multiple Extract Injections 71726 2013 ANA LAURA PAZ Pulmonary Function VC (% Predicted Normal) Pulmonary Function VC (% Predicted Normal) 31055 2013 PRICE LION Desensitization Supervision - Multiple Extract Injections Desensitization Supervision - Multiple Extract Injections 67208 2013 PRICE LION Desensitization Supervision - Multiple Extract Injections Desensitization Supervision - Multiple Extract Injections 37777 2013 IRAIS HANSEN Pulmonary Function VC (% Predicted Normal) Pulmonary Function VC (% Predicted Normal) 87093 2013 IRAIS HANSEN Desensitization Supervision - Multiple Extract Injections Desensitization Supervision - Multiple Extract Injections 10973 2013 ANA LAURA PAZ Pulmonary Function VC (% Predicted Normal) Pulmonary Function VC (% Predicted Normal) 76166 2013 ANA LAURA PAZ Peak Flow= 450 DoD Pulmonary Function VC (% Predicted Normal) Pulmonary Function VC (% Predicted Normal) 67523 2013 PRICE LION Desensitization Supervision - Multiple Extract Injections Desensitization Supervision - Multiple Extract Injections 72786 2013 PRICE LION Desensitization Supervision - Multiple Extract Injections Desensitization Supervision - Multiple Extract Injections 66784 2013 ANA LAURA PAZ Pulmonary Function VC (% Predicted Normal) Pulmonary Function VC (% Predicted Normal) 56859 2013 ANA LAURA PAZ Peak Flow = 430 DoD Pulmonary Function VC (% Predicted Normal) Pulmonary Function VC (% Predicted Normal) 55948 2013 ANA LAURA PAZ Desensitization Supervision - Multiple Extract Injections Desensitization Supervision - Multiple Extract Injections 88494 2013 ANA LAURA PAZ Pulmonary Function VC (% Predicted Normal) Pulmonary Function VC (% Predicted Normal) 15541 2013 PRICE LION Desensitization Supervision - Multiple Extract Injections Desensitization Supervision - Multiple Extract Injections 82274 2013 PRICE LION Spirometry Peak Expiratory Flow Spirometry Peak Expiratory Flow 16798 2010 IRAIS HANSEN Desensitization Injection, Supply Multiple Allerg. Extracts Desensitization Injection, Supply Multiple Allerg. Extracts 39520 2010 IRAIS HANSEN Screening papanicolaou smear; obtaining, preparing and conveyance of cervical or vaginal smear to laboratory [address] [facility] Spirometry Peak Expiratory Flow Spirometry Peak Expiratory Flow 10170 2010 LIONPRICE DoD Desensitization Injection, Supply Multiple Allerg. Extracts Desensitization Injection, Supply Multiple Allerg. Extracts 27167 2010 GARY LIONA DoD Desensitization Injection, Supply Multiple Allerg. Extracts Desensitization Injection, Supply Multiple Allerg. Extracts [id number] VIDA OLIVAS 0.50 ml red vial X 3 sub-q, two to L lateral arm, one to R lateral arm. DoD Spirometry Peak Expiratory Flow Spirometry Peak Expiratory Flow 27024 2010 VIDA OLIVAS rq=967 DoD Desensitization Injection, Supply Multiple Allerg. Extracts Desensitization Injection, Supply Multiple Allerg. Extracts 2010 HOLLI LOPEZ Administered 0.5 ml red vial SQ to L upper arm and 0.5 ml red vial SQ x2 to R upper arm, pt tolerated well. [facility] Spirometry Peak Expiratory Flow Spirometry Peak Expiratory Flow 55417 2010 HOLLI LOPEZ PF 400 DoD Spirometry Peak Expiratory Flow Spirometry Peak Expiratory Flow 67582 2010 IRAIS HANSEN DoD Desensitization Injection, Supply Multiple Allerg. Extracts Desensitization Injection, Supply Multiple Allerg. Extracts 2010 IRAIS HANSEN DoD Desensitization Injection, Supply Multiple Allerg. Extracts Desensitization Injection, Supply Multiple Allerg. Extracts 2010 ISSA CAMPOVERDE SQ x 3 - 0.40 ml EA, RU / RL and LT arm respectively, RED vial DoD Spirometry Peak Expiratory Flow Spirometry Peak Expiratory Flow 75561 2010 ISSA CAMPOVERDE PF = 450 DoD Spirometry Peak Expiratory Flow Spirometry Peak Expiratory Flow 38195 2010 IRAIS HANSEN DoD Desensitization Injection, Supply Multiple Allerg. Extracts Desensitization Injection, Supply Multiple Allerg. Extracts 662362010 LOVELY HANSENELA [place] DoD Spirometry Peak Expiratory Flow Spirometry Peak Expiratory Flow 35511 2010 LOVELY HANSENELA [place] DoD Desensitization Injection, Supply Multiple Allerg. Extracts Desensitization Injection, Supply Multiple Allerg. Extracts 15709 2010 LOVELY HANSENELA [place] DoD Spirometry Peak Expiratory Flow Spirometry Peak Expiratory Flow 56887 2010 LOVELY HANSENELA [place] DoD Desensitization Injection, Supply Multiple Allerg. Extracts Desensitization Injection, Supply Multiple Allerg. Extracts 33636 2010 IRAIS HANSEN DoD Spirometry Peak Expiratory Flow Spirometry Peak Expiratory Flow 63323 2010 IRAIS HANSEN DoD Desensitization Injection, Supply Multiple Allerg. Extracts Desensitization Injection, Supply Multiple Allerg. Extracts [id number] IRAIS HANSEN DoD Desensitization Injection, Supply Multiple Allerg. Extracts Desensitization Injection, Supply Multiple Allerg. Extracts 717472010 PRICE LION injection to bilat upper arms x2 to left arm DoD Spirometry Spirometry 60919 2010 PRICE LION pt goal >/= 360, goal met 450 DoD Spirometry Peak Expiratory Flow Spirometry Peak Expiratory Flow 60375 2010 IRAIS HANSEN DoD Desensitization Injection, Supply Multiple Allerg. Extracts Desensitization Injection, Supply Multiple Allerg. Extracts 2010 IRAIS HANSEN DoD Desensitization Injection, Supply Multiple Allerg. Extracts Desensitization Injection, Supply Multiple Allerg. Extracts 2010 HOLLI LOPEZ Administered 0.35 ml red vial SQ to R upper arm and 0.35 ml red vial SQ x2 to L upper arm, pt tolerated well. DoD Spirometry Peak Expiratory Flow Spirometry Peak Expiratory Flow 93834 2010 HOLLI LOPEZ PF 450 DoD Desensitization Injection, Supply Multiple Allerg. Extracts Desensitization Injection, Supply Multiple Allerg. Extracts 963682010 VIDA OLIVAS 0.30 ml red vial X 3 sub-q, two to R lateral arm, one to L lateral arm. DoD Spirometry Peak Expiratory Flow Spirometry Peak Expiratory Flow 50138 2010 VIDA OLIVAS sc=221 DoD Spirometry Peak Expiratory Flow Spirometry Peak Expiratory Flow 53421 2010 IRAIS HANSEN DoD Desensitization Injection, Supply Multiple Allerg. Extracts Desensitization Injection, Supply Multiple Allerg. Extracts 034102010 IRAIS HANSEN DoD Spirometry Peak Expiratory Flow Spirometry Peak Expiratory Flow 21543 2010 ISSA CAMPOVERDE PF = 430 DoD Desensitization Injection, Supply Multiple Allerg. Extracts Desensitization Injection, Supply Multiple Allerg. Extracts [id number] ISSA CAMPOVERDE allergen inj x 3 SQ -- 0.50 cc EA, RED vial DoD Desensitization Injection, Supply Multiple Allerg. Extracts Desensitization Injection, Supply Multiple Allerg. Extracts 184992010 IRAIS HANSEN [facility] Spirometry Peak Expiratory Flow Spirometry Peak Expiratory Flow 80448 2010 IRAIS HANSEN DoD Desensitization Injection, Supply Multiple Allerg. Extracts Desensitization Injection, Supply Multiple Allerg. Extracts 91624 2010 VIDA OLIVAS 0.50 ml red vial X 3 sub-q, two to R lateral arm, one to L lateral arm. [facility] Spirometry Peak Expiratory Flow Spirometry Peak Expiratory Flow 47374 2010 VIDA OLIVAS QP=226 [facility] Pulmonary Function Tests Flow Volume Loop Pulmonary Function Tests Flow Volume Loop 96178 2010 KATY VASQUEZ ANNUAL EVALUATION - COMPARISON FLOW VOLUME LOOP [facility] Spirometry Peak Expiratory Flow Spirometry Peak Expiratory Flow [address] [facility] Desensitization Injection, Supply Multiple Allerg. Extracts Desensitization Injection, Supply Multiple Allerg. Extracts [address] [facility] Desensitization Injection, Supply Multiple Allerg. Extracts Desensitization Injection, Supply Multiple Allerg. Extracts [address] [facility] Allergen Desensitization Allergen Desensitization [address] [facility] Spirometry Spirometry 06176 2009 PRICE LION pt goal >/= 360, results 430. [facility] Desensitization Injection, Supply Multiple Allerg. Extracts Desensitization Injection, Supply Multiple Allerg. Extracts [address] [facility] Spirometry Peak Expiratory Flow Spirometry Peak Expiratory Flow [address] [facility] Desensitization Injection, Supply Multiple Allerg. Extracts Desensitization Injection, Supply Multiple Allerg. Extracts 46809 2009 VIDA OLIVAS Pt. education provided about s/sx adverse reactions. Pt. verbalized understanding. [facility] Spirometry Peak Expiratory Flow Spirometry Peak Expiratory Flow [address] [facility] Desensitization Injection, Supply Multiple Allerg. Extracts Desensitization Injection, Supply Multiple Allerg. Extracts 04879 2009 VIDA OLIVAS Pt. education provided about /sx adverse reactions. Pt. verbalized understanding. [facility] Spirometry Peak Expiratory Flow Spirometry Peak Expiratory Flow [address] [facility] Desensitization Injection, Supply Multiple Allerg. Extracts Desensitization Injection, Supply Multiple Allerg. Extracts 53359 2009 VIDA OLIVAS Pt. education provided about s/sx adverse reactions. Pt. verbalized undetstanding. [facility] Spirometry Peak Expiratory Flow Spirometry Peak Expiratory Flow [address] [facility] Desensitization Injection, Supply Multiple Allerg. Extracts Desensitization Injection, Supply Multiple Allerg. Extracts [id number] VIDA OLIVAS Pt. education provided about s/sx adverse readtions. Pt. verbalized understanding. [facility] Spirometry Peak Expiratory Flow Spirometry Peak Expiratory Flow [address] [facility] Desensitization Injection, Supply Multiple Allerg. Extracts Desensitization Injection, Supply Multiple Allerg. Extracts [id number] VIDA OLIVAS Pt. education provided about s/sx adverse reactions. Pt. verbalized understanding. [facility] Spirometry Peak Expiratory Flow Spirometry Peak Expiratory Flow [address] [facility] Spirometry Peak Expiratory Flow Spirometry Peak Expiratory Flow [address] [facility] Desensitization Injection, Supply Multiple Allerg. Extracts Desensitization Injection, Supply Multiple Allerg. Extracts 2009 ISSA CAMPOVERDE Three (3) injections SQ -- 0.35 cc EA RED vial DoD Desensitization Injection, Supply Multiple Allerg. Extracts Desensitization Injection, Supply Multiple Allerg. Extracts [id number] HOLLI LOPEZ N [facility] Spirometry Peak Expiratory Flow Spirometry Peak Expiratory Flow [address] [facility] Desensitization Injection, Supply Multiple Allerg. Extracts Desensitization Injection, Supply Multiple Allerg. Extracts [address] [facility] Spirometry Peak Expiratory Flow Spirometry Peak Expiratory Flow [address] [facility] Desensitization Injection, Supply Multiple Allerg. Extracts Desensitization Injection, Supply Multiple Allerg. Extracts [id number] HOLLI LOPEZ N [facility] Spirometry Peak Expiratory Flow Spirometry Peak Expiratory Flow 0[address]10 [address] [facility] Spirometry Peak Expiratory Flow Spirometry Peak Expiratory Flow 44714 2009 HANSEN, IRAIS D DoD Desensitization Injection, Supply Multiple Allerg. Extracts Desensitization Injection, Supply Multiple Allerg. Extracts [id number] HANSEN, IRAIS D DoD Desensitization Injection, Supply Multiple Allerg. Extracts Desensitization Injection, Supply Multiple Allerg. Extracts 20283 2009 VIDA OLIVAS Pt. education provided about /s/sx adverse reactions. Pt. verbalized undrstanding. [facility] Spirometry Peak Expiratory Flow Spirometry Peak Expiratory Flow 02320 2009 ISSA CAMPOVERDE DoD Desensitization Injection, Supply Multiple Allerg. Extracts Desensitization Injection, Supply Multiple Allerg. Extracts 93812 2009 ISSA CAMPOVERDE Three (3) injections administered SQ -- 0.30 cc RED vial RT arm; 0.30 cc RED vial DUKE arm; 0.30 cc RED vial LL arm. DoD Desensitization Injection, Supply Multiple Allerg. Extracts Desensitization Injection, Supply Multiple Allerg. Extracts 38450 2009 VIDA OLIVAS Pt. education provided about s/sx adverse reactions. Pt. verbalized understanding. DoD Spirometry Peak Expiratory Flow Spirometry Peak Expiratory Flow 62001 2009 VIDA OLIVAS DoD Desensitization Injection, Supply Multiple Allerg. Extracts Desensitization Injection, Supply Multiple Allerg. Extracts [address] [facility] Spirometry Peak Expiratory Flow Spirometry Peak Expiratory Flow 50830 2009 HOLLI LOPEZ DoD Desensitization Injection, Supply Multiple Allerg. Extracts Desensitization Injection, Supply Multiple Allerg. Extracts 45072 2009 VIDA OLIVAS Pt. education provided about s/sx adverse reactions. Pt. verbalized understanding. [facility] Spirometry Peak Expiratory Flow Spirometry Peak Expiratory Flow 50592 2009 IRAIS HANSEN DoD Desensitization Injection, Supply Multiple Allerg. Extracts Desensitization Injection, Supply Multiple Allerg. Extracts 13851 2009 IRAIS HANSEN received 3 allergen injections DoD Pulse Oximetry Pulse Oximetry [address] [facility] Spirometry Peak Expiratory Flow Spirometry Peak Expiratory Flow 40770 2009 IRAIS HANSEN DoD Desensitization Injection, Supply Multiple Allerg. Extracts Desensitization Injection, Supply Multiple Allerg. Extracts 27568 2009 IRAIS HANSEN received 3 allergen injections DoD Desensitization Injection, Supply Multiple Allerg. Extracts Desensitization Injection, Supply Multiple Allerg. Extracts 51091 2008 IRAIS HANSEN received 3 allergen injections DoD Pulse Oximetry Pulse Oximetry [address] [facility] Spirometry Peak Expiratory Flow Spirometry Peak Expiratory Flow 65262 2008 DAHIANA POSADA DoD Desensitization Injection, Supply Multiple Allerg. Extracts Desensitization Injection, Supply Multiple Allerg. Extracts 62292 2008 DAHIANA POSADA DoD Desensitization Injection, Supply Multiple Allerg. Extracts Desensitization Injection, Supply Multiple Allerg. Extracts 80561 2008 VIDA OLIVAS Pt. education provided regarding s/sx adverse reactions. Pt. verbalized understanding. [facility] Spirometry Peak Expiratory Flow Spirometry Peak Expiratory Flow [address] [facility] Physician Supervised Injection Subcutaneous Physician Supervised Injection Subcutaneous [address] [facility] Spirometry Peak Expiratory Flow Spirometry Peak Expiratory Flow [address] [facility] Desensitization Injection, Supply Multiple Allerg. Extracts Desensitization Injection, Supply Multiple Allerg. Extracts 36985 2008 NIRALI ISSA Forrester Three (3) Injections DoD Desensitization Injection, Supply Multiple Allerg. Extracts Desensitization Injection, Supply Multiple Allerg. Extracts 39805 2008 [address]AMP[address]ISSA THREE (3) INJECTIONS [facility] Spirometry Peak Expiratory Flow Spirometry Peak Expiratory Flow 55507 [address] [facility] Spirometry Peak Expiratory Flow Spirometry Peak Expiratory Flow [address] [facility] Desensitization Injection, Supply Multiple Allerg. Extracts Desensitization Injection, Supply Multiple Allerg. Extracts [address] [facility] Occupational Therapy Re-Evaluation Occupational Therapy Re-Evaluation [address] [facility] A isted Exercises For ROM Assisted Exercises For ROM [address] [facility] Modalities Whirlpool Treatment Modalities Whirlpool Treatment [address] [facility] A isted Exercises For ROM Assisted Exercises For ROM [address] [facility] Modalities Whirlpool Treatment Modalities Whirlpool Treatment [address] [facility] Patient Training And Self-Care Skills Patient Training And Self-Care Skills [address] [facility] Occupational Therapy Evaluation Occupational Therapy Evaluation [address] [facility] Spirometry Peak Expiratory Flow Spirometry Peak Expiratory Flow [address] [facility] No data available for this section Ambulato ry Pharmacy Social History Combined list of available smoking, tobacco, and other social history from [facility] facilities. Social History Type Response Date Comment Sourc e This section is an empty social history section. DoD Assessment and Plan Combined list of future care activities from [facility] and [facility] facilities (e.g., assessment and plan notes, appointments, orders, and referrals). Additional future care activities may be listed in the Plan of Care section. Result Assessment and Plan Date Source Assessment and Plan No data available for this section 04/14/2024 Ambulatory Pharmacy Functional Status Combined list of recent functional and cognitive assessments recorded at [facility] Functional [place] Measurement (FIM) Scale: 1 = Total Assistance (Subject = 0% +), 2 = Maximal Assistance (Subject = 25% +), 3 = Moderate Assistance (Subject = 50% +), 4 = Minimal Assistance (Subject = 75% +), 5 = Supervision, 6 = Modified [place] (Device), 7 = Complete [place] (Timely, Safely). Assessment Date/Time Source Assessment Type Assessment Skill Assessment Score Assessment Details No data available for this section
--- OUTSIDE RECORDS SUMMARY | 2024-04-14 06:27 | XMS_ITS | Continuity of Care Document ---
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 #81/ DAHIANA Rob 06/22 Released w/o Limitations [facility] [place]) [facility] [place] [facility] TELE CONSULT [id number] Notes Entered by: Arcenio SEAY 24 Jun 2011 1312 ------- ------- ------- ------- -- Refills on symbico rt, albuter ol, and singula SWATHI Bustamante 06/23 Referred for Appointment [facility] [place]) [facility] [place] [facility] [id number] Notes Entered by: LON YN 03 Jul 2011 0804 ------- ------- ------- ------- -- Allergy Injecti ons #38 / DAHIANA Woodall 07/02 Released w/o Limitations [facility] [place]) [facility] [place] [facility] [id number] Notes Entered by: LON NY 10 Jul 2011 0805 ------- ------- ------- ------- -- Allergy Injecti ons #18, KATY Whitt 07/09 Released w/o Limitations [facility] [place]) [facility] [place] [facility] TELE CONSULT [id number] Notes Entered by: Arcenio SEAY 13 Jul 2011 0955 ------- ------- ------- ------- -- Order for epi-pen SWATHI SEAY 07/12 Referred for Appointment [facility] [place]) [facility] [place] [facility] [id number] Notes Entered by: LON NY 17 Jul 2011 0804 ------- ------- ------- ------- -- Allergy Injecti ons#80 KATY VASQUEZ W 07/16 Released w/o Limitations [facility] [place]) [facility] [place] [facility] [id number] Notes Entered by: LON NY 23 Jul 2011 1325 ------- ------- ------- ------- -- Allergy Injecti ons #32, Lovely KATY VASQUEZ W 07/22 Released w/o Limitations [facility] [place] [place] [place] [facility]) [place] [id number] Allergy PEDRO KATY W 07/23 Released w/o Limitations [facility] [place]) [facility] [place] [id number] Notes Entered by: LON NY 31 Jul 2011 0803 ------- ------- ------- ------- -- Allergy Injecti ons #58 KATY VASQUEZ W 07/30 Released w/o Limitations [facility] [place]) [facility] [place] [facility] [id number] Notes Entered by: LON NY 28 Aug 2011 1327 ------- ------- ------- ------- -- Allergy Injecti ons# F65 LOESEVITZ, KATY W 08/27 Released w/o Limitations [facility] [place] [facility] [place] [id number] Notes Entered by: BRIANNA BENÍTEZ 30 Sep 2011 0932 ------- ------- ------- ------- -- Allergy Injecti on # 04 (Lovely please) PELON PEREZ 09/29 Released w/o Limitations [facility] [place] [facility] [place] [id number] F/U LOESEVITZ, KATY W 10/20 Released w/o Limitations [facility] [place] [facility] [place] [id number] follow up LOESEDAMARISTZ, KATY W 12/01 Released w/o Limitations [facility] [place] [facility] [place] [id number] f/u LOESEVITZ, KATY W 12/20 Released w/o Limitations [facility] [place] [facility] [place] [id number] Notes Entered by: IRAIS HANSEN 24 Dec 2011 1403 ------- ------- ------- ------- -- allergy shot # 99 pft IRAIS HANSEN 12/23 Released w/o Limitations [facility] [place] [facility] [place] [id number] Allergy Injecti on #71 LOESEVITZ, KATY W 02/02 Released w/o Limitations [facility] [place] [facility] [place] [id number] F/U LOESEVITZ, KATY W 02/16 Released w/o Limitations [facility] [place] [facility] [place] [id number] F/U KATY VASQUEZ W 03/10 Released w/o Limitations [facility] [place] [place] [id number] Notes Entered by: BRIANNA BENÍTEZ 10 Mar 2012 1101 ------- ------- ------- ------- -- flu/pnu emo SHAKIR VICTORIA F 03/10 Released w/o Limitations [facility] [place] [place] [id number] Notes Entered by: Arcenio SEAY 16 Mar 2012 1438 ------- ------- ------- ------- -- Allergy shot # 34 KATY VASQUEZ W 03/16 Released w/o Limitations [facility] [place] [place] TELE CONSULT [id number] Notes Entered by: GENO AVALOS W 01 Apr 2012 0925 ------- ------- ------- ------- -- Needs correct pulmico rt dose KATY VASQUEZ W 04/01 [facility] [place] [place] [id number] Notes Entered by: Arcenio SEAY 21 Apr 2012 1615 ------- ------- ------- ------- -- allergy shot #79 PELON PEREZ 04/21 Released w/o Limitations [facility] [place] [place] [id number] Notes Entered by: BRIANNA BENÍTEZ 19 May 2012 1615 ------- ------- ------- ------- -- Allergy Injecti on # 42 PELON PEREZ 05/19 Released w/o Limitations [facility] [place] [place] [facility] [id number] Notes Entered by: BRIANNA BENÍTEZ 07 Jul 2012 1622 ------- ------- ------- ------- -- Allergy Injecti on # 17 PELON PEREZ 07/07 Released w/o Limitations [facility] [place] [facility] [place] [id number] Notes Entered by: BRIANNA BENÍTEZ 12 Jul 2012 1632 ------- ------- ------- ------- -- Allergy Injecti on # 27 PELON PEREZ Sukhdeep 07/12 Released w/o Limitations [facility] [place] [place] [id number] Notes Entered by: BRIANNA BENÍTEZ 19 Jul 2012 1609 ------- ------- ------- ------- -- Allergy Injecti on # 06 PELON PEREZ Sukhdeep 07/19 Released w/o Limitations [facility] [place] [facility] [place] [facility] [id number] Notes Entered by: BRIANNA BENÍTEZ 26 Jul 2012 1449 ------- ------- ------- ------- -- Allergy Injecti on # 60 PELON PEREZ 07/26 Released w/o Limitations [facility] [place] [facility] [place] [id number] Notes Entered by: Arcenio SEAY 28 Jul 2012 1613 ------- ------- ------- ------- -- Refills on singula ir, clariti n, symbico rt, and nasonex SWATHI SEAY 07/28 [facility] [place] [facility] [place] [id number] Notes Entered by: BRIANNA BENÍTEZ 04 Aug 2012 1617 ------- ------- ------- ------- -- Allergy Injecti on # 02 JOY PATTERSON 08/04 Released w/o Limitations [facility] [place] [facility] [place] [id number] Notes Entered by: BRIANNA BENÍTEZ 11 Aug 2012 1620 ------- ------- ------- ------- -- Allergy Injecti on # 61 PELON PEREZ 08/11 Released w/o Limitations [facility] [place] [facility] [place] [id number] Notes Entered by: Arcenio SEAY 20 Sep 2012 1519 ------- ------- ------- ------- -- allergy shot #55 PELON PEREZ 09/20 Released w/o Limitations [facility] [place] [facility] [place] [id number] Notes Entered by: BRIANNA BENÍTEZ 24 Oct 2012 0847 ------- ------- ------- ------- -- Allergy Injecti on # 89 WARREN PHIPPS 10/24 Released w/o Limitations [facility] [place] [facility] [place] [id number] Notes Entered by: Arcenio SEAY 25 Oct 2012 0812 ------- ------- ------- ------- -- Refills on epi-pen and symbico rt SWATHI SEAY 10/25 [facility] [place] [facility] [place] [id number] Notes Entered by: BRIANNA BENÍTEZ 22 Nov 2012 1605 ------- ------- ------- ------- -- Allergy Injecti on # 73 BRANDI ANA LAURA R 11/22 Released w/o Limitations [facility] [place] [facility] [place] [id number] Notes Entered by: BRIANNA BENÍTEZ 27 Dec 2012 1322 ------- ------- ------- ------- -- Allergy Injecti on # 48 BRANDIANA LAURA 12/27 Released w/o Limitations [facility] [place] [facility] [place] [id number] Notes Entered by: IRAIS HANSEN 26 Jan 2013 1608 ------- ------- ------- ------- -- Allergy Inj.#65 KAITLYN BARTLETT 01/26 Released w/o Limitations [facility] [place] [facility] [place] [id number] Notes Entered by: BRIANNA BENÍTEZ 08 Feb 2013 1450 ------- ------- ------- ------- -- Refills : nasonex /Xopene x/kelsey tin/sin WARREN Ceballos 02/08 [facility] [place] [facility] [place] [id number] Notes Entered by: BRIANNA BENÍTEZ 08 Feb 2013 1451 ------- ------- ------- ------- -- LIANA Cedeno 02/08 [place] Limitations [facility] [place] [facility] [place] [id number] Notes Entered by: ELDER JACK 30 Mar 2013 1452 ------- ------- ------- ------- -- allergy 16 PRICE LION 03/30 Released w/o Limitations [facility] [place] [facility] [place] [id number] Notes Entered by: BRIANNA BENÍTEZ 06 Apr 2013 1553 ------- ------- ------- ------- -- Allergy Injecti on # 28 PRICE LION 04/06 Released w/o Limitations [facility] [place] [facility] [place] [id number] Notes Entered by: BRIANNA BENÍTEZ 13 Apr 2013 1521 ------- ------- ------- ------- -- Allergy Injecti on # 28 PRICE LION 04/13 Released w/o Limitations [facility] [place] [facility] [place] [id number] Notes Entered by: BRIANNA BENÍTEZ 20 Apr 2013 1557 ------- ------- ------- ------- -- Allergy injecti on # 58 IRAIS HANSEN 04/20 Released w/o Limitations [facility] [place] [facility] [place] [id number] Notes Entered by: BRIANNA BENÍTEZ 18 May 2013 1619 ------- ------- ------- ------- -- Allergy Injecti on # 16 WARREN PHIPPS 05/18 Released w/o Limitations [facility] [place] [facility] [place]) [place] [id number] F/U LOESEVITZ, KATY W 05/31 Released w/o Limitations [facility] [place] [facility] [place] [id number] Notes Entered by: IRAIS HANSEN 06 Jun 2013 1600 ------- ------- ------- ------- -- Allergy Inj. # 07 PRICE LION 06/06 Released w/o Limitations [facility] [place] [facility] [place]) [place] [id number] F/U - reskin testing LOESEVITZ, KATY W 06/14 Released w/o Limitations [facility] [place] [facility] [place] [id number] Notes Entered by: ELDER JACK 06 Jul 2013 1607 ------- ------- ------- ------- -- Allergy 12 ANA LAURA PAZ 07/06 Released w/o Limitations [facility] [place] [facility] [place] [id number] Notes Entered by: BRIANNA BENÍTEZ 25 Jul 2013 0913 ------- ------- ------- ------- -- Cluster #1 PRICE LION 07/25 Released w/o Limitations [facility] [place] [facility] [place] [id number] Notes Entered by: BRIANNA BENÍTEZ 01 Aug 2013 0830 ------- ------- ------- ------- -- Cluster #2 IRAIS HANSEN 08/01 Released w/o Limitations [facility] [place] [facility] [place] [id number] Notes Entered by: BRIANNA BENÍTEZ 01 Aug 2013 0832 ------- ------- ------- ------- -- Please refill the followi ng: symbaco rt/naso nex WARREN PHIPPS O 08/01 [facility] [place] [facility] [place] [id number] Notes Entered by: BRIANNA BENÍTEZ 10 Aug 2013 1337 ------- ------- ------- ------- -- Allergy Injecti on # 01 PRICE LION 08/10 Released w/o Limitations [facility] [place] [facility] [place] [id number] Notes Entered by: LEDER JACK 17 Aug 2013 1622 ------- ------- ------- ------- -- Allergy 28 LIANA CALLEJAS 08/17 Released w/o Limitations [facility] [place] [facility] [place] [id number] Notes Entered by: BRIANNA BENÍTEZ 22 Aug 2013 1611 ------- ------- ------- ------- -- Allergy Injecti on # 03 ANA LARUA PAZ 08/22 Released w/o Limitations [facility] [place] [facility] [place] [id number] Notes Entered by: PEDRO PAZ 29 Aug 2013 1541 ------- ------- ------- ------- -- Allergy # 22 PRICE LION 08/29 Released w/o Limitations [facility] [place] [facility] [place] [id number] Notes Entered by: IRAIS HANSEN 01 Sep 2013 0850 ------- ------- ------- ------- -- Allergy Inj. #68 AMISHA PRICE 09/01 Released w/o Limitations [facility] [place] [facility] [place] [id number] Notes Entered by: BRIANNA BENÍTEZ 04 Sep 2013 1456 ------- ------- ------- ------- -- Allergy Injecft ion # 07 AMISHAPRICE 09/04 Released w/o Limitations [facility] [place] [facility] [place] [id number] Notes Entered by: BRIANNA BENÍTEZ 12 Sep 2013 1501 ------- ------- ------- ------- -- Allergy Injecti on # 16 ANA LAURA PAZ 09/12 Released w/o Limitations [facility] [place] [facility] [place] [id number] Notes Entered by: BRIANNA BENÍTEZ 15 Sep 2013 0827 ------- ------- ------- ------- -- Allergy Injecti on # 44 ANA LAURA PAZ 09/15 Released w/o Limitations [facility] [place] [facility] [place] [id number] Notes Entered by: BRIANNA BENÍTEZ 18 Sep 2013 0840 ------- ------- ------- ------- -- Allergy Injecti on # 82 LIONPRICE 09/18 Released w/o Limitations [facility] [place] [facility] [place] [id number] Notes Entered by: BRIANNA BENÍTEZ 20 Sep 2013 1017 ------- ------- ------- ------- -- Allergy Injecti on # 31 ANA LAURA PAZ 09/20 Released w/o Limitations [facility] [place] [facility] [place] [id number] Notes Entered by: ELDER JACK 25 Sep 2013 1334 ------- ------- ------- ------- -- Allergy 83 IRAIS HANSEN 09/25 Released w/o Limitations [facility] [place] [facility] [place] [id number] Notes Entered by: JOSEFINA DECKER 27 Sep 2013 0912 ------- ------- ------- ------- -- allergy inj #18 PRICE LION 09/27 Released w/o Limitations [facility] [place] [facility] [place] [id number] Notes Entered by: BRIANNA BENÍTEZ 29 Sep 2013 0921 ------- ------- ------- ------- -- Allergy Injecti on # 61 IRAIS HANSEN 09/29 Released w/o Limitations [facility] [place] [facility] [place] [id number] Notes Entered by: BRIANNA BENÍTEZ 04 Oct 2013 0900 ------- ------- ------- ------- -- Allergy Injecti on # 18 PRICE LION 10/04 Released w/o Limitations [facility] [place] [facility] [place] [id number] Notes Entered by: BRIANNA BENÍTEZ 06 Oct 2013 1026 ------- ------- ------- ------- -- Allergy Injecti on # 61 PRICE LION 10/06 Released w/o Limitations [facility] [place] [facility] [place] [id number] Notes Entered by: BRIANNA BENÍTEZ 09 Oct 2013 0907 ------- ------- ------- ------- -- Allergy Injecti on # 77 HANSENIRAIS HURLEY [place] 10/09 Released w/o Limitations [facility] [place] [facility] [place] [id number] Notes Entered by: JOSEFINA DECKER 17 Oct 2013 1544 ------- ------- ------- ------- -- allergy Injecti on #05 ANA LAURA PAZ 10/17 Released w/o Limitations [facility] [place] [facility] [place] [id number] Notes Entered by: JOSEFINA DECKER 14 Nov 2013 1630 ------- ------- ------- ------- -- ALLERGY INJECTI ON # 62 ELDER JACK 11/14 Released w/o Limitations [facility] [place] [facility] [place] [id number] asthma/ several attacks within last 2 days COMFORT HOOPER 11/28 Released w/o Limitations [facility] [place] [facility] [place] [address] [place] [address]) OUTPATIENT [id number] f/u worse COMFORT HOOPER 12/07 Released w/o Limitations [facility] [place] [place] [facility] [place] [id number] Notes Entered by: ARTIE DREW 19 Dec 2013 1618 ------- ------- ------- ------- -- Allergy Injecti on #G34 PRICE LION 12/19 Released w/o Limitations [facility] [place] [facility] [place] [id number] Notes Entered by: ELDER JACK 11 Jan 2014 1649 ------- ------- ------- ------- -- Allergy 38 FELIPE FORBES 01/11 Released w/o Limitations [facility] [place] [facility] [place] [id number] Notes Entered by: JOSEFINA DECKER 13 Feb 2014 1636 ------- ------- ------- ------- -- # 71 Allergy Injecti on ELDER JACK 02/13 Released w/o Limitations [facility] [place] [facility] [place] [id number] Notes Entered by: BRIANNA BENÍTEZ 20 Mar 2014 1459 ------- ------- ------- ------- -- allergy inj. #88 IRAIS HANSEN 03/20 Released w/o Limitations [facility] [place] [facility] [place]) [place] [id number] F/U WARREN PHIPPS 04/02 Released w/o Limitations [facility] [place] [facility] [place] [id number] Notes Entered by: PATIENCE BROWN 12 Apr 2014 1641 ------- ------- ------- ------- -- Allergy Injecti on # 82 ANA LAURA PAZ 04/12 Released w/o Limitations [facility] [place] [facility] [place] [id number] Notes Entered by: BRIANNA BENÍTEZ 01 May 2014 1636 ------- ------- ------- ------- -- Allergy injecti on # 49 BRANDI ANA LAURA R 05/01 Released w/o Limitations [facility] [place] [facility] [place] [id number] Notes Entered by: PATIENCE BROWN 15 May 2014 1650 ------- ------- ------- ------- -- Allergy injecti on # 98 BRANDI ANA LAURA R 05/15 Released w/o Limitations [facility] [place] [facility] [place]) [place] [id number] F/U KATY VASQUEZ W 05/21 Released w/o Limitations [facility] [place] [facility] [place] [id number] asthma DIEGODT, FRANCESCA J 06/15 Released w/o Limitations [facility] [place] [facility] [place] [id number] Notes Entered by: GENO AVALOS 15 Jun 2014 1201 ------- ------- ------- ------- -- asthma flare KATY VASQUEZ 06/15 Released w/o Limitations [facility] [place] [facility] [place] [id number] F/U from appt. KATY VASQUEZ W 06/27 Released w/o Limitations [facility] [place] [facility] [place] [id number] Notes Entered by: BRIANNA BENÍTEZ 23 Jul 2014 1318 ------- ------- ------- ------- -- Allergy Injecti on # 64 ANA LAURA PAZ 07/23 Released w/o Limitations [facility] [place] [facility] [place] [id number] Notes Entered by: GENO AVALOS W 26 Jul 2014 1254 ------- ------- ------- ------- -- lost voice, sinus headach e KATY VASQUEZ W 07/26 Sick at Home/Quarter s [facility] [place] [facility] [place] [id number] Notes Entered by: IRAIS HANSEN 22 Aug 2014 1116 ------- ------- ------- ------- -- Allergy Inj.#15 PRICE LION 08/22 Released w/o Limitations [facility] [place] [facility] [place] [id number] Notes Entered by: JOY PARKS 03 Oct 2014 1454 ------- ------- ------- ------- -- Allergy # 41 IRAIS HANSEN 10/03 Released w/o Limitations [facility] [place] [facility] [place] [id number] Notes Entered by: JOY PARKS 22 Oct 2014 1323 ------- ------- ------- ------- -- Allergy # 11 PRICE LION 10/22 Released w/o Limitations [facility] [place] [facility] [place]) [place] [id number] Allergy # 54 IRAIS HANESN 11/30 Released w/o Limitations [facility] [place] [facility] [place] [id number] Notes Entered by: BRIANNA BENÍTEZ 27 Dec 2014 1408 ------- ------- ------- ------- -- Allergy injecti on # 13 IRAIS HANSEN 12/27 Released w/o Limitations [facility] [place] [facility] [place]) OUTPATIENT [id number] sinus infecti on, cough with asthma CARSON FITCH 01/25 Released w/o Limitations [facility] [place] [facility] [place] [id number] Notes Entered by: BRIANNA BENÍTEZ 13 Feb 2015 0850 ------- ------- ------- ------- -- Allergy Injecti on # 01 PRICE LION 02/13 Released w/o Limitations [facility] [place] [place] [facility] TELE CONSULT [id number] Notes Entered by: BRIANNA BENÍTEZ 13 Feb 2015 0851 ------- ------- ------- ------- -- Please refill the followi ng: Symbaco rt (needs to be renewed thru [facility] ELDER Arambula 02/13 [facility] [place]) [facility] [place] TELE CONSULT [id number] Notes Entered by: ELDER JACK 13 Feb 2015 1007 ------- ------- ------- ------- -- Request ing Symbico rt refills thru [facility] ELDER JACK 02/13 [facility] [place] [facility] [place] [id number] Notes Entered by: BIRANNA BENÍTEZ 12 Mar 2015 1336 ------- ------- ------- ------- -- Allergy Injecti on # 79 IRAIS HANSEN 03/12 Released w/o Limitations [facility] [place] [facility] [place] [id number] Notes Entered by: ELDER JACK 19 Mar 2015 1506 ------- ------- ------- ------- -- Allergy 70 PRICE LION 03/19 Released w/o Limitations [facility] [place] [facility] [place] [id number] Notes Entered by: ELDER JACK 19 Mar 2015 1518 ------- ------- ------- ------- -- Flu Vaccine FELIPE FORBES 03/19 [place]ased w/o Limitations [facility] [place] [facility] [place] [id number] Notes Entered by: JENNIFER CALLEJAS 24 Apr 2015 0902 ------- ------- ------- ------- -- allergy injecti on FELIPE FORBES 04/24 Released w/o Limitations [facility] [place] [facility] [place] [id number] Notes Entered by: BRIANNA BENÍTEZ 30 Apr 2015 1320 ------- ------- ------- ------- -- Allergy Injecti on # 04 PRICE LION 04/30 Released w/o Limitations [facility] [place] [facility] [place] [id number] Notes Entered by: BRIANNA BENÍTEZ 29 May 2015 0828 ------- ------- ------- ------- -- Allergy Injecti on # 74 PRICE LION 05/28 Released w/o Limitations [facility] [place] [facility] [place] [id number] Notes Entered by: BRIANNA BENÍTEZ 03 Jun 2015 0902 ------- ------- ------- ------- -- Allergy Injecti on # 15 HANSENIRAIS HURLEY D 06/02 [place] w/o Limitations [facility] [place] [facility] [place] [id number] Notes Entered by: BRIANNA BENÍTEZ 03 Jun 2015 1044 ------- ------- ------- ------- -- Please refill the followi ng; WARREN Dunbar 06/02 [facility] [place] [facility] [place] [id number] Notes Entered by: BRIANNA BENÍTEZ 06 Jun 2015 1311 ------- ------- ------- ------- -- Allergy Injecti on # 88 LEIDY FELIPE D 06/05 [place]ased w[place] Limitations [facility] [place] [facility] [place] [id number] asthma with flu like symptom YISEL Adair 06/10 Released w/o Limitations [facility] [place] [facility] [place] [id number] Notes Entered by: BRIANNA BENÍTEZ 24 Jun 2015 1025 ------- ------- ------- ------- -- Allergy Injecti on # 44 LEIDY, FELIPE D 06/23 Released w/o Limitations [facility] [place] [facility] [place] [id number] Notes Entered by: BRIANNA BENÍTEZ 28 Jun 2015 1327 ------- ------- ------- ------- -- Allergy Injecti on # 31 IRAIS HANSEN D 06/27 [facility]ased w/o Limitations [facility] [place] [facility] [place] [id number] Notes Entered by: BRIANNA BENÍTEZ 24 Jul 2015 0845 ------- ------- ------- ------- -- Allergy Injecti on # 44 AMISHA PRICE 07/23 Released w/o Limitations [facility] [place] [facility] [place] [id number] Notes Entered by: BRIANNA BENÍTEZ 28 Aug 2015 1413 ------- ------- ------- ------- -- Allergy Injecti on # 81 IRAIS HANSEN D 08/27 [place] w[place]o Limitations [facility] [place] [facility] [place] [id number] Notes Entered by: BRIANNA BENÍTEZ 27 Sep 2015 1130 ------- ------- ------- ------- -- Allergy Injecti on # 50 IRAIS HANSEN D 09/26 [place] Limitations [facility] [place] [facility] [place] [id number] Notes Entered by: BRIANNA BENÍTEZ 23 Oct 2015 1427 ------- ------- ------- ------- -- Allergy Injecti on # 58 AMISHA PRICE 10/22 Released w/o Limitations [facility] [place] [facility] [place] [id number] Notes Entered by: BRIANNA EBNÍTEZ 27 Nov 2015 0832 ------- ------- ------- ------- -- Allergy Injecti on # 45 IRAIS HANSEN [place] 11/26 Rele[place] w[place]o Limitations [facility] [place] [facility] [place] [id number] Notes Entered by: BRIANNA BENÍTEZ 27 Nov 2015 0833 ------- ------- ------- ------- -- Please refill the followi ng: Nasonex /[place] rol inhalor BENI ARSHAD 11/26 [facility] [place] [facility] [place] [id number] F/U -reorde r allergy serum. KATY VASQUEZ 12/22 Released w/o Limitations [facility] [place] [facility] [place] [id number] Notes Entered by: FRED CORTES 28 Jan 2016 1503 ------- ------- ------- ------- -- ALLERGY SHOT 57 HANSEN, IRAIS [place] 01/27 Released w/o Limitations [facility] [place] [facility] [place] [id number] been sick/co ughing up stuff/c hest hurJANENE Walters 03/11 Released w/o Limitations [facility] [place] [place] [facility] [place] [place] TELE CONSULT [id number] Notes Entered by: CASSANDRA MARISCAL 11 Mar 2016 1620 ------- ------- ------- ------- -- JOSEFINA JUAREZ 03/11 [facility] [place] [place] [facility] [place] [id number] Notes Entered by: BRIANNA BENÍTEZ 19 Mar 2016 1400 ------- ------- ------- ------- -- Allergy Injecti on # 16 IRAIS HANSEN 03/19 Released w/o Limitations [facility] [place] [facility] [place] [id number] Notes Entered by: BRIANNA BENÍTEZ 24 Mar 2016 1411 ------- ------- ------- ------- -- Allergy Injecti on # 49 ANAIS VARELA 03/24 Released w/o Limitations [facility] [place] [facility] [place] [id number] Notes Entered by: BRIANNA BENÍTEZ 06 May 2016 1323 ------- ------- ------- ------- -- Allergy Injecti on # 43 GARY LIONA 05/06 Released w/o Limitations [facility] [place] [facility] [place] [id number] Notes Entered by: BRIANNA BENÍTEZ 03 Jun 2016 1414 ------- ------- ------- ------- -- Allergy Injecti on # 83 PRICE LION 06/03 Released w/o Limitations [facility] [place] [facility] [place] [id number] Notes Entered by: BRIANNA BENÍTEZ 23 Jun 2016 1358 ------- ------- ------- ------- -- Allergy Injecti on # 63 PRICE LION 06/23 Released w/o Limitations [facility] [place] [facility] [place] [id number] asthma problem s ANDERS EASTON 07/29 Released w/o Limitations [facility] [place] [facility] [place] [id number] Notes Entered by: BRIANNA BENÍTEZ 12 Aug 2016 1007 ------- ------- ------- ------- -- Allergy Injecti on # 93 ELLENANAIS MAYER Usama 08/12 Released w/o Limitations [facility] [place] [place] [id number] Notes Entered by: BRIANNA BENÍTEZ 14 Sep 2016 1021 ------- ------- ------- ------- -- Allergy Injecti on # 72 FELIPE FORBES 09/14 [place]ased w/o Limitations [facility] [place] [facility] [place] [id number] Notes Entered by: ARNAV GRANADOS 23 Oct 2016 1411 ------- ------- ------- ------- -- allergy inj #10 IRAIS HANSEN 10/23 [place]ased w/o Limitations [facility] [place] [facility] [place] [id number] Notes Entered by: BRIANNA BENÍTEZ 26 Nov 2016 1351 ------- ------- ------- ------- -- Allergy Injecti on # 77 WARREN PHIPPS 11/26 Released w/o Limitations [facility] [place]) [facility] [place] OUTPATIENT [id number] Sinus infecti on/Asth DAMON Terry 12/23 [place]ased w/o Limitations [facility] [place] [place] [facility] [place] [id number] Notes Entered by: BRIANNA BENÍTEZ 23 Dec 2016 1005 ------- ------- ------- ------- -- Allergy walk-in # 49 WARREN PHIPPS O 12/23 Released w/o Limitations [facility] [place] [facility] [place] [id number] Notes Entered by: BRIANNA BENÍTEZ 26 Jan 2017 1427 ------- ------- ------- ------- -- Allergy walk - in # 79 WARREN PHIPPS O 01/26 Released w/o Limitations [facility] [place] [facility] [place] [id number] Notes Entered by: BRIANNA BENÍTEZ 26 Jan 2017 1439 ------- ------- ------- ------- -- Please refill the followi ng: Nasanex /Pro- r inhalor GENET BEE 01/26 [facility] [place] [facility] [place] [id number] Notes Entered by: BRIANNA BENÍTEZ 24 Feb 2017 1351 ------- ------- ------- ------- -- Allergy walk-in # 80 WARREN PHIPPS O 02/24 Released w/o Limitations [facility] [place] [facility] [place] [id number] sinus infecti on PATRICIO GUDINO 03/04 Released w/o Limitations [facility] [place] [facility] [place] [id number] Notes Entered by: BRIANNA BENÍTEZ 10 Mar 2017 0838 ------- ------- ------- ------- -- Allergy walk-in # 57 IRAIS HANSEN 03/10 Released w/o Limitations [facility] [place] [facility] [place] [id number] Notes Entered by: BRIANNA BENÍTEZ 19 Apr 2017 1346 ------- ------- ------- ------- -- Allergy walk-in # 38 WARREN PHIPPS O 04/19 [place]ased w[place]o Limitations [facility] [place]) [facility] [place] [id number] asthma complic atEMILIA Fitzgerald N 05/17 Immediate Referral [facility] [place] [facility] [place] [id number] Notes Entered by: BRIANNA BENÍTEZ 31 May 2017 1450 ------- ------- ------- ------- -- Allergy walk-in # 44 WARREN PHIPPS O 05/31 [place] Limitations [facility] [place] [facility] [place]) [place] [id number] F/U - from [address] [place] [address] /[facility] ER by WARREN Olivia 06/07 Released w/o Limitations [facility] [place] [facility] [place] [id number] Notes Entered by: ARNAV GRANADOS 24 Jun 2017 1416 ------- ------- ------- ------- -- allergy walk in #64 WARREN PHIPPS O 06/24 [place]ased w[place]o Limitations [facility] [place] [facility] [place] [id number] Notes Entered by: BRIANNA BENÍTEZ 20 Jul 2017 1511 ------- ------- ------- ------- -- Allergy walk-in # 34 WARREN PHIPPS O 07/20 Released w/o Limitations [facility] [place] [facility] [place] [id number] Notes Entered by: BRIANNA BENÍTEZ 11 Aug 2017 1518 ------- ------- ------- ------- -- Allergy walk-in # 87 WARREN PHIPPS 08/11 Released w/o Limitations [facility] [place] [facility] [place] [id number] Notes Entered by: BRIANNA BENÍTEZ 16 Sep 2017 1343 ------- ------- ------- ------- -- Allergy walk-in # 67 IRAIS HANSEN 09/16 Released w/o Limitations [facility] [place] [facility] [place] [id number] Notes Entered by: BRIANNA BENÍTEZ 14 Oct 2017 1344 ------- ------- ------- ------- -- Allergy walk-in # 65 WARREN PHIPPS 10/14 Released w/o Limitations [facility] [place] [facility] [place] [id number] Notes Entered by: BRIANNA BENÍTEZ 18 Nov 2017 1428 ------- ------- ------- ------- -- Allergy walk-in # 81 IRAIS HANSEN 11/18 Released w/o Limitations [facility] [place] [facility] [place] [id number] Notes Entered by: BRIANNA BENÍTEZ 15 Dec 2017 1114 ------- ------- ------- ------- -- Allergy walk-in # 16 WARREN PHIPPS 12/15 Released w/o Limitations [facility] [place] [facility] [place] [id number] poss cyst in right arm AYDEN ARANDA 01/19 [place]ased w[place]o Limitations [facility] [place] [facility] [place] [id number] Notes Entered by: BRIANNA BENÍTEZ 19 Jan 2018 1029 ------- ------- ------- ------- -- Allergy walk-in # 23 MOISEWARREN ELAM O 01/19 [place] w[place]o Limitations [facility] [place] [facility] [place] [place] TELE CONSULT [id number] Notes Entered by: FREDRICK ARANDA 19 Jan 2018 1303 ------- ------- ------- ------- -- notify patient of lab results and to recheck TSH and free T4 in 1 week. CONNER GUNN 01/19 [facility] [place] [place] [facility] [place] [place]PAT[place] [id number] follow up EMILIA WIGGINS N 01/24 [place]o Limitations [facility] [place] [facility] [place] [id number] Sebaceo us cyst DAHIANA GRIGSBY 01/27 [place] Limitations [facility] [place] [facility] [place]PAT[place] [id number] follow up for x-ray and labs EMILIA WIGGINS N 01/27 [place]ased w[place]o Limitations [facility] [place] [facility] [place]) [place] [id number] WOUND PACKED DAHIANA GRIGSBY 02/01 [place] w/o Limitations [facility] [place] [facility] [place] [id number] Notes Entered by: JER HUFFMAN 02 Feb 2018 1307 ------- ------- ------- ------- -- WALK IN FOR WOUND PACKING DAHIANA GRIGSBY 02/02 [place]ased w/o Limitations [facility] [place] [facility] [place] [id number] Notes Entered by: BRIANNA BENÍTEZ 14 Feb 2018 1347 ------- ------- ------- ------- -- Allergy walk-in # 78 WARREN PHIPPS O 02/14 Released w/o Limitations [facility] [place] [facility] [place] [place] TELE CONSULT [id number] Notes Entered by: FREDRICK ARANDA 15 Feb 2018 1116 ------- ------- ------- ------- -- Notify of normal Mammo REINALDO MCKEE 02/15 [facility] [place] [place] [facility] [place] [facility]) [place] [id number] WELL WOMAN WITH A PAP MILTON MONTESINOS 02/15 [place]ased w/o Limitations [facility] [place] [facility] [place] [place]LE [place] [id number] Notes Entered by: FREDRICK ARANDA 16 Feb 2018 1324 ------- ------- ------- ------- -- Please advise MAMMO normal JOSEFINA MARSHALL 02/16 [facility] [place] [place] [facility] [place] [facility]LE [place] [id number] Notes Entered by: MILTON MONTESINOS 02 Mar 2018 0823 ------- ------- ------- ------- -- pap letter EDA REED 03/02 [facility] [place] [facility] [place] [id number] Notes Entered by: BRIANNA BENÍTEZ 02 Mar 2018 1452 ------- ------- ------- ------- -- Allergy walk-in # 57 WARREN PHIPPS 03/02 Released w/o Limitations [facility] [place] [facility] [place] [place] TELE CONSULT [id number] Notes Entered by: EMILIA WIGGINS 03 Mar 2018 1306 ------- ------- ------- ------- -- thyroid lab results FRANCIA CONDON 03/03 [facility] [place] [place] [facility] [place] [id number] Notes Entered by: JENNIFER CALLEJAS 08 Mar 2018 1415 ------- ------- ------- ------- -- allergy walkin #45 IRAIS HANSEN 03/08 Released w/o Limitations [facility] [place] [facility] [place] [id number] Notes Entered by: BRIANNA BENÍTEZ 11 Mar 2018 1402 ------- ------- ------- ------- -- Allergy walk-in # 15 PRICE LION 03/11 Released w/o Limitations [facility] [place] [facility] [place] [place] OUTPATIENT [id number] results from lab work and xray for spine EMILIA WIGGINS 03/17 Released w/o Limitations [facility] [place] [place] [facility] [place] [id number] Notes Entered by: BRIANNA BENÍTEZ 15 Apr 2018 1118 ------- ------- ------- ------- -- see comment s: GENET BEE 04/15 [facility] [place] [facility] [place] [id number] Notes Entered by: BRIANNA BENÍTEZ 15 Apr 2018 1126 ------- ------- ------- ------- -- Allergy walk-in # 89 IRAIS HANSEN 04/15 Released w/o Limitations [facility] [place]) [facility] [place]) OUTPATIENT [id number] 3 transit ion appt AUSTENROSALIND EMILIA N 04/18 Released w/o Limitations [facility] [place]) [facility] [place]) OUTPATIENT [id number] 9 [facility] N 04/22 Immediate Referral [facility] [place] [facility] [place]) OUTPATIENT [id number] ER follow up EMILIA WIGGINS N 04/25 Released w/o Limitations [facility] [place] [facility] [place] [id number] Notes Entered by: BRIANNA BENÍTEZ 10 Jun 2018 1101 ------- ------- ------- ------- -- Allergy walk-in # 73 WM MARIE D 06/10 Released w/o Limitations [facility] [place] [facility] [place] [id number] F/U - reorder allergy serum WARREN PHIPPS O 06/15 Released w/o Limitations [facility] [place] [facility] [place] [id number] Notes Entered by: BRIANNA BENÍTEZ 22 Jul 2018 1025 ------- ------- ------- ------- -- Allergy walk-in # 03 BENI ROMERO 07/22 Released w/o Limitations [facility] [place] [facility] [place] [id number] Notes Entered by: WM GARDNER 01 Sep 2018 1351 ------- ------- ------- ------- -- allergy walk in #88 WARREN PHIPPS 09/01 Released w/o Limitations [facility] [place] [facility] [place] [id number] Notes Entered by: JERAD BAUMANN SE 28 Oct 2018 1349 ------- ------- ------- ------- -- ALLERGY SHOT # 45 IRAIS HANSEN 10/28 Released w/o Limitations [facility] [place] [facility] [place] [id number] Notes Entered by: JERAD BAUMANN SE 04 Nov 2018 0955 ------- ------- ------- ------- -- ALLERGY SHOT # 58 WARREN PHIPPS 11/04 Released w/o Limitations [facility] [place] [facility] [place] [id number] Notes Entered by: JERAD BAUMANN SE 09 Dec 2018 1103 ------- ------- ------- ------- -- ALLERGY SHOT # 64 WARREN PHIPPS 12/09 Released w/o Limitations [facility] [place] [facility] [place] [id number] Notes Entered by: JERAD BAUMANN SE 18 Jan 2019 1052 ------- ------- ------- ------- -- ALLERGY SHOT # 23 WARREN PHIPPS O 01/18 Released w/o Limitations [facility] [place] [facility] [place]) OUTPATIENT [id number] PFT TEST WARREN PHIPPS O 01/19 Released w/o Limitations [facility] [place] [facility] [place] [id number] Notes Entered by: JERAD BAUMANN SE R 02 Mar 2019 1414 ------- ------- ------- ------- -- ALLERGY SHOT # 78 WARREN PHIPPS O 03/02 Released w/o Limitations [facility] [place] [facility] [place] OUTPATIENT [id number] Notes Entered by: JERAD BAUMANN SE R 31 Mar 2019 1115 ------- ------- ------- ------- -- ALLERGY INJ # 11 WARREN PHIPPS O 03/31 Released w/o Limitations [facility] [place] [facility] [place] [id number] 7 Notes Entered by: LEXI HOUSTON 12 May 2019 1441 ------- ------- ------- ------- -- allergy shot S446 NAHUM PHIPPSNE O 05/12 Released w/o Limitations [facility] [place] [facility] [place] [id number] Notes Entered by: Lilliana GARCIA 15 Jun 2019 1313 ------- ------- ------- ------- -- ALLERGY SHOT/ [id number] IRAIS HANSEN 06/14 Released w/o Limitations [facility] [place]([facility]) [facility] [place] OUTPATIENT [id number] Notes Entered by: Lilliana GARCIA 25 Aug 2019 1009 ------- ------- ------- ------- -- ALLERGY SHOT/ [id number] LIONGARY REYNAA 08/24 Released w/o Limitations [facility] [place]([facility]) [facility] [place] OUTPATIENT [id number] Notes Entered by: Lilliana GARCIA 30 Aug 2019 0917 ------- ------- ------- ------- -- ALLERGY SHOT/ [id number] WARREN PHIPPS 08/29 Released w/o Limitations [facility] [place] [place] [place]) OUTPATIENT [id number] 3 refills documen tation WARREN PHIPPS 09/11 Released w/o Limitations [facility] [place]([facility]) Procedures Combined list of: 1) Procedures from Department of Veterans Affairs facilities going back up to thelast 18 months, not all VA non-surgical procedures are included; 2) All procedures from the Department of Defense facilities. Procedure Procedure Type Code Date Perfomer Comments Sourc e No data available for this section [facility] WAIVER SERVICES; NOT OTHERWISE SPECIFIED (NOS) 2019 [...] EXTRACTS; 2 OR MORE INJECTIONS 2018 [facility] BRONCHODILATION RESPONSIVENESS, [place] [address], PRE- AND POST-BRONCHODILATOR ADMINISTRATION 2018 DoD PROFESSIONAL [...] EXTRACTS; 2 OR MORE INJECTIONS 2018 [facility] VITAL CAPACITY, TOTAL (SEPARATE PROCEDURE) 2018 DoD [...] EXTRACTS; 2 OR MORE INJECTIONS 2017 [facility] TREATMENT OF SUPERFICIAL WOUND DEHISCENCE; WITH PACKING 2017 [facility] TREATMENT OF SUPERFICIAL WOUND DEHISCENCE; WITH PACKING 2017 [facility] NEGATIVE SCREEN FOR DEPRESSIVE SYMPTOMS CATEGORIZED BY USING A STANDARDIZED DEPRESSION SCREENING/ASSESSMENT TOOL (MDD) 2017 [facility] NEGATIVE SCREEN FOR DEPRESSIVE SYMPTOMS CATEGORIZED BY USING A STANDARDIZED DEPRESSION SCREENING/ASSESSMENT TOOL (MDD) 2017 [facility] INCISION AND DRAINAGE OF ABSCESS (EG, CARBUNCLE, SUPPURATIVE HIDRADENITIS, CUTANEOUS OR SUBCUTANEOUS ABSCESS, CYST, FURUNCLE, OR PARONYCHIA); SIMPLE OR SINGLE 2017 [facility] PROFESSIONAL SERVICES FOR ALLERGEN IMMUNOTHERAPY NOT INCLUDING PROVISION OF ALLERGENIC EXTRACTS; 2 OR MORE INJECTIONS 2017 [facility] NO SIGNIFICANT DEPRESSIVE SYMPTOMS CATEGORIZED BY USING [...] ANTIGENS (SPECIFY NUMBER OF DOSES) 2017 [facility] VITAL CAPACITY, TOTAL (SEPARATE PROCEDURE) 2017 Do[facility] PROFESSIONAL SERVICES FOR ALLERGEN IMMUNOTHERAPY NOT INCLUDING PROVISION OF ALLERGENIC EXTRACTS; 2 OR MORE INJECTIONS 2017 [facility] PROFESSIONAL SERVICES FOR ALLERGEN IMMUNOTHERAPY NOT INCLUDING PROVISION OF ALLERGENIC EXTRACTS; 2 OR MORE INJECTIONS 2016 [facility] NEGATIVE SCREEN FOR DEPRESSIVE SYMPTOMS CATEGORIZED BY [...] EXTRACTS; 2 OR MORE INJECTIONS 2016 [facility] NEGATIVE SCREEN FOR DEPRESSIVE SYMPTOMS CATEGORIZED [...] FOR OXYGEN SATURATION; SINGLE DETERMINATION 2015 [facility] INFLUENZA VIRUS VACCINE, TRIVALENT (IIV3), SPLIT VIRUS, [...] EXTRACTS; 2 OR MORE INJECTIONS 2015 [facility] VITAL CAPACITY, TOTAL (SEPARATE PROCEDURE) 2015 DoD VITAL CAPACITY, TOTAL (SEPARATE PROCEDURE) 2015 DoD [...] EXTRACTS; 2 OR MORE INJECTIONS 2014 [facility] VITAL CAPACITY, TOTAL (SEPARATE PROCEDURE) 2014 [facility] BRONCHODILATION RESPONSIVENESS, [place] [address], PRE- AND POST-BRONCHODILATOR ADMINISTRATION 2014 DoD PROFESSIONAL [...] ACETONIDE, NOT OTHERWISE SPECIFIED, 10 MG 2013 [facility] PRESSURIZED/NONPRESS INHAL TREAT FOR AC AIRWAY [...] EXTRACTS; 2 OR MORE INJECTIONS 2013 [facility] VITAL CAPACITY, TOTAL (SEPARATE PROCEDURE) 2013 [facility] VITAL CAPACITY, TOTAL (SEPARATE PROCEDURE) 2013 [facility] PERCUTANEOUS TESTS (SCRATCH, PUNCTURE, PRICK) WITH ALLERGENIC EXTRACTS, IMMEDIATE TYPE REACTION, INCLUDING TEST INTERPRETATION AND REPORT, SPECIFY NUMBER OF TESTS 2013 [facility] PROFESSIONAL SERVICES FOR ALLERGEN IMMUNOTHERAPY NOT INCLUDING PROVISION OF ALLERGENIC EXTRACTS; 2 OR MORE INJECTIONS 2013 [facility] PROFESSIONAL SERVICES FOR ALLERGEN IMMUNOTHERAPY NOT INCLUDING PROVISION OF ALLERGENIC EXTRACTS; 2 OR MORE INJECTIONS 2013 [facility] DEMONSTRATION AND/OR EVALUATION OF PATIENT UTILIZATION OF [...] EXTRACTS; 2 OR MORE INJECTIONS 2013 [facility] INFLUENZA VIRUS VACCINE, QUADRIVALENT (IIV4), SPLIT VIRUS, [...] EXTRACTS; 2 OR MORE INJECTIONS 2012 [facility] VITAL CAPACITY, TOTAL (SEPARATE PROCEDURE) 2012 DoD [...] IMMUNOTHER IN THE OFFICE/INSTITUTION OF THE PRESCRIBING PHYSICIAN/OT QUALIFIED HEALTH TOWER HAND,INCLUDI NG PROVISION OF ALLERGENIC EXTRACT;2/MORE INJECTIONS 2012 [facility] PROFESSIONAL SER FOR ALLERGEN IMMUNOTHER IN THE OFFICE/INSTITUTION OF THE PRESCRIBING PHYSICIAN/OT QUALIFIED HEALTH TOWER HAND,INCLUDI NG PROVISION OF ALLERGENIC EXTRACT;2/MORE INJECTIONS 2012 [facility] PROFESSIONAL SER FOR ALLERGEN IMMUNOTHER IN THE OFFICE/INSTITUTION OF THE PRESCRIBING PHYSICIAN/OTH QUALIFIED HEALTH TOWER HAND,INCLUDI NG PROVISION OF ALLERGENIC EXTRACT;2/MORE INJECTIONS 2012 Do[facility] PROFESSIONAL SER FOR ALLERGEN IMMUNOTHER IN THE OFFICE/INSTITUTION OF THE PRESCRIBING PHYSICIAN/OTH QUALIFIED HEALTH TOWER HAND,INCLUDI NG PROVISION OF ALLERGENIC EXTRACT;2/MORE INJECTIONS 2012 Do[facility] VITAL CAPACITY, TOTAL (SEPARATE PROCEDURE) 2012 DoD PROFESSIONAL SER FOR ALLERGEN IMMUNOTHER IN THE OFFICE/INSTITUTION OF THE PRESCRIBING PHYSICIAN/OTH QUALIFIED HEALTH TOWER HAND,INCLUDI NG PROVISION OF ALLERGENIC EXTRACT;2/MORE INJECTIONS 2011 [...] OFFICE/INSTITUTION OF THE PRESCRIBING PHYSICIAN/OTH QUALIFIED HEALTH TOWER HAND,INCLUDI NG PROVISION OF ALLERGENIC EXTRACT;2/MORE INJECTIONS 2011 DoD VITAL CAPACITY, TOTAL (SEPARATE PROCEDURE) 2011 DoD INJECTION, METHYLPREDNISOLONE SODIUM SUCCINATE, UP TO 125 MG 2011 DoD PROFESSIONAL SER FOR ALLERGEN IMMUNOTHER IN THE OFFICE/INSTITUTION OF THE PRESCRIBING PHYSICIAN/OTH QUALIFIED HEALTH TOWER HAND,INCLUDI NG PROVISION OF ALLERGENIC EXTRACT;2/MORE INJECTIONS 2011 DoD PROFESSIONAL SER FOR ALLERGEN IMMUNOTHER IN THE OFFICE/INSTITUTION OF THE PRESCRIBING PHYSICIAN/OTH QUALIFIED HEALTH TOWER HAND,INCLUDI NG PROVISION OF ALLERGENIC EXTRACT;2/MORE INJECTIONS 2011 DoD PROFESSIONAL SER FOR ALLERGEN IMMUNOTHER IN THE OFFICE/INSTITUTION OF THE PRESCRIBING PHYSICIAN/OTH QUALIFIED HEALTH TOWER HAND,INCLUDI NG PROVISION OF ALLERGENIC EXTRACT;2/MORE INJECTIONS 2011 Do[facility] PROFESSIONAL SER FOR ALLERGEN IMMUNOTHER IN THE OFFICE/INSTITUTION OF THE PRESCRIBING PHYSICIAN/OTH QUALIFIED HEALTH TOWER HAND,INCLUDI NG PROVISION OF ALLERGENIC EXTRACT;2/MORE INJECTIONS 2011 DoD PROFESSIONAL SER FOR ALLERGEN IMMUNOTHER IN THE OFFICE/INSTITUTION OF THE PRESCRIBING PHYSICIAN/OTH QUALIFIED HEALTH TOWER HAND,INCLUDI NG PROVISION OF ALLERGENIC EXTRACT;2/MORE INJECTIONS 2011 DoD VITAL CAPACITY, TOTAL (SEPARATE PROCEDURE) 2011 DoD PROFESSIONAL SER FOR ALLERGEN IMMUNOTHER IN THE OFFICE/INSTITUTION OF THE PRESCRIBING PHYSICIAN/OTH QUALIFIED HEALTH TOWER HAND,INCLUDI NG PROVISION OF ALLERGENIC EXTRACT;2/MORE INJECTIONS 2011 DoD PROFESSIONAL SER FOR ALLERGEN IMMUNOTHER IN THE OFFICE/INSTITUTION OF THE PRESCRIBING PHYSICIAN/OTH QUALIFIED HEALTH TOWER HAND,INCLUDI NG PROVISION OF ALLERGENIC EXTRACT;2/MORE INJECTIONS 2010 DoD PROFESSIONAL SER FOR ALLERGEN IMMUNOTHER IN THE OFFICE/INSTITUTION OF THE PRESCRIBING PHYSICIAN/OTH QUALIFIED HEALTH TOWER HAND,INCLUDI NG PROVISION OF ALLERGENIC EXTRACT;2/MORE INJECTIONS 2010 DoD PROFESSIONAL SER FOR ALLERGEN IMMUNOTHER IN THE OFFICE/INSTITUTION OF THE PRESCRIBING PHYSICIAN/OTH QUALIFIED HEALTH TOWER HAND,INCLUDI NG PROVISION OF ALLERGENIC EXTRACT;2/MORE INJECTIONS 2010 DoD SCREENING [facility] SMEAR; OBTAINING, PREPARING AND CONVEYANCE OF CERVICAL OR VAGINAL SMEAR TO LABORATORY 2010 DoD VITAL CAPACITY, TOTAL (SEPARATE PROCEDURE) 2010 DoD VITAL CAPACITY, TOTAL (SEPARATE PROCEDURE) 2010 DoD PROFESSIONAL SER FOR ALLERGEN IMMUNOTHER IN THE OFFICE/INSTITUTION OF THE PRESCRIBING PHYSICIAN/OTH QUALIFIED HEALTH TOWER HAND,INCLUDI NG PROVISION OF ALLERGENIC EXTRACT;2/MORE INJECTIONS 2010 DoD PROFESSIONAL SER FOR ALLERGEN IMMUNOTHER IN THE OFFICE/INSTITUTION OF THE PRESCRIBING PHYSICIAN/OTH QUALIFIED HEALTH TOWER HAND,INCLUDI NG PROVISION OF ALLERGENIC EXTRACT;2/MORE INJECTIONS 2010 DoD PROFESSIONAL SER FOR ALLERGEN IMMUNOTHER IN THE OFFICE/INSTITUTION OF THE PRESCRIBING PHYSICIAN/OTH QUALIFIED HEALTH TOWER HAND,INCLUDI NG PROVISION OF ALLERGENIC EXTRACT;2/MORE INJECTIONS 2010 DoD PROFESSIONAL SER FOR ALLERGEN IMMUNOTHER IN THE OFFICE/INSTITUTION OF THE PRESCRIBING PHYSICIAN/OTH QUALIFIED HEALTH TOWER HAND,INCLUDI NG PROVISION OF ALLERGENIC EXTRACT;2/MORE INJECTIONS 2010 DoD PROFESSIONAL SER FOR ALLERGEN IMMUNOTHER IN THE OFFICE/INSTITUTION OF THE PRESCRIBING PHYSICIAN/OTH QUALIFIED HEALTH TOWER HAND,INCLUDI NG PROVISION OF ALLERGENIC EXTRACT;2/MORE INJECTIONS 2010 DoD PROFESSIONAL SER FOR ALLERGEN IMMUNOTHER IN THE OFFICE/INSTITUTION OF THE PRESCRIBING PHYSICIAN/OTH QUALIFIED HEALTH TOWER HAND,INCLUDI NG PROVISION OF ALLERGENIC EXTRACT;2/MORE INJECTIONS 2010 DoD PROFESSIONAL SER FOR ALLERGEN IMMUNOTHER IN THE OFFICE/INSTITUTION OF THE PRESCRIBING PHYSICIAN/OTH QUALIFIED HEALTH TOWER HAND,INCLUDI NG PROVISION OF ALLERGENIC EXTRACT;2/MORE INJECTIONS 2010 DoD SPIROMETRY, INCLUDING GRAPHIC RECORD, TOTAL AND TIMED VITAL CAPACITY, EXPIRATORY FLOW RATE MEASUREMENT(S), WITH OR WITHOUT MAXIMAL VOLUNTARY VENTILATION 2010 DoD PROFESSIONAL SER FOR ALLERGEN IMMUNOTHER IN THE OFFICE/INSTITUTION OF THE PRESCRIBING PHYSICIAN/OTH QUALIFIED HEALTH TOWER HAND,INCLUDI NG PROVISION OF ALLERGENIC EXTRACT;2/MORE INJECTIONS 2010 DoD PROFESSIONAL SER FOR ALLERGEN IMMUNOTHER IN THE OFFICE/INSTITUTION OF THE PRESCRIBING PHYSICIAN/OTH QUALIFIED HEALTH TOWER HAND,INCLUDI NG PROVISION OF ALLERGENIC EXTRACT;2/MORE INJECTIONS 2010 DoD VITAL CAPACITY, TOTAL (SEPARATE PROCEDURE) 2010 DoD PROFESSIONAL SER FOR ALLERGEN IMMUNOTHER IN THE OFFICE/INSTITUTION OF THE PRESCRIBING PHYSICIAN/OTH QUALIFIED HEALTH TOWER HAND,INCLUDI NG PROVISION OF ALLERGENIC EXTRACT;2/MORE INJECTIONS 2010 DoD VITAL CAPACITY, TOTAL (SEPARATE PROCEDURE) 2010 DoD PROFESSIONAL SER FOR ALLERGEN IMMUNOTHER IN THE OFFICE/INSTITUTION OF THE PRESCRIBING PHYSICIAN/OTH QUALIFIED HEALTH TOWER HAND,INCLUDI NG PROVISION OF ALLERGENIC EXTRACT;2/MORE INJECTIONS 2010 DoD VITAL CAPACITY, TOTAL (SEPARATE PROCEDURE) 2010 DoD RESPIRATORY FLOW VOLUME LOOP 2010 DoD PROFESSIONAL SER FOR ALLERGEN IMMUNOTHER IN THE OFFICE/INSTITUTION OF THE PRESCRIBING PHYSICIAN/OTH QUALIFIED HEALTH TOWER HAND,INCLUDI NG PROVISION OF ALLERGENIC EXTRACT;2/MORE INJECTIONS 2009 DoD PROFESSIONAL SER FOR ALLERGEN IMMUNOTHER IN THE OFFICE/INSTITUTION OF THE PRESCRIBING PHYSICIAN/OTH QUALIFIED HEALTH TOWER HAND,INCLUDI NG PROVISION OF ALLERGENIC EXTRACT;2/MORE INJECTIONS 2009 [...] OFFICE/INSTITUTION OF THE PRESCRIBING PHYSICIAN/OTH QUALIFIED HEALTH TOWER HAND,INCLUDI NG PROVISION OF ALLERGENIC EXTRACT;2/MORE INJECTIONS 2009 DoD PROFESSIONAL SER FOR ALLERGEN IMMUNOTHER IN THE OFFICE/INSTITUTION OF THE PRESCRIBING PHYSICIAN/OTH QUALIFIED HEALTH TOWER HAND,INCLUDI NG PROVISION OF ALLERGENIC EXTRACT;2/MORE INJECTIONS 2009 DoD PROFESSIONAL SER FOR ALLERGEN IMMUNOTHER IN THE OFFICE/INSTITUTION OF THE PRESCRIBING PHYSICIAN/OTH QUALIFIED HEALTH TOWER HAND,INCLUDI NG PROVISION OF ALLERGENIC EXTRACT;2/MORE INJECTIONS 2009 DoD VITAL CAPACITY, TOTAL (SEPARATE PROCEDURE) 2009 DoD PROFESSIONAL SER FOR ALLERGEN IMMUNOTHER IN THE OFFICE/INSTITUTION OF THE PRESCRIBING PHYSICIAN/OTH QUALIFIED HEALTH TOWER HAND,INCLUDI NG PROVISION OF ALLERGENIC EXTRACT;2/MORE INJECTIONS 2009 DoD VITAL CAPACITY, TOTAL (SEPARATE PROCEDURE) 2009 DoD VITAL CAPACITY, TOTAL (SEPARATE PROCEDURE) 2009 DoD PROFESSIONAL SER FOR ALLERGEN IMMUNOTHER IN THE OFFICE/INSTITUTION OF THE PRESCRIBING PHYSICIAN/OTH QUALIFIED HEALTH TOWER HAND,INCLUDI NG PROVISION OF ALLERGENIC EXTRACT;2/MORE INJECTIONS 2009 DoD PROFESSIONAL SER FOR ALLERGEN IMMUNOTHER IN THE OFFICE/INSTITUTION OF THE PRESCRIBING PHYSICIAN/OTH QUALIFIED HEALTH TOWER HAND,INCLUDI NG PROVISION OF ALLERGENIC EXTRACT;2/MORE INJECTIONS 2009 DoD VITAL CAPACITY, TOTAL (SEPARATE PROCEDURE) 2009 DoD VITAL CAPACITY, TOTAL (SEPARATE PROCEDURE) 2009 DoD PROFESSIONAL SER FOR ALLERGEN IMMUNOTHER IN THE OFFICE/INSTITUTION OF THE PRESCRIBING PHYSICIAN/OTH QUALIFIED HEALTH TOWER HAND,INCLUDI NG PROVISION OF ALLERGENIC EXTRACT;2/MORE INJECTIONS 2008 DoD NONINVASIVE EAR OR PULSE OXIMETRY FOR OXYGEN SATURATION; SINGLE DETERMINATION 2008 DoD VITAL CAPACITY, TOTAL (SEPARATE PROCEDURE) 2008 DoD PROFESSIONAL SER FOR ALLERGEN IMMUNOTHER IN THE OFFICE/INSTITUTION OF THE PRESCRIBING PHYSICIAN/OTH QUALIFIED HEALTH TOWER HAND,INCLUDI NG PROVISION OF ALLERGENIC EXTRACT;2/MORE INJECTIONS 2008 DoD VITAL CAPACITY, TOTAL (SEPARATE PROCEDURE) 2008 DoD PROFESSIONAL SER FOR ALLERGEN IMMUNOTHER IN THE OFFICE/INSTITUTION OF THE PRESCRIBING PHYSICIAN/OTH QUALIFIED HEALTH TOWER HAND,INCLUDI NG PROVISION OF ALLERGENIC EXTRACT;2/MORE INJECTIONS 2008 DoD PROFESSIONAL SER FOR ALLERGEN IMMUNOTHER IN THE OFFICE/INSTITUTION OF THE PRESCRIBING PHYSICIAN/OTH QUALIFIED HEALTH TOWER HAND,INCLUDI NG PROVISION OF ALLERGENIC EXTRACT;2/MORE INJECTIONS 2008 [...] OFFICE/INSTITUTION OF THE PRESCRIBING PHYSICIAN/OTH QUALIFIED HEALTH TOWER HAND,INCLUDI NG PROVISION OF ALLERGENIC EXTRACT;2/MORE INJECTIONS 2008 DoD PROFESSIONAL SER FOR ALLERGEN IMMUNOTHER IN THE OFFICE/INSTITUTION OF THE PRESCRIBING PHYSICIAN/OTH QUALIFIED HEALTH TOWER HAND,INCLUDI NG PROVISION OF ALLERGENIC EXTRACT;2/MORE INJECTIONS 2008 DoD PROFESSIONAL SER FOR ALLERGEN IMMUNOTHER IN THE OFFICE/INSTITUTION OF THE PRESCRIBING PHYSICIAN/OTH QUALIFIED HEALTH TOWER HAND,INCLUDI NG PROVISION OF ALLERGENIC EXTRACT;2/MORE INJECTIONS 2008 DoD PROFESSIONAL SER FOR ALLERGEN IMMUNOTHER IN THE OFFICE/INSTITUTION OF THE PRESCRIBING PHYSICIAN/OTH QUALIFIED HEALTH TOWER HAND,INCLUDI NG PROVISION OF ALLERGENIC EXTRACT;2/MORE INJECTIONS 2008 DoD VITAL CAPACITY, TOTAL (SEPARATE PROCEDURE) 2008 DoD PROFESSIONAL SER FOR ALLERGEN IMMUNOTHER IN THE OFFICE/INSTITUTION OF THE PRESCRIBING PHYSICIAN/OTH QUALIFIED HEALTH TOWER HAND,INCLUDI NG PROVISION OF ALLERGENIC EXTRACT;2/MORE INJECTIONS 2008 [...] OFFICE/INSTITUTION OF THE PRESCRIBING PHYSICIAN/OTH QUALIFIED HEALTH TOWER HAND,INCLUDI NG PROVISION OF ALLERGENIC EXTRACT;2/MORE INJECTIONS 2008 DoD PROFESSIONAL SER FOR ALLERGEN IMMUNOTHER IN THE OFFICE/INSTITUTION OF THE PRESCRIBING PHYSICIAN/OTH QUALIFIED HEALTH TOWER HAND,INCLUDI NG PROVISION OF ALLERGENIC EXTRACT;2/MORE INJECTIONS 2007 DoD PROFESSIONAL SER FOR ALLERGEN IMMUNOTHER IN THE OFFICE/INSTITUTION OF THE PRESCRIBING PHYSICIAN/OTH QUALIFIED HEALTH TOWER HAND,INCLUDI NG PROVISION OF ALLERGENIC EXTRACT;2/MORE INJECTIONS 2007 DoD PROFESSIONAL SER FOR ALLERGEN IMMUNOTHER IN THE OFFICE/INSTITUTION OF THE PRESCRIBING PHYSICIAN/OTH QUALIFIED HEALTH TOWER HAND,INCLUDI NG PROVISION OF ALLERGENIC EXTRACT;2/MORE INJECTIONS 2007 [...] OFFICE/INSTITUTION OF THE PRESCRIBING PHYSICIAN/OTH QUALIFIED HEALTH TOWER HAND,INCLUDI NG PROVISION OF ALLERGENIC EXTRACT;2/MORE INJECTIONS 2007 DoD PROFESSIONAL SER FOR ALLERGEN IMMUNOTHER IN THE OFFICE/INSTITUTION OF THE PRESCRIBING PHYSICIAN/OTH QUALIFIED HEALTH TOWER HAND,INCLUDI NG PROVISION OF ALLERGENIC EXTRACT;2/MORE INJECTIONS 2007 DoD VITAL CAPACITY, TOTAL (SEPARATE PROCEDURE) 2007 DoD PROFESSIONAL SER FOR ALLERGEN IMMUNOTHER IN THE OFFICE/INSTITUTION OF THE PRESCRIBING PHYSICIAN/OTH QUALIFIED HEALTH TOWER HAND,INCLUDI NG PROVISION OF ALLERGENIC EXTRACT;2/MORE INJECTIONS 2007 [...] OFFICE/INSTITUTION OF THE PRESCRIBING PHYSICIAN/OTH QUALIFIED HEALTH TOWER HAND,INCLUDI NG PROVISION OF ALLERGENIC EXTRACT;2/MORE INJECTIONS 2007 DoD PROFESSIONAL SER FOR ALLERGEN IMMUNOTHER IN THE OFFICE/INSTITUTION OF THE PRESCRIBING PHYSICIAN/OTH QUALIFIED HEALTH TOWER HAND,INCLUDI NG PROVISION OF ALLERGENIC EXTRACT;2/MORE INJECTIONS 2007 DoD PROFESSIONAL SER FOR ALLERGEN IMMUNOTHER IN THE OFFICE/INSTITUTION OF THE PRESCRIBING PHYSICIAN/OTH QUALIFIED HEALTH TOWER HAND,INCLUDI NG PROVISION OF ALLERGENIC EXTRACT;2/MORE INJECTIONS 2007 DoD DIPHTHERIA, TETANUS TOXOIDS, AND ACELLULAR PERTUSSIS VACCINE (DTAP), WHEN ADMINISTERED TO INDIVIDUALS YOUNGER THAN 7 YEARS, FOR INTRAMUSCULAR USE 2007 DoD PERCUTANEOUS TESTS (SCRATCH, PUNCTURE, PRICK) WITH ALLERGENIC EXTRACTS, IMMEDIATE TYPE REACTION, INCLUDING TEST INTERPRETATION AND REPORT, SPECIFY NUMBER OF TESTS 2007 DoD PRESSURIZED/NONPRESS INHAL TREAT FOR AC AIRWAY OBSTRUCT,THERAP PURPOSE &/FOR DIAG PURP SUCH SPUTUM INDUCTION W AN AEROSOL GEN,NEBULIZER,METER DOSE INHALER/INTERMIT POSIT PRESS BREATHING (IPPB) DEV 2006 DoD SCREENING [facility] SMEAR; OBTAINING, PREPARING AND CONVEYANCE OF CERVICAL OR VAGINAL SMEAR TO LABORATORY 2006 [facility] COLLECTION OF VENOUS BLOOD BY VENIPUNCTURE 2005 [facility] INJECTION, TRIAMCINOLONE ACETONIDE, NOT OTHERWISE SPECIFIED, [address] [facility] NONINVASIVE EAR OR PULSE OXIMETRY FOR OXYGEN SATURATION; SINGLE DETERMINATION 2002 [facility] VITAL CAPACITY, TOTAL (SEPARATE PROCEDURE) 2001 [facility] SKIN TEST; TUBERCULOSIS, INTRADERMAL 2001 [facility] FAMILY PSYCHOTHERAPY (CONJOINT PSYCHOTHERAPY) (WITH PATIENT PRESENT), [address] [facility] PSYCHIATRIC DIAGNOSTIC INTERVIEW EXAMINATION 2000 [facility] PSYCHIATRIC EVALUATION OF HOSPITAL RECORDS, OTHER PSYCHIATRIC REPORTS, PSYCHOMETRIC AND/OR PROJECTIVE TESTS, AND OTHER ACCUMULATED DATA FOR MEDICALDIAGNOSTIC PURPOSES 2000 [facility] PNEUMOCOCCAL CONJUGATE VACCINE, 7 VALENT, FOR INTRAMUSCULAR USE 1999 [facility] BRONCHODILATION RESPONSIVENESS, [place] [id number], PRE- AND POST-BRONCHODILATOR ADMINISTRATION 1999 [facility] COMPUTERIZED AXIAL TOMOGRAPHY OF ABDOMEN 1999 [facility] RADIOLOGIC EXAMINATION, CHEST; SINGLE VIEW, FRONTAL 1999 [facility] FAMILY PSYCHOTHERAPY (CONJOINT PSYCHOTHERAPY) (WITH PATIENT PRESENT), [address] [facility] RANGE OF MOTION MEASUREMENTS AND REPORT (SEPARATE PROCEDURE); HAND, WITH OR WITHOUT COMPARISON WITH NORMAL SIDE 1999 [facility] APPLICATION OF FINGER SPLINT; STATIC 1999 [facility] CHECKOUT FOR ORTHOTIC/PROSTHETIC USE, ESTABLISHED PATIENT, EACH [address] [facility] PHYSICAL PERFORMANCE TEST OR MEASUREMENT (EG, MUSCULOSKELETAL, FUNCTIONAL CAPACITY), WITH WRITTEN REPORT, EACH [address] [facility] Cervical or vaginal cancer screening; pelvic and clinical breast examination [address] [facility] Venipuncture Venipuncture 55546 [address] [facility] Desensitization Supervision - Multiple Extract Injections Desensitization Supervision - Multiple Extract Injections 36411 2013 PRICE LION Pulmonary Function VC (% Predicted Normal) Pulmonary Function VC (% Predicted Normal) 18765 2013 PRICE LION Pulmonary Function VC (% Predicted Normal) Pulmonary Function VC (% Predicted Normal) [address] [facility] Desensitization Supervision - Multiple Extract Injections Desensitization Supervision - Multiple Extract Injections 94417 2013 PRICE LION Desensitization Supervision - Multiple Extract Injections Desensitization Supervision - Multiple Extract Injections 44[address] [facility] Pulmonary Function VC (% Predicted Normal) Pulmonary Function VC (% Predicted Normal) [address] [facility] Desensitization Supervision - Multiple Extract Injections Desensitization Supervision - Multiple Extract Injections [address] [facility] Pulmonary Function VC (% Predicted Normal) Pulmonary Function VC (% Predicted Normal) [address] [facility] Desensitization Supervision - Multiple Extract Injections Desensitization Supervision - Multiple Extract Injections 81032 2013 PRICE LION Allergen Desensitization Rapid Allergen Desensitization Rapid 65604 2013 IRAIS HANSEN Pulmonary Function VC (% Predicted Normal) Pulmonary Function VC (% Predicted Normal) 41537 2013 IRAIS HANSEN Allergen Desensitization Rapid Allergen Desensitization Rapid 35702 2013 PRICE LION Pulmonary Function VC (% Predicted Normal) Pulmonary Function VC (% Predicted Normal) 16160 2013 PRICE LION Allergy Percutaneous tests - allergenic extracts Allergy Percutaneous tests - allergenic extracts [address] [facility] Pulmonary Function Tests Pulmonary Function Tests [address] [facility] Desensitization Supervision - Multiple Extract Injections Desensitization Supervision - Multiple Extract Injections 94743 2013 IRAIS HANSEN Pulmonary Function VC (% Predicted Normal) Pulmonary Function VC (% Predicted Normal) 86564 2013 IRAIS HANSEN Referral For Peak Cough Expiratory Flow Referral For Peak Cough Expiratory Flow 3758F 2013 KATY VASQUEZ Peak flow 420 DoD Desensitization Injection, Supply Multiple Allerg. Extracts Desensitization Injection, Supply Multiple Allerg. Extracts 90700 2013 KATY VASQUEZ Right upper 0.25 ml of red vial tree, cat, right lower 0.25 of red grass, weed; 0.25 ml of red, left arm mold, lowry, dust mite, dog: peak flow 420 [facility] Pulmonary Function Tests Pulmonary Function Tests 99875 2013 KATY VASQUEZ Pre and post xopenex [facility] Patient Education Asthma Metered Dose Inhaler Patient Education Asthma Metered Dose Inhaler 04631 2013 WARREN PHIPPS Patient counseled on the reasoning for the use of and given demonstration of the proper use of an MDI with spacer. Patient was able to demonstrate proper use and verbalizes understanding. DoD Desensitization Supervision - Multiple Extract Injections Desensitization Supervision - Multiple Extract Injections [address] [facility] Pulmonary Function VC (% Predicted Normal) Pulmonary Function VC (% Predicted Normal) [address] [facility] Desensitization Supervision - Multiple Extract Injections Desensitization Supervision - Multiple Extract Injections 29536 2013 ANA LAURA PAZ Pulmonary Function VC (% Predicted Normal) Pulmonary Function VC (% Predicted Normal) 85965 2013 ANA LAURA PAZ Pulmonary Function VC (% Predicted Normal) Pulmonary Function VC (% Predicted Normal) [address] [facility] Desensitization Supervision - Multiple Extract Injections Desensitization Supervision - Multiple Extract Injections 40800 2013 PRICE LION Pulmonary Function VC (% Predicted Normal) Pulmonary Function VC (% Predicted Normal) [address] [facility] Desensitization Supervision - Multiple Extract Injections Desensitization Supervision - Multiple Extract Injections [address] [facility] Vaccines Vaccines 00899 2012 LIANA CALLEJAS Influenza Split (Injectable); Series #: 1; .5 mL; IM; Left Arm; Mfg: Sanof[employer] Pasteur; Lot: [id number]; VIS given (Linda: 10/14/12). DoD Immunization Administration By Injection, One Vaccine Immunization Administration By Injection, One Vaccine [address] [facility] Desensitization Supervision - Multiple Extract Injections Desensitization Supervision - Multiple Extract Injections [address] [facility] Pulmonary Function VC (% Predicted Normal) Pulmonary Function VC (% Predicted Normal) [address] [facility] Desensitization Supervision - Multiple Extract Injections Desensitization Supervision - Multiple Extract Injections 52636 2012 ANA LAURA PAZ Pulmonary Function VC (% Predicted Normal) Pulmonary Function VC (% Predicted Normal) 69281 2012 ANA LAURA PAZ Pulmonary Function VC (% Predicted Normal) Pulmonary Function VC (% Predicted Normal) 8[address] [facility] Desensitization Supervision - Multiple Extract Injections Desensitization Supervision - Multiple Extract Injections 95827 2012 ANA LAURA PAZ Desensitization Supervision - Multiple Extract Injections Desensitization Supervision - Multiple Extract Injections 895[address] [facility] Pulmonary Function VC (% Predicted Normal) Pulmonary Function VC (% Predicted Normal) 16334 2012 ANA LAURA PAZ Pulmonary Function VC (% Predicted Normal) Pulmonary Function VC (% Predicted Normal) 7[address] [facility] Desensitization Supervision - Multiple Extract Injections Desensitization Supervision - Multiple Extract Injections [address] [facility] Desensitization Injection, Supply Multiple Allerg. Extracts Desensitization Injection, Supply Multiple Allerg. Extracts 65999 [address] [facility] Spirometry Spirometry 5[address] [facility] Desensitization Injection, Supply Multiple Allerg. Extracts Desensitization Injection, Supply Multiple Allerg. Extracts 73872 [address] [facility] Spirometry Spirometry 80416 [address] [facility] Portable peak flow meter [address] [facility] Desensitization Supervision - Multiple Extract Injections Desensitization Supervision - Multiple Extract Injections [address] [facility] Desensitization Injection, Supply Multiple Allerg. Extracts Desensitization Injection, Supply Multiple Allerg. Extracts 09920 2012 IRAIS HANSEN Pulmonary Function VC (% Predicted Normal) Pulmonary Function VC (% Predicted Normal) 88696 2012 IRAIS HANSEN Desensitization Injection, Supply Multiple Allerg. Extracts Desensitization Injection, Supply Multiple Allerg. Extracts 58582 2012 IRAIS HANSEN Pulmonary Function VC (% Predicted Normal) Pulmonary Function VC (% Predicted Normal) 13796 2012 IRAIS HANSEN Pulmonary Function Tests Pulmonary Function Tests [address] [facility] Desensitization Injection, Supply Single Allergenic Extract Desensitization Injection, Supply Single Allergenic Extract 08334 2012 FRANKI JAMES (g,w:) Right upper arm SQ (t,c:) Right lower arm SQ (m,dmx,cr,d:) Left arm SQ DoD Desensitization Injection, Supply Multiple Allerg. Extracts Desensitization Injection, Supply Multiple Allerg. Extracts [address] [facility] Pulmonary Function Tests Pulmonary Function Tests [address] [facility] Desensitization Injection, Supply Single Allergenic Extract Desensitization Injection, Supply Single Allergenic Extract [address] [facility] Desensitization Injection, Supply Multiple Allerg. Extracts Desensitization Injection, Supply Multiple Allerg. Extracts [address] [facility] Spirometry Peak Expiratory Flow Spirometry Peak Expiratory Flow [address] [facility] Desensitization Injection, Supply Multiple Allerg. Extracts Desensitization Injection, Supply Multiple Allerg. Extracts [address] [facility] Desensitization Injection, Supply Multiple Allerg. Extracts Desensitization Injection, Supply Multiple Allerg. Extracts [address] [facility] Spirometry Peak Expiratory Flow Spirometry Peak Expiratory Flow [address] [facility] Pneumococcal Polysaccharide Vaccine (Age 2Y+) Pneumococcal Polysaccharide Vaccine (Age 2Y+) 42565 2011 SHAKIR VICTORIA Pneumococcal; Series #: 1; .5 mL; IM; Left Arm; Mfg: Merck; Lot: [id number]; VIS given (Linda: 12/25/2008). [facility] Vaccines Vaccines 21122 2011 SHAKIR VICTORIA Influenza Split (Injectable - preservative free); Series #: 1; .5 mL; IM; Left Arm; Mfg: Sanofi Pasteur; Lot: [id number]; VIS given (Linda: 09/21/11). [facility] Immunization Administration By Injection, One Vaccine Immunization Administration By Injection, One Vaccine [address] [facility] Immunization Administration By Injection, Each Additional Vaccine [address] [facility] Spirometry Spirometry [address] [facility] Spirometry Spirometry [address] [facility] Spirometry Peak Expiratory Flow Spirometry Peak Expiratory Flow [address] [facility] Desensitization Injection, Supply Multiple Allerg. Extracts Desensitization Injection, Supply Multiple Allerg. Extracts 57424 2011 [address] shots [facility] Spirometry Spirometry 74113 2011 KATY VASQUEZ DoD Desensitization Injection, Supply Multiple Allerg. Extracts Desensitization Injection, Supply Multiple Allerg. Extracts [address] [facility] Spirometry Peak Expiratory Flow Spirometry Peak Expiratory Flow [address] [facility] Pulmonary Function Tests Pulmonary Function Tests [address] [facility] Pulmonary Function Tests Pulmonary Function Tests [address] [facility] Spirometry Spirometry 94864 2011 KATY VASQUEZ Pre and post Xopenex MDI 2 puffs. DoD Desensitization Injection, Supply Multiple Allerg. Extracts Desensitization Injection, Supply Multiple Allerg. Extracts 30426 2011 KATY VASQUEZ Administered 0.5 ml red vial T, C SQ to L upper arm, 0.5 ml red vial G, W SQ to R upper arm, and 0.5 ml red vial M, Dmx, Cr, D SQ to R upper arm, pt tolerated well. [facility] Spirometry Peak Expiratory Flow Spirometry Peak Expiratory Flow 03189 2011 KATY VASQUEZ PF 420 DoD Desensitization Injection, Supply Multiple Allerg. Extracts Desensitization Injection, Supply Multiple Allerg. Extracts [address] [facility] Spirometry Peak Expiratory Flow Spirometry Peak Expiratory Flow 65505 2011 IRAIS HANSEN DoD Desensitization Injection, Supply Multiple Allerg. Extracts Desensitization Injection, Supply Multiple Allerg. Extracts 67573 2011 KATY VASQUEZ AIT X 3 sub-q, t, c to L lateral arm, g, w to R upper lateral arm, m, dmx, cr, d to R lower lateral arm. [facility] Spirometry Peak Expiratory Flow Spirometry Peak Expiratory Flow 90425 2011 KATY VASQUEZ qm=584 DoD Pulmonary Function Tests Pulmonary Function Tests 16720 2011 KATY VASQUEZ Pre and post pirbuterol DoD Physician Supervised Injection Subcutaneous Physician Supervised Injection Subcutaneous 62221 2011 KATY VASQUEZ 2 allergy shots DoD Injection, methylprednisolone sodium succinate, up to 125 mg 2011 HOLLI LOPEZ Administered Solu Medrol 125 mg IM to L deltoid, pt tolerated well. [facility] Pulmonary Function Tests Pulmonary Function Tests 49871 2011 HOLLI LOPEZ DoD Desensitization Injection, Supply Multiple Allerg. Extracts Desensitization Injection, Supply Multiple Allerg. Extracts [address] [facility] Spirometry Peak Expiratory Flow Spirometry Peak Expiratory Flow [address] [facility] Spirometry Peak Expiratory Flow Spirometry Peak Expiratory Flow 40620 2011 LIONPRICE DoD Desensitization Injection, Supply Multiple Allerg. Extracts Desensitization Injection, Supply Multiple Allerg. Extracts 84473 2011 LION, PRICE DoD Desensitization Injection, Supply Multiple Allerg. Extracts Desensitization Injection, Supply Multiple Allerg. Extracts [address] [facility] Spirometry Peak Expiratory Flow Spirometry Peak Expiratory Flow 25557 2011 IRAIS HANSEN DoD Desensitization Injection, Supply Multiple Allerg. Extracts Desensitization Injection, Supply Multiple Allerg. Extracts 39921 2011 VIDA OLIVAS AIT X 3 sub-q, two to R lateral arm, one to L lateral arm. DoD Desensitization Injection, Supply Multiple Allerg. Extracts Desensitization Injection, Supply Multiple Allerg. Extracts 35698 2011 VIDA OLIVAS 0.25 ml fed vial X 3 sub-q, two to R lateral arm, one to L lateral arm DoD Spirometry Peak Expiratory Flow Spirometry Peak Expiratory Flow 94444 2011 VIDA OLIVAS iv=474 DoD Desensitization Injection, Supply Multiple Allerg. Extracts Desensitization Injection, Supply Multiple Allerg. Extracts 12345 2011 VIDA OLIVAS 0.50 ml red vial X 3 sub-q, two to L lateral arm, one to R lateral arm. DoD Desensitization Injection, Supply Multiple Allerg. Extracts Desensitization Injection, Supply Multiple Allerg. Extracts [address] [facility] Spirometry Peak Expiratory Flow Spirometry Peak Expiratory Flow 41165 2011 IRAIS HANSEN DoD Desensitization Injection, Supply Multiple Allerg. Extracts Desensitization Injection, Supply Multiple Allerg. Extracts 22697 2010 DAHIANA POSADA Received 3 allergy injections at 0.5 mL red vial for all 3 DoD Spirometry Peak Expiratory Flow Spirometry Peak Expiratory Flow 24129 2010 IRAIS HANSEN DoD Desensitization Injection, Supply Multiple Allerg. Extracts Desensitization Injection, Supply Multiple Allerg. Extracts [address] [facility] Pulmonary Function VC (% Predicted Normal) Pulmonary Function VC (% Predicted Normal) [address] [facility] Desensitization Supervision - Multiple Extract Injections Desensitization Supervision - Multiple Extract Injections [address] [facility] Pulmonary Function VC (% Predicted Normal) Pulmonary Function VC (% Predicted Normal) [address] [facility] Desensitization Supervision - Multiple Extract Injections Desensitization Supervision - Multiple Extract Injections [address] [facility] Desensitization Supervision - Multiple Extract Injections Desensitization Supervision - Multiple Extract Injections 87611 2018 PRICE LION 0.5ml red t-g-w to right and m-cr to left. [facility] Pulmonary Function VC (% Predicted Normal) Pulmonary Function VC (% Predicted Normal) [address] [facility] Pulmonary Function VC (% Predicted Normal) Pulmonary Function VC (% Predicted Normal) [address] [facility] Desensitization Supervision - Multiple Extract Injections Desensitization Supervision - Multiple Extract Injections [address] [facility] Pulmonary Function - Nitric Oxide Gas Determination Pulmonary Function - Nitric Oxide Gas Determination 70105 2018 WARREN PHIPPS FeNO = 17ppb [facility] Desensitization Supervision, 1+ Antigens, 2+ Mult Dose Vials Desensitization Supervision, 1+ Antigens, 2+ Mult Dose Vials 65744 2018 WARREN PHIPPS Allergen extract prescription reviewed and are of appropriate composition and concentration. Prescription order entered into the extract lab management system. [facility] Pulmonary Function VC (% Predicted Normal) Pulmonary Function VC (% Predicted Normal) [address] [facility] Desensitization Supervision - Multiple Extract Injections Desensitization Supervision - Multiple Extract Injections [address] [facility] Pulmonary Function VC (% Predicted Normal) Pulmonary Function VC (% Predicted Normal) [address] [facility] Desensitization Supervision - Multiple Extract Injections Desensitization Supervision - Multiple Extract Injections [address] [facility] Preventive Med Standardized Depre ion Screening: Negative For Symptoms Preventive Med Standardized Depression Screening: Negative For Symptoms 3351F 2018 EMILIA WIGGINS medcom form 774 completed verbally with the patient. denies any anxiety or depression. no HI/SI DoD Preventive Med Standardized Depre ion Screening: Negative For Symptoms Preventive Med Standardized Depression Screening: Negative For Symptoms 3351F [address] [facility] Desensitization Supervision - Multiple Extract Injections Desensitization Supervision - Multiple Extract Injections 31920 2017 PRICE LION 0.5 ml red t-g-w to left m-cr to right. DoD Pulmonary Function VC (% Predicted Normal) Pulmonary Function VC (% Predicted Normal) 28710 2017 PRICE LION DoD Pulmonary Function VC (% Predicted Normal) Pulmonary Function VC (% Predicted Normal) 77821 2017 IRAIS HANSEN Desensitization Supervision - Multiple Extract Injections Desensitization Supervision - Multiple Extract Injections 09899 2017 IRAIS HANSEN Non-Physician Phone Call To Patient/Provider Brief (5-10min) Non-Physician Phone Call To Patient/Provider Brief (5-10min) [address] [facility] Pulmonary Function VC (% Predicted Normal) Pulmonary Function VC (% Predicted Normal) 69955 2017 IRAIS HANSEN Desensitization Supervision - Multiple Extract Injections Desensitization Supervision - Multiple Extract Injections 26509 2017 IRAIS HANSEN Screening papanicolaou smear; obtaining, preparing and conveyance of cervical or vaginal smear to laboratory [address] [facility] Desensitization Supervision - Multiple Extract Injections Desensitization Supervision - Multiple Extract Injections 31415 2017 PRICE LION 0.05ml red m-cr to left and t-g-w to right. DoD Pulmonary Function VC (% Predicted Normal) Pulmonary Function VC (% Predicted Normal) 53936 2017 PRICE LION DoD Simple Closure Of Wound Dehiscence With Packing Simple Closure Of Wound Dehiscence With Packing 26056 2017 DAHIANA GRIGSBY Packing strips, non-impregnated, sterile, up to 2 inches in width, per linear yard 2017 DAHIANA GRIGSBY Simple Closure Of Wound Dehiscence With Packing Simple Closure Of Wound Dehiscence With Packing 80324 2017 DAHIANA GRIGSBY Preventive Med Standardized Depre ion Screening: Negative For Symptoms Preventive Med Standardized Depression Screening: Negative For Symptoms 3351F [address] [facility] Preventive Med Standardized Depre ion Screening: Negative [...] 0 01/27/2018 C-SSRS-S Current SUICIDALITY 0 [facility] Incision And Drainage Of Skin Absce Incision And Drainage Of Skin Abscess [address] [facility] Pulmonary Function VC (% Predicted Normal) Pulmonary Function VC (% Predicted Normal) [address] [facility] Desensitization Supervision - Multiple Extract Injections Desensitization Supervision - Multiple Extract Injections [address] [facility] Preventive Med Standardized Depre ion Screening: No Significant Symptoms Preventive Med Standardized Depression Screening: No Significant Symptoms 3352F [address] [facility] Desensitization Supervision - Multiple Extract Injections Desensitization Supervision - Multiple Extract Injections 96770 2017 VERA, PAM V Red vial: 0.5ml sq Left arm; m,cr Red vial: 0.5ml sq Right arm; t,g,w [facility] Pulmonary Function VC (% Predicted Normal) Pulmonary Function VC (% Predicted Normal) 37935 2017 VERA, PAM V Peak Flow 430 DoD Pulmonary Function VC (% Predicted Normal) Pulmonary Function VC (% Predicted Normal) [address] [facility] Desensitization Supervision - Multiple Extract Injections Desensitization Supervision - Multiple Extract Injections [address] [facility] Desensitization Supervision, 1+ Antigens, 2+ Mult Dose Vials Desensitization Supervision, 1+ Antigens, 2+ Mult Dose Vials 44534 2017 WARREN PHIPPS Allergen extract prescription reviewed and are of appropriate composition and concentration. Prescription order entered into the extract lab management system. [facility] Pulmonary Function VC (% Predicted Normal) Pulmonary Function VC (% Predicted Normal) 79784 2017 WARREN PHIPPS DoD Desensitization Supervision - Multiple Extract Injections Desensitization Supervision - Multiple Extract Injections 37661 2017 WARREN PHIPPS refill extracts ordered in [facility] Pulmonary Function VC (% Predicted Normal) Pulmonary Function VC (% Predicted Normal) [address] [facility] Desensitization Supervision - Multiple Extract Injections Desensitization Supervision - Multiple Extract Injections [address] [facility] Desensitization Supervision - Multiple Extract Injections Desensitization Supervision - Multiple Extract Injections 87653 2017 VERA, PAM V Red vial: 0.5ml sq Left arm; m,cr Red vial: 0.5ml sq Right arm; t,g,w DoD Pulmonary Function VC (% Predicted Normal) Pulmonary Function VC (% Predicted Normal) 15358 2017 VERA, PAM V Peak Flow 420 DoD Desensitization Supervision - Multiple Extract Injections Desensitization Supervision - Multiple Extract Injections 82036 2017 PRICE LION 0.5ml red tj-g-w to left and m-cr to right DoD Pulmonary Function VC (% Predicted Normal) Pulmonary Function VC (% Predicted Normal) 80712 2017 PRICE LION DoD Desensitization Supervision - Multiple Extract Injections Desensitization Supervision - Multiple Extract Injections 11346 2017 VERA, PAM V Red vial: 0.5ml sq Right arm; m,cr Red vial: 0.5ml sq Left arm; t,g,w DoD Pulmonary Function VC (% Predicted Normal) Pulmonary Function VC (% Predicted Normal) 35665 2017 VERA, PAM V Peak Flow meets standards: 400 DoD Desensitization Supervision, 1+ Antigens, 2+ Mult Dose Vials Desensitization Supervision, 1+ Antigens, 2+ Mult Dose Vials 82035 2017 WARREN PHIPPS Allergen extract prescription reviewed and are of appropriate composition and concentration. Prescription order entered into the extract lab management system. [facility] Pulmonary Function - Nitric Oxide Gas Determination Pulmonary Function - Nitric Oxide Gas Determination 26592 2017 WARREN PHIPPS FENO = 11ppb [facility] Pulmonary Function VC (% Predicted Normal) Pulmonary Function VC (% Predicted Normal) [address] [facility] Desensitization Supervision - Multiple Extract Injections Desensitization Supervision - Multiple Extract Injections [address] [facility] Preventive Med Standardized Depre ion Screening: Negative For Symptoms Preventive Med Standardized Depression Screening: Negative For Symptoms 3351F [address] [facility] Pulmonary Function VC (% Predicted Normal) Pulmonary Function VC (% Predicted Normal) [address] [facility] Desensitization Supervision - Multiple Extract Injections Desensitization Supervision - Multiple Extract Injections 58495 2017 IRAIS HANSEN Pulmonary Function VC (% Predicted Normal) Pulmonary Function VC (% Predicted Normal) 78177 2016 IRAIS HANSEN Desensitization Supervision - Multiple Extract Injections Desensitization Supervision - Multiple Extract Injections 63361 2016 IRAIS HANSEN Preventive Med Standardized Depre ion Screening: Negative For Symptoms Preventive Med Standardized Depression Screening: Negative For Symptoms 3351F [address] [facility] Pulmonary Function VC (% Predicted Normal) Pulmonary Function VC (% Predicted Normal) 67967 2016 IRAIS HANSEN Desensitization Supervision - Multiple Extract Injections Desensitization Supervision - Multiple Extract Injections 60810 2016 IRAIS HANSEN Pulmonary Function VC (% Predicted Normal) Pulmonary Function VC (% Predicted Normal) 88680 2016 IRAIS HANSEN Desensitization Supervision - Multiple Extract Injections Desensitization Supervision - Multiple Extract Injections 98711 2016 IRAIS HANSEN Pulmonary Function VC (% Predicted Normal) Pulmonary Function VC (% Predicted Normal) [address] [facility] Desensitization Supervision - Multiple Extract Injections Desensitization Supervision - Multiple Extract Injections 41244 2016 DAMON CHATMAN Preventive Med Standardized Depre ion Screening: Negative For Symptoms Preventive Med Standardized Depression Screening: Negative For Symptoms [id number] [address] [facility] Desensitization Supervision - Multiple Extract Injections Desensitization Supervision - Multiple Extract Injections 33557 2016 PRICE LION sub-q injections to upper arms 0.5ml red t-g-w to left and m-cr to right. DoD Pulmonary Function VC (% Predicted Normal) Pulmonary Function VC (% Predicted Normal) [address] [facility] Pulmonary Function VC (% Predicted Normal) Pulmonary Function VC (% Predicted Normal) [address] [facility] Desensitization Supervision - Multiple Extract Injections Desensitization Supervision - Multiple Extract Injections [address] [facility] Pulmonary Function VC (% Predicted Normal) Pulmonary Function VC (% Predicted Normal) 33669 2016 FELIPE FORBES Desensitization Supervision - Multiple Extract Injections Desensitization Supervision - Multiple Extract Injections [address] [facility] Desensitization Supervision - Multiple Extract Injections Desensitization Supervision - Multiple Extract Injections 75383 2016 ANAIS VARELA Pulmonary Function VC (% Predicted Normal) Pulmonary Function VC (% Predicted Normal) 36544 2016 ANAIS VARELA Pulmonary Function VC (% Predicted Normal) Pulmonary Function VC (% Predicted Normal) [address] [facility] Desensitization Supervision - Multiple Extract Injections Desensitization Supervision - Multiple Extract Injections 50588 2016 GARY LIONA sub-q injections to upper arms 0.5ml red t-g-w to left and m-cr to right. [facility] Desensitization Supervision - Multiple Extract Injections Desensitization Supervision - Multiple Extract Injections 95205 2016 GARY LIONA sub-q injections toupper arms 0.5ml red t-g-w to right and m-cr to left. [facility] Pulmonary Function VC (% Predicted Normal) Pulmonary Function VC (% Predicted Normal) 84865 2016 PRICE LION Desensitization Supervision - Multiple Extract Injections Desensitization Supervision - Multiple Extract Injections 33947 2016 GARY LIONA sub-q injections to upper arms 0.5ml red t-g-w to left and m-cr to right. [facility] Pulmonary Function VC (% Predicted Normal) Pulmonary Function VC (% Predicted Normal) 08461 2016 PRICE LION Desensitization Supervision - Multiple Extract Injections Desensitization Supervision - Multiple Extract Injections 53019 2016 ANAIS VARELA Desensitization Supervision - Single Injection Desensitization Supervision - Single Injection 20534 2016 ANAIS VARELA Pulmonary Function VC (% Predicted Normal) Pulmonary Function VC (% Predicted Normal) 09557 2016 ANAIS VARELA Desensitization Supervision - Multiple Extract Injections Desensitization Supervision - Multiple Extract Injections [address] [facility] Pulmonary Function VC (% Predicted Normal) Pulmonary Function VC (% Predicted Normal) [address] [facility] Pulmonary Function VC (% Predicted Normal) Pulmonary Function VC (% Predicted Normal) [address] [facility] Desensitization Supervision - Multiple Extract Injections Desensitization Supervision - Multiple Extract Injections [address] [facility] Spirometry Post-bronchodil[place] [address] WARREN PHIPPS Spirometry shows a restrictive pattern [...] Supervision, 1+ Antigens, 2+ Mult Dose Vials 85864 WARREN PHIPPS O Allergen extract prescription reviewed and are of appropriate composition and concentration. Prescription order entered into the extract lab management system. DoD Desensitization Injection, Supply Multiple Allerg. Extracts Desensitization Injection, Supply Multiple Allerg. Extracts 32403 2008 IRAIS HANSEN received [address] [facility] Spirometry Peak Expiratory Flow Spirometry Peak Expiratory Flow [address] [facility] Desensitization Injection, Supply Multiple Allerg. Extracts Desensitization Injection, Supply Multiple Allerg. Extracts [address] [facility] Spirometry Peak Expiratory Flow Spirometry Peak Expiratory Flow 36257 2008 ISSA CAMPOVERDE DoD Desensitization Injection, Supply Multiple Allerg. Extracts Desensitization Injection, Supply Multiple Allerg. Extracts 50487 2008 ISSA CAMPOVERDE received [address] [facility] Spirometry Peak Expiratory Flow Spirometry Peak Expiratory Flow [address] [facility] Desensitization Injection, Supply Multiple Allerg. Extracts Desensitization Injection, Supply Multiple Allerg. Extracts [address] [facility] Desensitization Injection, Supply Multiple Allerg. Extracts Desensitization Injection, Supply Multiple Allerg. Extracts [address] [facility] Spirometry Peak Expiratory Flow Spirometry Peak Expiratory Flow [address] [facility] Desensitization Injection, Supply Multiple Allerg. Extracts Desensitization Injection, Supply Multiple Allerg. Extracts [address] [facility] Desensitization Injection, Supply Multiple Allerg. Extracts Desensitization Injection, Supply Multiple Allerg. Extracts [address] [facility] Spirometry Peak Expiratory Flow Spirometry Peak Expiratory Flow [address] [facility] Desensitization Injection, Supply Multiple Allerg. Extracts Desensitization Injection, Supply Multiple Allerg. Extracts 084[address] [facility] Spirometry Peak Expiratory Flow Spirometry Peak Expiratory Flow 20158 [address] [facility] Spirometry Spirometry [address] [facility] Injection, methylprednisolone acetate, 40 mg [address] [facility] Spirometry Spirometry 93131 2008 PEREIRA, FELICIANO H [facility] Pulmonary Function Tests Pulmonary Function Tests 16666 2008 PEREIRA, FELICIANO H [facility] Desensitization Injection, Supply Multiple Allerg. Extracts Desensitization Injection, Supply Multiple Allerg. Extracts 20405 2008 ISSA CAMPOVERDE [address] [facility] Spirometry Peak Expiratory Flow Spirometry Peak Expiratory Flow [address] [facility] Desensitization Injection, Supply Multiple Allerg. Extracts Desensitization Injection, Supply Multiple Allerg. Extracts 90001 2008 ISSA CAMPOVERDE received [address] [facility] Spirometry Peak Expiratory Flow Spirometry Peak Expiratory Flow [address] [facility] Spirometry Peak Expiratory Flow Spirometry Peak Expiratory Flow [address] [facility] Desensitization Supervision - Multiple Extract Injections Desensitization Supervision - Multiple Extract Injections [address] [facility] Desensitization Injection, Supply Multiple Allerg. Extracts Desensitization Injection, Supply Multiple Allerg. Extracts [address] [facility] Spirometry Peak Expiratory Flow Spirometry Peak Expiratory Flow [address] [facility] Desensitization Injection, Supply Multiple Allerg. Extracts Desensitization Injection, Supply Multiple Allerg. Extracts [address] [facility] Spirometry Peak Expiratory Flow Spirometry Peak Expiratory Flow [address] [facility] Spirometry Peak Expiratory Flow Spirometry Peak Expiratory Flow 97278 2007 IRAIS HANSEN DoD Desensitization Injection, Supply Multiple Allerg. Extracts Desensitization Injection, Supply Multiple Allerg. Extracts 31858 2007 IRAIS HANSEN received 3 allergen injections DoD Spirometry Peak Expiratory Flow Spirometry Peak Expiratory Flow 99917 2007 TYRONE IRAIS Lilliana DoD Desensitization Injection, Supply Multiple Allerg. Extracts Desensitization Injection, Supply Multiple Allerg. Extracts 87407 2007 IRAIS HANSEN received 3 allergen injections DoD Desensitization Injection, Supply Multiple Allerg. Extracts Desensitization Injection, Supply Multiple Allerg. Extracts 11664 2007 IRAIS HANSEN received 3 allergen injections DoD Spirometry Peak Expiratory Flow Spirometry Peak Expiratory Flow 34241 2007 TYRONEIRAIS DoD Desensitization Supervision - Multiple Extract Injections Desensitization Supervision - Multiple Extract Injections [address] [facility] Spirometry Peak Expiratory Flow Spirometry Peak Expiratory Flow [address] [facility] Desensitization Supervision - Multiple Extract Injections Desensitization Supervision - Multiple Extract Injections 7[address] [facility] Spirometry Peak Expiratory Flow Spirometry Peak Expiratory Flow [address] [facility] Spirometry Peak Expiratory Flow Spirometry Peak Expiratory Flow 99220 2007 HANSENIRAIS DoD Desensitization Injection, Supply Multiple Allerg. Extracts Desensitization Injection, Supply Multiple Allerg. Extracts 77194 2007 IRAIS HANSEN received 3 allergen injections DoD Desensitization Supervision - Multiple Extract Injections Desensitization Supervision - Multiple Extract Injections [address] [facility] Spirometry Peak Expiratory Flow Spirometry Peak Expiratory Flow [address] [facility] Desensitization Supervision - Multiple Extract Injections Desensitization Supervision - Multiple Extract Injections [address] [facility] Spirometry Peak Expiratory Flow Spirometry Peak Expiratory Flow [address] [facility] Desensitization Supervision - Multiple Extract Injections Desensitization Supervision - Multiple Extract Injections [address] [facility] Spirometry Peak Expiratory Flow Spirometry Peak Expiratory Flow [address] [facility] Spirometry Peak Expiratory Flow Spirometry Peak Expiratory Flow 04458 2007 HANSENIRAIS DoD Desensitization Injection, Supply Multiple Allerg. Extracts Desensitization Injection, Supply Multiple Allerg. Extracts 73146 2007 TYRONE IRAIS Lilliana received 3 allergen injections DoD Desensitization Injection, Supply Multiple Allerg. Extracts Desensitization Injection, Supply Multiple Allerg. Extracts 63251 2007 ISSA CAMPOVERDE received 3 allergen injections DoD Spirometry Peak Expiratory Flow Spirometry Peak Expiratory Flow [address] [facility] Desensitization Supervision - Multiple Extract Injections Desensitization Supervision - Multiple Extract Injections [address] [facility] Spirometry Peak Expiratory Flow Spirometry Peak Expiratory Flow 32600 2007 ISSA CAMPOVERDE DoD Desensitization Injection, Supply Multiple Allerg. Extracts Desensitization Injection, Supply Multiple Allerg. Extracts 72560 2007 IRAIS HANSEN received 3 allergen injections DoD Spirometry Peak Expiratory Flow Spirometry Peak Expiratory Flow 62878 2007 HANSENIRAIS DoD Spirometry Peak Expiratory Flow Spirometry Peak Expiratory Flow 90867 2007 IRAIS HANSEN DoD Desensitization Injection, Supply Multiple Allerg. Extracts Desensitization Injection, Supply Multiple Allerg. Extracts 89108 2007 HANSENIRAIS received 3 allergen injections DoD Spirometry Peak Expiratory Flow Spirometry Peak Expiratory Flow 54477 2007 IRAIS HANSEN DoD Desensitization Injection, Supply Multiple Allerg. Extracts Desensitization Injection, Supply Multiple Allerg. Extracts 82309 2007 IRAIS HANSEN received 3 allergen injections DoD Spirometry Peak Expiratory Flow Spirometry Peak Expiratory Flow 95081 2007 IRAIS HANSEN DoD Desensitization Injection, Supply Multiple Allerg. Extracts Desensitization Injection, Supply Multiple Allerg. Extracts 56820 2007 IRAIS HANSEN received 3 allergen injections DoD Spirometry Peak Expiratory Flow Spirometry Peak Expiratory Flow 54949 2007 IRAIS HANSEN DoD Desensitization Injection, Supply Multiple Allerg. Extracts Desensitization Injection, Supply Multiple Allerg. Extracts 30626 2007 IRAIS HANSEN received 3 allergen injections DoD Spirometry Peak Expiratory Flow Spirometry Peak Expiratory Flow 65507 2007 IRAIS HANSEN DoD Desensitization Injection, Supply Multiple Allerg. Extracts Desensitization Injection, Supply Multiple Allerg. Extracts 99375 2007 IRAIS HANSEN received 3 allergen injections DoD Spirometry Peak Expiratory Flow Spirometry Peak Expiratory Flow 17958 2007 IRAIS HANSEN DoD Desensitization Injection, Supply Multiple Allerg. Extracts Desensitization Injection, Supply Multiple Allerg. Extracts 14395 2007 IRAIS HANSEN received 3 allergen injections DoD Spirometry Peak Expiratory Flow Spirometry Peak Expiratory Flow 88465 2007 IRAIS HANSEN DoD Desensitization Injection, Supply Multiple Allerg. Extracts Desensitization Injection, Supply Multiple Allerg. Extracts 75538 2007 IRAIS HANSEN received 3 allergen injections DoD Spirometry Peak Expiratory Flow Spirometry Peak Expiratory Flow 62755 2007 TYRONE IRAIS Lilliana DoD Desensitization Injection, Supply Multiple Allerg. Extracts Desensitization Injection, Supply Multiple Allerg. Extracts 48842 2007 IRAIS HANSEN received 3 allergen injections DoD Spirometry Peak Expiratory Flow Spirometry Peak Expiratory Flow 73621 2007 TYRONE IRAIS Lilliana DoD Desensitization Injection, Supply Multiple Allerg. Extracts Desensitization Injection, Supply Multiple Allerg. Extracts 70396 2007 IRAIS HANSEN received 3 allergen injections DoD Spirometry Peak Expiratory Flow Spirometry Peak Expiratory Flow 77447 2007 IRAIS HANSEN Lilliana DoD Desensitization Injection, Supply Multiple Allerg. Extracts Desensitization Injection, Supply Multiple Allerg. Extracts 73524 2007 IRAIS HANSEN Lilliana received 3 allergen injections DoD Spirometry Peak Expiratory Flow Spirometry Peak Expiratory Flow 65386 2007 TYRONE IRAIS D DoD Desensitization Injection, Supply Multiple Allerg. Extracts Desensitization Injection, Supply Multiple Allerg. Extracts 488902007 IRAIS HANSEN Lilliana received 3 allergen injections DoD Spirometry Peak Expiratory Flow Spirometry Peak Expiratory Flow 04843 2007 TYRONE IRAIS Lilliana DoD Desensitization Injection, Supply Multiple Allerg. Extracts Desensitization Injection, Supply Multiple Allerg. Extracts 54412 2007 IRAIS HANSEN Lilliana received 3 allergen injections DoD Spirometry Peak Expiratory Flow Spirometry Peak Expiratory Flow 26187 2007 TYRONE IRAIS Lilliana DoD Desensitization Injection, Supply Multiple Allerg. Extracts Desensitization Injection, Supply Multiple Allerg. Extracts 61824 2007 TYRONE IRAIS Lilliana received 3 allergen injections DoD Spirometry Peak Expiratory Flow Spirometry Peak Expiratory Flow 93388 2007 TYRONE IRAIS D DoD Desensitization Injection, Supply Multiple Allerg. Extracts Desensitization Injection, Supply Multiple Allerg. Extracts 37203 2007 IRAIS HANSEN Lilliana received 3 allergen injections DoD Desensitization Injection, Supply Multiple Allerg. Extracts Desensitization Injection, Supply Multiple Allerg. Extracts 62250 2007 AMY RAY 3 injections given DoD Spirometry Peak Expiratory Flow Spirometry Peak Expiratory Flow 97321 2007 AMY RAY DoD Spirometry Spirometry 26539 2007 AMY RAY PFT Normal DoD Spirometry Peak Expiratory Flow Spirometry Peak Expiratory Flow 13076 2007 IRAIS HANSEN DoD Desensitization Injection, Supply Multiple Allerg. Extracts Desensitization Injection, Supply Multiple Allerg. Extracts 60750 2007 IRAIS HANSEN received 3 allergen injections DoD Desensitization Injection, Supply Multiple Allerg. Extracts Desensitization Injection, Supply Multiple Allerg. Extracts 04876 2007 IRAIS HANSEN received 3 allergen injections DoD Desensitization Injection, Supply Multiple Allerg. Extracts Desensitization Injection, Supply Multiple Allerg. Extracts [address] [facility] Pulmonary Function Tests Pulmonary Function Tests 36791 2007 KATY VASQUEZ before and after atervent DoD Desensitization Injection, Supply Multiple Allerg. Extracts Desensitization Injection, Supply Multiple Allerg. Extracts [address] [facility] Allergen Desensitization Allergen Desensitization [address] [facility] Spirometry Peak Expiratory Flow Spirometry Peak Expiratory Flow [address] [facility] DTaP Vaccine DTaP Vaccine [address] [facility] Pneumococcal Polysaccharide Vaccine (Age 2Y+) Pneumococcal Polysaccharide Vaccine (Age 2Y+) [address] [facility] Spirometry Spirometry 68074 2007 KATY VASQUEZ before and after albuterol [facility] Allergy Percutaneous tests - allergenic extracts [address] [facility] Spirometry Spirometry [address] [facility] Inhalation Treatment (Nonpre urized) Inhalation Treatment (Nonpressurized) [address] [facility] Screening papanicolaou smear; obtaining, preparing and conveyance of cervical or vaginal smear to laboratory [address] [facility] Pulse Oximetry Pulse Oximetry [address] [facility] Desensitization Supervision - Multiple Extract Injections Desensitization Supervision - Multiple Extract Injections [address] [facility] Pulmonary Function VC (% Predicted Normal) Pulmonary Function VC (% Predicted Normal) 05811 2015 IRAIS HANSEN Immunization Administration By Injection, One Vaccine Immunization Administration By Injection, One Vaccine [address] [facility] Influenza Virus Vaccine Inactivated, Adjuvanted, For IM Use Influenza Virus Vaccine Inactivated, Adjuvanted, For IM Use 91738 2015 IRAIS HANSEN Influenza, Trivalent, Adjuvanted; Series #: 1; .5 mL; IM; Right Arm; Mfg: [employer]; Lot: [id number]; VIS given (Linda: 10/26/14). DoD Desensitization Supervision - Multiple Extract Injections Desensitization Supervision - Multiple Extract Injections 12770 2015 KATY VASQUEZ [address] [facility] Pulmonary Function Tests Pulmonary Function Tests [address] [facility] Desensitization Supervision - Multiple Extract Injections Desensitization Supervision - Multiple Extract Injections 66444 2015 IRAIS HANSEN Pulmonary Function VC (% Predicted Normal) Pulmonary Function VC (% Predicted Normal) [address] [facility] Desensitization Supervision - Multiple Extract Injections Desensitization Supervision - Multiple Extract Injections 50724 2015 PRICE LION sub-q injections to upper arms 0.5ml red t-w-g to left upper and 0.5ml m-cr to right. [facility] Pulmonary Function VC (% Predicted Normal) Pulmonary Function VC (% Predicted Normal) [address] [facility] Desensitization Supervision - Multiple Extract Injections Desensitization Supervision - Multiple Extract Injections 42795 2015 IRAIS HANSEN Pulmonary Function VC (% Predicted Normal) Pulmonary Function VC (% Predicted Normal) [address] [facility] Desensitization Supervision - Multiple Extract Injections Desensitization Supervision - Multiple Extract Injections 49400 2015 IRAIS HANSEN Pulmonary Function VC (% Predicted Normal) Pulmonary Function VC (% Predicted Normal) [address] [facility] Desensitization Supervision - Multiple Extract Injections Desensitization Supervision - Multiple Extract Injections [address] [facility] Pulmonary Function VC (% Predicted Normal) Pulmonary Function VC (% Predicted Normal) [address] [facility] Desensitization Supervision - Multiple Extract Injections Desensitization Supervision - Multiple Extract Injections 27841 2015 IRAIS HANSEN Pulmonary Function VC (% Predicted Normal) Pulmonary Function VC (% Predicted Normal) 02484 2015 IRAIS HANSEN Pulmonary Function VC (% Predicted Normal) Pulmonary Function VC (% Predicted Normal) 52628 2015 FELIPE FORBES Desensitization Supervision - Multiple Extract Injections Desensitization Supervision - Multiple Extract Injections 34143 2015 FELIPE FORBES Pulse Oximetry Pulse Oximetry 21292 2015 RADHAYISEL Pulmonary Function VC (% Predicted Normal) Pulmonary Function VC (% Predicted Normal) 81833 2015 FELIPE FORBES Desensitization Supervision - Multiple Extract Injections Desensitization Supervision - Multiple Extract Injections 42358 2015 FELIPE FORBES Desensitization Supervision - Multiple Extract Injections Desensitization Supervision - Multiple Extract Injections 47847 2015 IRAIS HANSEN Pulmonary Function VC (% Predicted Normal) Pulmonary Function VC (% Predicted Normal) 95722 2015 IRAIS HANSEN Desensitization Supervision - Multiple Extract Injections Desensitization Supervision - Multiple Extract Injections 52023 2015 PRICE LION Pulmonary Function VC (% Predicted Normal) Pulmonary Function VC (% Predicted Normal) 85139 2015 PRICE LION Desensitization Supervision - Multiple Extract Injections Desensitization Supervision - Multiple Extract Injections 04862 2015 PRICE LION Pulmonary Function VC (% Predicted Normal) Pulmonary Function VC (% Predicted Normal) 50693 2015 PRICE LION Pulmonary Function VC (% Predicted Normal) Pulmonary Function VC (% Predicted Normal) 01036 2015 FELIPE FORBES Desensitization Supervision - Multiple Extract Injections Desensitization Supervision - Multiple Extract Injections 47631 2015 FELIPE FORBES Desensitization Supervision - Multiple Extract Injections Desensitization Supervision - Multiple Extract Injections 94907 2014 PRICE LION Pulmonary Function VC (% Predicted Normal) Pulmonary Function VC (% Predicted Normal) 69242 2014 PRICE LION Vaccines Vaccines 35213 2014 FELIPE FORBES Influenza Split (Injectable - preservative free); Series #: 1; .5 mL; IM; Left Arm; [facility]: [employer].; Lot: [id number]; VIS given (Linda: 10/26/2014). DoD Immunization Administration By Injection, One Vaccine Immunization Administration By Injection, One Vaccine 65293 2014 FELIPE FORBES Desensitization Supervision - Multiple Extract Injections Desensitization Supervision - Multiple Extract Injections 00194 2014 IRAIS HANSEN Pulmonary Function VC (% Predicted Normal) Pulmonary Function VC (% Predicted Normal) 67139 2014 IRAIS HANSEN Desensitization Supervision - Multiple Extract Injections Desensitization Supervision - Multiple Extract Injections 17891 2014 PRICE LION Pulmonary Function VC (% Predicted Normal) Pulmonary Function VC (% Predicted Normal) 52012 2014 PRICE LION Desensitization Supervision - Multiple Extract Injections Desensitization Supervision - Multiple Extract Injections 77160 2014 IRAIS HANSEN Pulmonary Function VC (% Predicted Normal) Pulmonary Function VC (% Predicted Normal) 97471 2014 IRAIS HANSEN Desensitization Supervision - Multiple Extract Injections Desensitization Supervision - Multiple Extract Injections 90362 2014 IRAIS HANSEN Pulmonary Function VC (% Predicted Normal) Pulmonary Function VC (% Predicted Normal) 59330 2014 IRAIS HANSEN Desensitization Supervision - Multiple Extract Injections Desensitization Supervision - Multiple Extract Injections 56060 2014 PRICE LION Pulmonary Function VC (% Predicted Normal) Pulmonary Function VC (% Predicted Normal) 75735 2014 PRICE LION Desensitization Supervision - Multiple Extract Injections Desensitization Supervision - Multiple Extract Injections 62947 2014 IRAIS HANSEN Pulmonary Function VC (% Predicted Normal) Pulmonary Function VC (% Predicted Normal) 69072 2014 IRAIS HANSEN Desensitization Supervision - Multiple Extract Injections Desensitization Supervision - Multiple Extract Injections 52244 2014 PRICE LION Pulmonary Function VC (% Predicted Normal) Pulmonary Function VC (% Predicted Normal) 06207 2014 PRICE LION Desensitization Supervision - Multiple Extract Injections Desensitization Supervision - Multiple Extract Injections 31884 2014 IRAIS HANSEN Pulmonary Function VC (% Predicted Normal) Pulmonary Function VC (% Predicted Normal) 32917 2014 IRAIS HANSEN Pulmonary Function VC (% Predicted Normal) Pulmonary Function VC (% Predicted Normal) [address] [facility] Desensitization Supervision - Multiple Extract Injections Desensitization Supervision - Multiple Extract Injections [address] [facility] Respiratory Equip IPPB Related Equip Nebulizer Respiratory Equip IPPB Related Equip Nebulizer 98772 [address] [facility] Pulmonary Function Tests Pulmonary Function Tests 50581 2014 KATY VASQUEZ pre and post albuterol inhaler and post albuterol neb [facility] Pulmonary Function VC (% Predicted Normal) Pulmonary Function VC (% Predicted Normal) 72726 2014 ANA LAURA PAZ Peak Flow [facility] Desensitization Supervision - Multiple Extract Injections Desensitization Supervision - Multiple Extract Injections [address] [facility] Pulmonary Function VC (% Predicted Normal) Pulmonary Function VC (% Predicted Normal) [address] [facility] Desensitization Supervision - Multiple Extract Injections Desensitization Supervision - Multiple Extract Injections 23773 2014 ANA LAURA PAZ Desensitization Supervision, 1+ Antigens, 2+ Mult Dose Vials Desensitization Supervision, 1+ Antigens, 2+ Mult Dose Vials 19939 2014 WARREN PHIPPS Allergen extract prescription reviewed and are of appropriate composition and concentration. Prescription order entered into the extract lab management system. [facility] Pulmonary Function VC (% Predicted Normal) Pulmonary Function VC (% Predicted Normal) 8[address] [facility] Desensitization Supervision - Multiple Extract Injections Desensitization Supervision - Multiple Extract Injections 5[address] [facility] Injection, methylprednisolone acetate, 80 mg [address] [facility] Desensitization Supervision - Multiple Extract Injections Desensitization Supervision - Multiple Extract Injections 49667 2013 ELDER JACK Red Vial, 0.50ml SQ in left upper posterior arm, (m, Cr, ) Red Vial, 0.50ml SQ in right upper posterior arm, (t, g, w) [facility] Pulmonary Function VC (% Predicted Normal) Pulmonary Function VC (% Predicted Normal) 12106 [address] [facility] Pulmonary Function VC (% Predicted Normal) Pulmonary Function VC (% Predicted Normal) [address] [facility] Desensitization Supervision - Multiple Extract Injections Desensitization Supervision - Multiple Extract Injections [address] [facility] Desensitization Supervision - Multiple Extract Injections Desensitization Supervision - Multiple Extract Injections [address] [facility] Pulmonary Function VC (% Predicted Normal) Pulmonary Function VC (% Predicted Normal) [address] [facility] Injection, triamcinolone acetonide, not otherwise specified, 10 mg 2013 COMFORT HOOPER MED ISSUED AND ADMINISTERED IN CLINIC [facility] Physician Supervised Injection Intramuscular Physician Supervised Injection Intramuscular [address] [facility] Pulse Oximetry Pulse Oximetry 89286 2013 COMFORT HOOPER DONE IN CLINIC DoD Respiratory Equip IPPB Nebulizer Ultrasonic Respiratory Equip IPPB Nebulizer Ultrasonic 39409 2013 COMFORT HOOPER Done in clinic - started @ 0905 - albuterol/atrov ent via N. [facility] Desensitization Supervision - Multiple Extract Injections Desensitization Supervision - Multiple Extract Injections 14927 2013 ELDER JACK RED VIAL 0.50ML SQ IN RIGHT UPPER POSTERIOR ARM, (M, CR) RED VIAL 0.50ML SQ IN LEFT UPPER POSTERIOR ARM, (T, G, W) [facility] Pulmonary Function VC (% Predicted Normal) Pulmonary Function VC (% Predicted Normal) 19926 2013 ELDER JACK [address] [place] [address] Desensitization Supervision - Multiple Extract Injections Desensitization Supervision - Multiple Extract Injections [address] [facility] Pulmonary Function VC (% Predicted Normal) Pulmonary Function VC (% Predicted Normal) [address] [facility] Desensitization Supervision - Multiple Extract Injections Desensitization Supervision - Multiple Extract Injections [address] [facility] Pulmonary Function VC (% Predicted Normal) Pulmonary Function VC (% Predicted Normal) [address] [facility] Pulmonary Function VC (% Predicted Normal) Pulmonary Function VC (% Predicted Normal) 40538 2013 PRICE LION Desensitization Supervision - Multiple Extract Injections Desensitization Supervision - Multiple Extract Injections 81323 2013 PRICE LION Pulmonary Function VC (% Predicted Normal) Pulmonary Function VC (% Predicted Normal) 47437 2013 PRICE LION Desensitization Supervision - Multiple Extract Injections Desensitization Supervision - Multiple Extract Injections 12490 2013 PRICE LION Pulmonary Function VC (% Predicted Normal) Pulmonary Function VC (% Predicted Normal) 74922 2013 ANA LAURA PAZ Desensitization Supervision - Multiple Extract Injections Desensitization Supervision - Multiple Extract Injections [address] [facility] Pulmonary Function VC (% Predicted Normal) Pulmonary Function VC (% Predicted Normal) [address] [facility] Desensitization Supervision - Multiple Extract Injections Desensitization Supervision - Multiple Extract Injections [address] [facility] Desensitization Supervision - Multiple Extract Injections Desensitization Supervision - Multiple Extract Injections 13628 2013 IRAIS HANSEN Pulmonary Function VC (% Predicted Normal) Pulmonary Function VC (% Predicted Normal) [address] [facility] Desensitization Supervision - Multiple Extract Injections Desensitization Supervision - Multiple Extract Injections 74[address] [facility] Pulmonary Function VC (% Predicted Normal) Pulmonary Function VC (% Predicted Normal) 17323 2013 ANA LAURA PAZ Peak Flow= 450 [facility] Pulmonary Function VC (% Predicted Normal) Pulmonary Function VC (% Predicted Normal) 65765 2013 PRICE LION Desensitization Supervision - Multiple Extract Injections Desensitization Supervision - Multiple Extract Injections 12727 2013 PRICE LION Desensitization Supervision - Multiple Extract Injections Desensitization Supervision - Multiple Extract Injections 17146 [address] [facility] Pulmonary Function VC (% Predicted Normal) Pulmonary Function VC (% Predicted Normal) 38316 2013 ANA LAURA PAZ Peak Flow = 430 [facility] Pulmonary Function VC (% Predicted Normal) Pulmonary Function VC (% Predicted Normal) 72509 2013 ANA LAURA PAZ Desensitization Supervision - Multiple Extract Injections Desensitization Supervision - Multiple Extract Injections 20535 [address] [facility] Pulmonary Function VC (% Predicted Normal) Pulmonary Function VC (% Predicted Normal) [address] [facility] Desensitization Supervision - Multiple Extract Injections Desensitization Supervision - Multiple Extract Injections [address] [facility] Spirometry Peak Expiratory Flow Spirometry Peak Expiratory Flow 30767 2010 IRAIS HANSEN Desensitization Injection, Supply Multiple Allerg. Extracts Desensitization Injection, Supply Multiple Allerg. Extracts [address] [facility] Screening papanicolaou smear; obtaining, preparing and conveyance of cervical or vaginal smear to laboratory [address] [facility] Spirometry Peak Expiratory Flow Spirometry Peak Expiratory Flow 22476 2010 LIONPRICE DoD Desensitization Injection, Supply Multiple Allerg. Extracts Desensitization Injection, Supply Multiple Allerg. Extracts 12914 2010 AMISHAPRICE DoD Desensitization Injection, Supply Multiple Allerg. Extracts Desensitization Injection, Supply Multiple Allerg. Extracts [id number] VIDA OLIVAS 0.50 ml red vial X 3 sub-q, two to L lateral arm, one to R lateral arm. [facility] Spirometry Peak Expiratory Flow Spirometry Peak Expiratory Flow 01545 2010 VIDA OLIVAS rf=855 DoD Desensitization Injection, Supply Multiple Allerg. Extracts Desensitization Injection, Supply Multiple Allerg. Extracts [id number] HOLLI LOPEZ Administered 0.5 ml red vial SQ to L upper arm and 0.5 ml red vial SQ x2 to R upper arm, pt tolerated well. [facility] Spirometry Peak Expiratory Flow Spirometry Peak Expiratory Flow 77185 2010 HOLLI LOPEZ PF 400 DoD Spirometry Peak Expiratory Flow Spirometry Peak Expiratory Flow 40713 2010 IRAIS HANSEN DoD Desensitization Injection, Supply Multiple Allerg. Extracts Desensitization Injection, Supply Multiple Allerg. Extracts 338122010 IRAIS HANSEN DoD Desensitization Injection, Supply Multiple Allerg. Extracts Desensitization Injection, Supply Multiple Allerg. Extracts [id number] ISSA CAMPOVERDE SQ x 3 - 0.40 ml EA, RU / RL and LT arm respectively, RED vial [facility] Spirometry Peak Expiratory Flow Spirometry Peak Expiratory Flow 53226 2010 ISSA CAMPOVERDE PF = 450 DoD Spirometry Peak Expiratory Flow Spirometry Peak Expiratory Flow 10844 2010 IRAIS HANSEN DoD Desensitization Injection, Supply Multiple Allerg. Extracts Desensitization Injection, Supply Multiple Allerg. Extracts 330892010 IRAIS HANS[address] [facility] Spirometry Peak Expiratory Flow Spirometry Peak Expiratory Flow 59589 2010 IRAIS HANSEN DoD Desensitization Injection, Supply Multiple Allerg. Extracts Desensitization Injection, Supply Multiple Allerg. Extracts [address] [facility] Spirometry Peak Expiratory Flow Spirometry Peak Expiratory Flow 89076 2010 IRAIS HANSEN DoD Desensitization Injection, Supply Multiple Allerg. Extracts Desensitization Injection, Supply Multiple Allerg. Extracts 69327 2010 HANSENLOVELY HURLEYELA Lilliana DoD Spirometry Peak Expiratory Flow Spirometry Peak Expiratory Flow 58256 2010 HANSEN IRAIS D DoD Desensitization Injection, Supply Multiple Allerg. Extracts Desensitization Injection, Supply Multiple Allerg. Extracts 69011 2010 TYRONE IRAIS D DoD Desensitization Injection, Supply Multiple Allerg. Extracts Desensitization Injection, Supply Multiple Allerg. Extracts [id number] PRICE LION injection to bilat upper arms x2 to left arm DoD Spirometry Spirometry 62085 2010 PRICE LION pt goal >/= 360, goal met 450 DoD Spirometry Peak Expiratory Flow Spirometry Peak Expiratory Flow 49917 2010 IRAIS HANSEN DoD Desensitization Injection, Supply Multiple Allerg. Extracts Desensitization Injection, Supply Multiple Allerg. Extracts [id number] LOVELY HANSENELA Lilliana DoD Desensitization Injection, Supply Multiple Allerg. Extracts Desensitization Injection, Supply Multiple Allerg. Extracts [id number] HOLLI LOPEZ Administered 0.35 ml red vial SQ to R upper arm and 0.35 ml red vial SQ x2 to L upper arm, pt tolerated well. DoD Spirometry Peak Expiratory Flow Spirometry Peak Expiratory Flow 79777 2010 HOLLI LOPEZ PF 450 DoD Desensitization Injection, Supply Multiple Allerg. Extracts Desensitization Injection, Supply Multiple Allerg. Extracts [id number] VIDA OLIVAS 0.30 ml red vial X 3 sub-q, two to R lateral arm, one to L lateral arm. DoD Spirometry Peak Expiratory Flow Spirometry Peak Expiratory Flow 42915 2010 VIDA OLIVAS ic=624 DoD Spirometry Peak Expiratory Flow Spirometry Peak Expiratory Flow 13461 2010 IRAIS HANSEN DoD Desensitization Injection, Supply Multiple Allerg. Extracts Desensitization Injection, Supply Multiple Allerg. Extracts [id number] LOVELY HANSENELA Lilliana DoD Spirometry Peak Expiratory Flow Spirometry Peak Expiratory Flow 04845 2010 ISSA CAMPOVERDE PF = 430 DoD Desensitization Injection, Supply Multiple Allerg. Extracts Desensitization Injection, Supply Multiple Allerg. Extracts [id number] ISSA CAMPOVERDE allergen inj x 3 SQ -- 0.50 cc EA, RED vial DoD Desensitization Injection, Supply Multiple Allerg. Extracts Desensitization Injection, Supply Multiple Allerg. Extracts [address] [facility] Spirometry Peak Expiratory Flow Spirometry Peak Expiratory Flow 13803 2010 IRAIS HANSEN DoD Desensitization Injection, Supply Multiple Allerg. Extracts Desensitization Injection, Supply Multiple Allerg. Extracts 27426 2010 VIDA OLIVAS 0.50 ml red vial X 3 sub-q, two to R lateral arm, one to L lateral arm. [facility] Spirometry Peak Expiratory Flow Spirometry Peak Expiratory Flow 59929 2010 VIDA OLIVAS YL=591 [facility] Pulmonary Function Tests Flow Volume Loop Pulmonary Function Tests Flow Volume Loop 04085 2010 KATY VASQUEZ ANNUAL EVALUATION - COMPARISON FLOW VOLUME LOOP DoD Spirometry Peak Expiratory Flow Spirometry Peak Expiratory Flow 25070 2010 KATY VASQUEZ DoD Desensitization Injection, Supply Multiple Allerg. Extracts Desensitization Injection, Supply Multiple Allerg. Extracts [address] [facility] Desensitization Injection, Supply Multiple Allerg. Extracts Desensitization Injection, Supply Multiple Allerg. Extracts [address] [facility] Allergen Desensitization Allergen Desensitization [address] [facility] Spirometry Spirometry 13993 2009 PRICE LION pt goal >/= 360, results 430. DoD Desensitization Injection, Supply Multiple Allerg. Extracts Desensitization Injection, Supply Multiple Allerg. Extracts [address] [facility] Spirometry Peak Expiratory Flow Spirometry Peak Expiratory Flow [address] [facility] Desensitization Injection, Supply Multiple Allerg. Extracts Desensitization Injection, Supply Multiple Allerg. Extracts 47141 2009 VIDA OLIVAS Pt. education provided about s/sx adverse reactions. Pt. verbalized understanding. [facility] Spirometry Peak Expiratory Flow Spirometry Peak Expiratory Flow 80112 2009 VIDA OLIVAS DoD Desensitization Injection, Supply Multiple Allerg. Extracts Desensitization Injection, Supply Multiple Allerg. Extracts 13273 2009 VIDA OLIVAS Pt. education provided about /sx adverse reactions. Pt. verbalized understanding. [facility] Spirometry Peak Expiratory Flow Spirometry Peak Expiratory Flow 95657 2009 VIDA OLIVAS DoD Desensitization Injection, Supply Multiple Allerg. Extracts Desensitization Injection, Supply Multiple Allerg. Extracts 02016 2009 VIDA OLIVAS Pt. education provided about s/sx adverse reactions. Pt. verbalized undetstanding. [facility] Spirometry Peak Expiratory Flow Spirometry Peak Expiratory Flow 37530 2009 VIDA OLIVAS DoD Desensitization Injection, Supply Multiple Allerg. Extracts Desensitization Injection, Supply Multiple Allerg. Extracts [id number] VIDA OLIVAS Pt. education provided about s/sx adverse readtions. Pt. verbalized understanding. [facility] Spirometry Peak Expiratory Flow Spirometry Peak Expiratory Flow 76634 2009 VIDA OLIVAS DoD Desensitization Injection, Supply Multiple Allerg. Extracts Desensitization Injection, Supply Multiple Allerg. Extracts [id number] VIDA OLIVAS Pt. education provided about s/sx adverse reactions. Pt. verbalized understanding. [facility] Spirometry Peak Expiratory Flow Spirometry Peak Expiratory Flow [address] [facility] Spirometry Peak Expiratory Flow Spirometry Peak Expiratory Flow 90870 2009 ISSA CAMPOVERDE DoD Desensitization Injection, Supply Multiple Allerg. Extracts Desensitization Injection, Supply Multiple Allerg. Extracts 2009 ISSA CAMPOVERDE Three (3) injections SQ -- 0.35 cc EA RED vial DoD Desensitization Injection, Supply Multiple Allerg. Extracts Desensitization Injection, Supply Multiple Allerg. Extracts [id number] HOLLI LOPEZ N [facility] Spirometry Peak Expiratory Flow Spirometry Peak Expiratory Flow [address] [facility] Desensitization Injection, Supply Multiple Allerg. Extracts Desensitization Injection, Supply Multiple Allerg. Extracts 409[address] [facility] Spirometry Peak Expiratory Flow Spirometry Peak Expiratory Flow [address] [facility] Desensitization Injection, Supply Multiple Allerg. Extracts Desensitization Injection, Supply Multiple Allerg. Extracts 666592009 HOLLI LOPEZ N [facility] Spirometry Peak Expiratory Flow Spirometry Peak Expiratory Flow 19958 [address] [facility] Spirometry Peak Expiratory Flow Spirometry Peak Expiratory Flow 89488 2009 HANSEN, IRAIS D DoD Desensitization Injection, Supply Multiple Allerg. Extracts Desensitization Injection, Supply Multiple Allerg. Extracts [id number] HANSEN, IRAIS D DoD Desensitization Injection, Supply Multiple Allerg. Extracts Desensitization Injection, Supply Multiple Allerg. Extracts 496262009 VIDA OLIVAS Pt. education provided about /s/sx adverse reactions. Pt. verbalized undrstanding. [facility] Spirometry Peak Expiratory Flow Spirometry Peak Expiratory Flow 37633 2009 ISSA CAMPOVERDE DoD Desensitization Injection, Supply Multiple Allerg. Extracts Desensitization Injection, Supply Multiple Allerg. Extracts 11597 2009 ISSA CAMPOVERDE Three (3) injections administered SQ -- 0.30 cc RED vial RT arm; 0.30 cc RED vial DUKE arm; 0.30 cc RED vial LL arm. DoD Desensitization Injection, Supply Multiple Allerg. Extracts Desensitization Injection, Supply Multiple Allerg. Extracts 77708 2009 VIDA OLIVAS Pt. education provided about s/sx adverse reactions. Pt. verbalized understanding. DoD Spirometry Peak Expiratory Flow Spirometry Peak Expiratory Flow 81553 2009 VIDA OLIVAS DoD Desensitization Injection, Supply Multiple Allerg. Extracts Desensitization Injection, Supply Multiple Allerg. Extracts [address] [facility] Spirometry Peak Expiratory Flow Spirometry Peak Expiratory Flow 13725 2009 HOLLI LOPEZ DoD Desensitization Injection, Supply Multiple Allerg. Extracts Desensitization Injection, Supply Multiple Allerg. Extracts 49446 2009 VIDA OLIVAS Pt. education provided about s/sx adverse reactions. Pt. verbalized understanding. [facility] Spirometry Peak Expiratory Flow Spirometry Peak Expiratory Flow 71900 2009 IRAIS HANSEN DoD Desensitization Injection, Supply Multiple Allerg. Extracts Desensitization Injection, Supply Multiple Allerg. Extracts 69972 2009 IRAIS HANSEN received 3 allergen injections DoD Pulse Oximetry Pulse Oximetry [address] [facility] Spirometry Peak Expiratory Flow Spirometry Peak Expiratory Flow 08420 2009 IRAIS HANSEN DoD Desensitization Injection, Supply Multiple Allerg. Extracts Desensitization Injection, Supply Multiple Allerg. Extracts 94355 2009 IRAIS HANSEN received 3 allergen injections DoD Desensitization Injection, Supply Multiple Allerg. Extracts Desensitization Injection, Supply Multiple Allerg. Extracts 60533 2008 IRAIS HANSEN received 3 allergen injections DoD Pulse Oximetry Pulse Oximetry [address] [facility] Spirometry Peak Expiratory Flow Spirometry Peak Expiratory Flow 83551 2008 DAHIANA POSADA DoD Desensitization Injection, Supply Multiple Allerg. Extracts Desensitization Injection, Supply Multiple Allerg. Extracts 48547 2008 DAHIANA POSADA DoD Desensitization Injection, Supply Multiple Allerg. Extracts Desensitization Injection, Supply Multiple Allerg. Extracts 78345 2008 VIDA OLIVAS Pt. education provided regarding s/sx adverse reactions. Pt. verbalized understanding. [facility] Spirometry Peak Expiratory Flow Spirometry Peak Expiratory Flow [address] [facility] Physician Supervised Injection Subcutaneous Physician Supervised Injection Subcutaneous [address] [facility] Spirometry Peak Expiratory Flow Spirometry Peak Expiratory Flow [address] [facility] Desensitization Injection, Supply Multiple Allerg. Extracts Desensitization Injection, Supply Multiple Allerg. Extracts 33442 2008 TRIPP CAMPOVERDENA Usama Three (3) Injections DoD Desensitization Injection, Supply Multiple Allerg. Extracts Desensitization Injection, Supply Multiple Allerg. Extracts 38213 2008 NIRALI ISSA Forrester THREE (3) INJECTIONS [facility] Spirometry Peak Expiratory Flow Spirometry Peak Expiratory Flow [address] [facility] Spirometry Peak Expiratory Flow Spirometry Peak Expiratory Flow [address] [facility] Desensitization Injection, Supply Multiple Allerg. Extracts Desensitization Injection, Supply Multiple Allerg. Extracts [address] [facility] Occupational Therapy Re-Evaluation Occupational Therapy Re-Evaluation [address] [facility] A isted Exercises For ROM Assisted Exercises For ROM [address] [facility] Modalities Whirlpool Treatment Modalities Whirlpool Treatment [address] [facility] A isted Exercises For ROM Assisted Exercises For ROM [address] [facility] Modalities Whirlpool Treatment Modalities Whirlpool Treatment [address] [facility] Patient Training And Self-Care Skills Patient Training And Self-Care Skills [address] [facility] Occupational Therapy Evaluation Occupational Therapy Evaluation [address] [facility] Spirometry Peak Expiratory Flow Spirometry Peak Expiratory Flow [address] [facility] Social History Combined list of available smoking, [...] at [employer] [facility] [employer] [place] Functional [place] Measurement (FIM) Scale: 1 = Total Assistance (Subject = 0% +), 2 = Maximal Assistance (Subject = 25% +), 3 = Moderate Assistance (Subject = 50% +), 4 = Minimal Assistance (Subject = 75% +), 5 = Supervision, 6 = Modified [place] (Device), 7 = Complete [place] (Timely, Safely). Assessment Date/Time Source Assessment Type Assessment Skill Assessment Score Assessment Details No data available for this section
== END 2024-04-14 02:16 | disposition home or self-care (01) ==
PROVIDERS: Physician Assistant; Emergency Provider Emergency Medicine
DX: J10.1 Influenza due to other identified influenza virus with other respiratory manifestations (principal); Z20.822 Contact with and (suspected) exposure to COVID-19
CPT/HCPCS: 36415; 71045; 80053; 83605; 83735; 85025; 87040; 87637; 96360; 99284; J7030

== ENCOUNTER 2025-03-21 17:37 | Emergency (ER) | payer OTHER, SELFPAY ==
--- NOTE | ~2025-03-21 | XR_ITS ---
EXAMINATION: XR elbow RT min 3V DATE: 03/21/2025 20:26 INDICATION: Fall TECHNIQUE: Anteroposterior, two oblique and lateral views of the right elbow were obtained. COMPARISON: None. FINDINGS: Alignment is normal. No fracture or joint effusion. Joint spaces are normal. Soft tissues are unremarkable. IMPRESSION: 1. Normal right elbow radiographs Reviewed, dictated and finalized at location A. [employer] CONSULTANT
--- NOTE | ~2025-03-21 | XR_ITS ---
EXAMINATION: XR hand RT min 3V, XR wrist RT min 3V DATE: 03/21/2025 20:26 INDICATION: Fall TECHNIQUE: 1. Posteroanterior, ulnar deviation, oblique, and lateral views of the right wrist were obtained. 2. Dorsal palmar, oblique and lateral views of the right hand were obtained. COMPARISON: None. FINDINGS: Alignment of the hand and wrist is normal. No fracture identified. Mild osteoarthritis at the first carpometacarpal, third and fourth metacarpophalangeal and several interphalangeal joints. Soft tissues are unremarkable. IMPRESSION: 1. 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 No acute osseous abnormality. Reviewed, dictated and finalized at location A. KER AND PATCHER IMPRESSION: 1. 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 No acute osseous abnormality.
[2025-03-21 18:11] VITALS: BP 125/82; PULSE 100; RESP 15; TEMP 36.6; O2SAT 98
[2025-03-21 20:11] VITALS: BP 133/94; PULSE 98; RESP 16; O2SAT 99
--- NOTE | 2025-03-21 20:44 | ED.UPPEXIN ---
HPI - Extremity Injury (Upper) General Chief Complaint: Extremity Injury, Upper Stated Complaint: COVID+, fell 2 days ago, RUE pain Time Seen by Provider: 03/21/25 20:19 History of Present Illness HPI narrative: 59-year-old female presenting after she fell 2 days ago. The patient states she fell in her kitchen counter and landed on her right wrist and elbow. She has been having pain for last 2 days but no restricted range of motion. She does have pain and tenderness with some bruising over the dorsum of her right hand on the ulnar aspect as well as the elbow. She also incidentally tested positive for COVID has been dealing with this without any complications. She states her pain is responsive to ibuprofen/Motrin at home. Currently 06/29. No other injuries or any other symptoms at this time. Related Data Home Medications ?Medication ?Instructions ?Recorded ?Confirmed ?Last Taken ?Type B Complex-Vitamin B12 See Rx Instructions PO DAILY 10/10/23 02/22/25 Unknown History Calcium 600 600 mg PO DAILY 10/10/23 01/29/25 Unknown History Chac-Swiv-Rspdq (PABA) See Rx Instructions .Route .COMPLEX 10/10/23 02/22/25 Unknown History One A Day BYMOUTH DAILY 10/10/23 12/21/24 Unknown History ergocalciferol (vitamin D2) 50,000 1 unit PO WEEKLY 11/23/24 01/29/25 Unknown History unit tablet loratadine 10 mg tablet (Claritin) 10 mg PO DAILY 11/23/24 01/29/25 Unknown History Allergies Allergy/AdvReac Type Severity Reaction Status Date / Time iodine AdvReac Hives Verified 03/21/25 17:40 latex AdvReac Hives Verified 03/21/25 17:40 [facility] Past Medical History Medical History Post-menopausal osteoporosis Psoriasis Hyperthyroidism Hx of fracture of wrist Depression Thyroid disorder Osteoporosis IBS (irritable bowel syndrome) Hypertension Asthma Arthritis Anxiety Allergies History of osteoporosis Surgical History Surgical History History of ankle surgery Hx of arthroscopic knee surgery Family History Family History Mother Depression Heart disease Hypertension Father Hypertension Sibling Diabetes mellitus Heart disease Depression Social History Social History Smoking status: Never smoker Alcohol intake: current Drinks per week: 4 Substance use: never Substance use type: does not use Lack of Transportation: No Lack of Food: Never True Current Housing: I Have Housing Concerned About Future Housing: No Difficulty Paying Gas/Electric Bills: No Difficulty Paying for Meds: No Currently Unemployed: No Education: High School Diploma/GED Difficulty w/ Childcare or Family Care: No Living arrangements: with family Occupation/Education: unemployed Spiritual care concerns: No Agree to blood products: Yes Exam Narrative: GENERAL: [Well-appearing, well-nourished, and in no acute distress.] HEAD: [Normocephalic, atraumatic.] EYES: [PERRLA and EOMI.] ENT: Nares clear, no rhinorrhea or epistaxis. Mucous membranes moist. NECK: Supple. CHEST: [Clear to auscultation. No respiratory distress.] HEART: [Regular rate and rhythm]. No murmur heard. [Normal peripheral pulses.] ABDOMEN: [Soft, nondistended], [nontender], [No rigidity or guarding] EXTREMITIES: Bruising to the ulnar aspect laterally on the right upper extremity near the wrist joint as well as the 5th metacarpal area and lateral right olecranon process but no step-offs deformities or any restricted range of motion. Good catshovel driver strength, pronation supination are full. Tenderness reproducible palpation. SKIN: Warm, dry, no rash. NEURO: [No focal deficits]. Alert and oriented [x3.] PSYCH: [Normal mood and affect.] Course Vital Signs Vital signs: Vital Signs Temperature 36.6 C 03/21/25 18:11 Pulse Rate 100 03/21/25 18:11 Respiratory Rate 15 03/21/25 18:11 Blood Pressure 125/82 03/21/25 18:11 Pulse Oximetry 98 03/21/25 18:11 Temperature 36.6 C 03/21/25 18:11 Pulse Rate 77 03/21/25 21:20 Respiratory Rate 16 03/21/25 21:20 Blood Pressure 125/76 03/21/25 21:20 Pulse Oximetry 98 03/21/25 21:20 Oxygen Delivery Room Air 03/21/25 20:11 MDM MDM Narrative Medical decision making narrative: 59-year-old female presenting after she fell 2 days ago. The patient states she fell in her kitchen counter and landed on her right wrist and elbow. She has been having pain for last 2 days but no restricted range of motion. She does have pain and tenderness with some bruising over the dorsum of her right hand on the ulnar aspect as well as the elbow. She also incidentally tested positive for COVID has been dealing with this without any complications. She states her pain is responsive to ibuprofen/Motrin at home. Currently 06/29. No other injuries or any other symptoms at this time. Bruising to the ulnar aspect laterally on the right upper extremity near the wrist joint as well as the 5th metacarpal area and lateral right olecranon process but no step-offs deformities or any restricted range of motion. Good catshovel driver strength, pronation supination are full. Tenderness reproducible palpation. X-rays obtained and unremarkable. Patient is safe for discharge home at this time with PCP follow-up instructions. Differential Diagnosis Differential Diagnosis: Musculoskeletal contusion, fracture, dislocation Imaging Data Radiologist's impression: ITS Impressions Elbow X-Ray 03/21/25 20:30 IMPRESSION: 1. Normal right elbow radiographs Hand X-Ray 03/21/25 20:31 IMPRESSION: 1. 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 No acute osseous abnormality. Wrist X-Ray 03/21/25 20:31 IMPRESSION: 1. 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 No acute osseous abnormality. Discharge Plan Discharge Clinical Impression: Contusion of right wrist, Contusion of hand, right, Contusion of elbow, right Patient Disposition: Home Condition: Stable Instructions: Antibiotic Form, Contusion in Adults (ED) Additional Instructions: X-ray showed no broken bones or any dislocations. Take Tylenol and ibuprofen every 6-8 hours for pain control. Apply ice up to 20 minutes at a time. Return with any emergencies otherwise follow-up with regular doctor. Patient Language: Ghanaian Prescriptions: No Action prednisone 20 mg tablet 40 mg PO DAILY Qty: 10 3RF Airsupra 90-80 mcg/actuation HFA aerosol inhaler 2 inh inhalation QID PRN (Reason: shortness of breath) Qty: 10.7 0RF Rx Instructions: as a single dose; may repeat up to 6 doses per day (12 inhalations) albuterol 90 mcg-budesonide 80 mcg/actuation HFA aerosol inhaler 90-80 mcg/actuation HFA aerosol inhaler 0RF loratadine [Claritin] 10 mg tablet 10 mg PO DAILY albuterol sulfate 2.5 mg /3 mL (0.083 %) solution for nebulization 2.5 mg inhalation Q4-6H PRN (Reason: shortness of breath or wheezing) Qty: 180 2RF budesonide-formoterol [Symbicort] 160-4.5 mcg/actuation HFA aerosol inhaler 2 puff inhalation Q12H Qty: 10.2 3RF ergocalciferol (vitamin D2) 50,000 unit tablet 1 unit PO WEEKLY fluticasone propionate 50 mcg/actuation spray,suspension 1 spray intranasal DAILY Qty: 48 3RF Rx Instructions: administer into each nostril ibandronate 150 mg tablet 150 mg PO MONTHLY Qty: 3 4RF theophylline 400 mg tablet extended release 24 hr See Rx Instructions PO DAILY Qty: 45 1RF Rx Instructions: orally daily; 200mg in the am and 400mg in the pm B Complex-Vitamin B12 See Rx Instructions PO DAILY Rx Instructions: 1 TAB DAY orally daily; Calcium 600 600 mg PO DAILY Gwfd-Ukyi-Lumje (PABA) See Rx Instructions .ROUTE .COMPLEX Rx Instructions: 1 gummie BID; One A Day BYMOUTH DAILY Linzess 145 mcg capsule 290 mcg PO DAILY Qty: 90 1RF amlodipine 10 mg tablet See Rx Instructions .ROUTE .COMPLEX Qty: 90 1RF Dose Instruction: TAKE 1 TABLET BY MOUTH DAILY Rx Instructions: TAKE 1 TABLET BY MOUTH DAILY budesonide 0.5 mg/2 mL suspension for nebulization See Rx Instructions .ROUTE .COMPLEX Qty: 60 1RF Dose Instruction: USE 1 VIAL VIA NEBULIZER DAILY Rx Instructions: USE 1 VIAL VIA NEBULIZER DAILY metoprolol succinate 25 mg tablet extended release 24 hr See Rx Instructions .ROUTE .COMPLEX Qty: 90 1RF Dose Instruction: TAKE 1 TABLET BY MOUTH DAILY Rx Instructions: TAKE 1 TABLET BY MOUTH DAILY ibuprofen 800 mg tablet 800 mg PO Q8H PRN (Reason: pain) Qty: 60 0RF hydrochlorothiazide 12.5 mg capsule 12.5 mg PO DAILY Qty: 90 1RF levothyroxine [Synthroid] 50 mcg tablet 50 mcg PO DAILY Qty: 90 1RF montelukast [Singulair] 10 mg tablet 10 mg PO DAILY Qty: 90 1RF duloxetine 60 mg capsule, delayed rel sprinkle 60 mg PO BID Qty: 180 1RF bupropion HCl 150 mg tablet extended release 24 hr 150 mg PO DAILY Qty: 90 1RF Follow-up/Referrals: Myranda Bedoya APRN [Primary Care Provider, Internal Medicine] Time of Disposition: 20:51
--- OUTSIDE RECORDS SUMMARY | 2025-03-21 20:59 | XMS_ITS | Clinical Summary ---
Author Organization [facility] Address [address] [place] [address] Care Team Providers Care Roller Engraver Name Role Phone MuluRoosevelt lofton Primary Care Provider Allergies Active Allergy Reactions Criticality Noted Date Comments Iodine Hives 03/24/2021 Latex Hives 03/24/2021 Xcopcwgakid-Kasigzdcn-Nxrtbp Palpitations Low 01/30 Medications albuterol (PROVENTIL) (2.5 MG/3ML) 0.083% nebulizer solution 2.5 mg. Active albuterol sulfate HFA 108 (90 Base) MCG/ACT inhaler albuterol sulfate 90 mcg/actuation inhalation HFA aerosol inhaler inhale 1 puff (90 mcg) by inhalation route every 6 hours as needed Active Active bisoprolol (ZEBeta) 5 MG tablet bisoprolol fumarate 5 mg oral tablet take one-half tablet (2.5 mg) by oral route once daily Active Active fluticasone (FLONASE) 50 MCG/ACT nasal spray fluticasone propionate 50 mcg/actuation nasal spray,suspensio n spray 1 spray (50 mcg) in each nostril by intranasal route once daily Active Active loratadine (CLARITIN) 10 MG tablet loratadine 10 mg oral tablet take 1 tablet (10 mg) by oral route once daily Active Active montelukast (SINGULAIR) 10 MG tablet montelukast 10 mg oral tablet take 1 tablet (10 mg) by oral route once daily in the evening Active Active hydroCHLOROthiaz denise 12.5 MG tablet Take 1 tablet by mouth Daily. Active buPROPion XL (WELLBUTRIN XL) 150 MG 24 hr tabletIndication s:Major depressive disorder, recurrent, moderate Take 1 tablet by mouth Daily. 90 tablet 1 4 Active ibandronate (Boniva) 150 MG tabletIndication s:Osteoporosis without current pathological fracture, unspecified osteoporosis type Take 1 tablet by mouth Every 30 (Thirty) Days. 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 30 tablet 2 4 Active ibuprofen (ADVIL,MOTRIN) 600 MG tabletIndication s:Trochanteric bursitis of left hip Take 1 tablet by mouth Every 8 (Eight) Hours As Needed for Mild Pain (hip pain). 30 tablet 4 Active budesonide-formo terol (SYMBICORT) 160-4.5 MCG/ACT inhalerIndicatio ns:Severe persistent asthma without complication Inhale 2 puffs 2 (Two) Times a Day. 10.2 g 2 4 Active clobetasol (TEMOVATE) 0.05 % ointmentIndicati ons:Psoriasis Apply 1 Application topically to the appropriate area as directed 2 (Two) Times a Day. 60 g 2 4 Active linaclotide (LINZESS) 290 MCG capsule capsuleIndicatio ns:Irritable bowel syndrome with constipation Take 1 capsule by mouth Every Morning Before Breakfast. 30 capsule 5 4 Active theophylline (UNIPHYL) 400 MG 24 hr tablet Take 1 tablet by mouth Daily for 180 days. 90 tablet 1 4 Active budesonide (PULMICORT) 0.5 MG/2ML nebulizer solution INHALE THE CONTENTS OF 1 VIAL (2 ML) VIA NEBULIZER TWICE DAILY 120 mL 2 5 Active DULoxetine (CYMBALTA) 60 MG capsuleIndicatio ns:Major depressive disorder, recurrent, moderate Take 1 capsule by mouth Daily. 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 12/20 Irritable bowel syndrome with constipation 12/30 Osteoporosis without current pathological fractu re 12/31/2023 Immunizations Immunization Administration Dates Next Due COVID-19 ([place]) 06/24/2020 Fluzone >6mos 12/31/2023 Pneumococcal Conjugate 20-Valent (PCV20) 024 Tdap 12/07/2023 Social History Tobacco Use Types Packs/Day Years Used Date Smoking Tobacco: Never Smokeless Tobacco: Never Alcohol Use Standard Drinks/Week Comments Yes 0 (1 standard drink = 0.6 oz pur e alcohol) social Abuse Screen Answer Date Recorded Feels Unsafe at Home or Work/School no 12/07/2023 Feels Threatened by Someone no 11/20 Does Anyone Try to Keep You From Having Contact with Others or Doing Things Outside Your Home? no 12/07/2023 Physical Signs of Abuse Present no 12/07/2023 PHQ-2 Answer Date Recorded Retired PHQ-9: Brief Depression Severity Measure Score 12 12/31/2023 Comments No Sex and Gender Information Value Date Recorded Sex Assigned at Not on file Legal Sex Female 6:07 PM EDT Gender Identity Not on file Sexual Orientation Not on file Last Filed Vital Signs Vital Sign Reading Time Taken Comments Blood Pressure 120/86 01/31/2024 3:30 PM EST Pulse 94 01/31/2024 3:30 PM EST Temperature 37.2 C (99 F) 01/31/2024 3:30 PM EST Respiratory Rate 18 12/07/2023 3:07 PM EDT Oxygen Saturation 98% 01/31/2024 3:30 PM EST Inhaled Oxygen Concentration - - Weight 73.7 kg (162 lb 6.4 oz) 01/31/2024 3:30 P M EST Height 170.2 cm (5' 7) 01/31/2024 3:30 PM EST Body Mass Index 25.44 01/31/2024 3:30 PM EST Plan of Treatment Health Maintenance Due Date Last Done Comments Annual Gynecologic Pelvic an d Breast Exam 1965 COLOGUARD 06/22/2011 COLON CANCER SCREENING 5 YEA R SIGMOIDOSCOPY 06/22/2011 CT COLONOGRAPHY 06/22/2011 FECAL OCCULT BLOOD TEST 06/22/2011 FIT Testing (1 year) 06/22/2011 ZOSTER VACCINE (1 of 2) 2016 INFLUENZA VACCINE 10/20/2024 12/31/2023, 01/21/2022 LIPID PANEL 01/04/2025 01/05/2024 ANNUAL PHYSICAL 01/30/2025 01/31/2024 MAMMOGRAM 01/27/2026 01/28/2024, 10/2022, 10/09/2020, Additional history exists PAP SMEAR 01/30/2027 01/31/2024 COLONOSCOPY 05/27/2030 05/27/2020 COLORECTAL CANCER SCREENING 05/27/2030 TDAP/TD VACCINES (2 - Td or Tdap) 12/06/2033 Pneumococcal Vaccine 50+ Completed 12/31/2023, 04/2022 HEPATITIS C SCREENING Completed 01/05/2024 Procedures Procedure Name Priority Date/Time Associated Diagnosis Comments IGP, APTIMA HPV Routine 01/31/2024 4:22 PM EST Cervical cancer screening MAMMO SCREENING DIGITAL TOMOSYNTHESIS BILATERAL W CAD Routine 01/28/2024 2:47 PM EST Screening mammogram for breast cancer LIPID PANEL Routine 01/05/2024 11:39 AM EDT Screening for hyperlipidemia HEPATITIS C ANTIBODY Routine 01/05/2024 11:39 AM EDT Need for hepatitis C screening test from Last 3 Months or Most Recently Relevant to Health Maintenance Results * IgP, Aptima HPV (01/31/2024 4:22 PM EST) Diagnosis Comment 02/08/2024 8:12 AM EST [facility] Comment: NEGATIVE FOR INTRAEPITHELIAL LESION OR MALIGNANCY. CELLULAR CHANGES ASSOCIATED WITH ATROPHY ARE PRESENT. Specimen adequacy: Comment 2023 8:12 AM EST [facility] Comment: Satisfactory for evaluation. Endocervical component may not be distinguished in cases of atrophy. Clinician Provided ICD-10: Comment 02/08/2024 8:12 AM EST [facility] Comment:Z12.4 Performed by: Comment 02/08/2024 8:12 AM EST [facility] Comment:Benito Pruett , Connie Cleaner (ASCP) . . 02/08/2024 8:12 AM EST [facility] Note: Comment 02/08/2024 8:12 AM EST [facility] Comment: The Pap smear is a screening test designed to aid in the detection of premalignant and malignant conditions of the uterine cervix. It is not a diagnostic procedure and should not be used as the sole means of detecting cervical cancer. Both false-positive and false-negative reports do occur. Method: Comment 02/08/2024 8:12 AM EST [facility] Comment: This liquid based ThinPrep(R) pap test was screened with the use of an image guided system. HPV Aptima Negative Negative 02/08/2024 8:12 AM EST [facility] Comment: This nucleic acid amplification test detects fourteen high-risk HPV types (16,18,31,33,35,39,45,51,52,56,58,59,66,68) without differentiation. ThinPrep Vial Cervix uteri structure / Unknown Collection / Unknown 01/31/2024 4:22 PM EST 01/31/2024 4:22 PM EST [facility] 02/08/2024 8:12 AM EST Performed at: [address] [id number] Batch Plant Supervisor: Mel Staley MD, Phone: [phone] Performed at: [address] [id number] Batch Plant Supervisor: Mel Staley MD, Phone: [phone] Specimen Comment: Source.............Endocervix Specimen Comment: No. of containers..01 ThinPrep Vial us Roosevelt Hardwick DO PATHOLOGY/CYTOLOGY ORDERABLES Final Result [facility] [address] [place] [address], [place] [phone] * Mammo Screening Digital Tomosynthesis Bilateral With CAD (01/28/2024 2:47 PM EST) Anatomical Region Laterality Modality Breast N/A Mammography 01/28/2024 3:21 PM EST Impressions 01/28/2024 3:27 PM EST No mammographic evidence of malignancy. Recommend annual screening mammography. BI-RADS ASSESSMENT: BI-RADS 2. Benign findings. Note: It has been reported that there is approximately a 15% false negative rate in mammography. Therefore, management of a palpable abnormality should not be deferred because of a negative mammogram. Electronically Signed By-FLORES GAN MD On:01/28/2024 3:27 PM Narrative 01/28/2024 3:27 PM EST MAMMO SCREENING DIGITAL TOMOSYNTHESIS BILATERAL W CAD- Date of Exam: 01/28/2024 2:13 PM Indication: Screening. Comparison: 01/27/2023, 10/09/2020, 05/22/2019, 02/14/2018 Technique: Routine screening mammogram images were obtained per protocol. Tomosynthesis was utilized. These mammographic images were interpreted with the assistance of a computer aided detection system. Breast Density: There are scattered areas of fibroglandular density. Findings: No suspicious masses, suspicious microcalcifications, or architectural distortions are identified. us Roosevelt Hardwick DO IMG MAMMOGRAPHY ORDERABLES Fin al Result * Hepatitis C Antibody (01/05/2024 11:39 AM EDT) Hepatitis C Ab Non-Reacti ve Non-Reacti ve 01/05/2024 11:04 PM EDT [facility] Blood Structure of right upper limb / Unknown Venipuncture / Unknown 01/05/2024 11:39 AM EDT 01/05/2024 11:40 AM EDT us Roosevelt Hardwick DO LAB BLOOD ORDERABLES Final Res ult [facility]
[address] [place] [address], [place] [phone] * (ABNORMAL) Lipid Panel (01/05/2024 11:39 AM EDT) Total Cholesterol 178 0 - 200 mg/dL 01/05/2024 10:43 PM EDT [facility] Triglycerides 76 0 - 150 mg/dL 01/05/2024 10:43 PM EDT [facility] HDL Cholesterol 52 40 - 60 mg/dL 01/05/2024 10:43 PM EDT [facility] LDL Cholesterol 112(H) 0 - 100 mg/dL 01/05/2024 10:43 PM EDT [facility] VLDL Cholesterol 14 5 - 40 mg/dL 01/05/2024 10:43 PM T [facility] LDL/HDL Ratio 2.13 01/05/2024 10:43 PM T [facility] Blood Structure of right upper limb / Unknown Venipuncture / Unknown 01/05/2024 11:39 AM EDT 01/05/2024 11:40 AM EDT Narrative [facility] - 01/05/2024 10:43 PM EDT Cholesterol Reference Ranges (U.S. Department of Health and Human Services ATP III Classifications) Desirable <200 mg/dL Borderline High 200-239 mg/dL High Risk >240 mg/dL Triglyceride Reference Ranges (U.S. Department of Health and Human Services ATP III Classifications) Normal <150 mg/dL Borderline High 150-199 mg/dL High 200-499 mg/dL Very High >500 mg/dL HDL Reference Ranges (U.S. Department of Health and Human Services ATP III Classifications) Low <40 mg/dl (major risk factor for CHD) High >60 mg/dl ('negative' risk factor for CHD) LDL Reference Ranges (U.S. Department of Health and Human Services ATP III Classifications) Optimal <100 mg/dL Near Optimal 100-129 mg/dL Borderline High 130-159 mg/dL High 160-189 mg/dL Very High >189 mg/dL us Roosevelt Hardwick DO LAB BLOOD ORDERABLES Final Res ult [facility]
[address] [place] [address], from Last 3 Months or Most Recently Relevant to Health Maintenance Insurance [employer] Teams Roller Engraver Relationship Specialty Start Date End Date Roosevelt Hardwick DO [address] [place] [address] [place] [id number] PCP - General Family Medicine 12/31/23
--- OUTSIDE RECORDS SUMMARY | 2025-03-21 20:59 | XMS_ITS | Encounter Summary ---
Author Organization [facility] Address [address] [place] [address] Care Team Providers Care Sales Account Executive Name Role Phone Roosevelt Hardwick DO Primary Care Provider [phone] Encounter Details Date Type Department Care Team (Late st Contact Info) Description 11/03/2019 Documentation Converted [facility] CONVERSION DEPARTMENT GENERAL [address] [place] [id number] Interface, See Report Social History Tobacco Use Types Packs/Day Years Used Date Smoking Tobacco: Never Assessed Comments Unknown Sex and Gender Information Value Date Recorded Sex Assigned at Not on file Legal Sex Female 6:07 PM EDT Gender Identity Not on file Sexual Orientation Not on file documented as of this encounter H&P Notes * Interface, See Report - 11/03/2019 12:00 AM EDT History and Physical Patient Name: Aure Phillip Sex: Female Birthdate: 1965 Create Date: November 03, 2019 Chief Complaint ?? Surgical History and Physical ?? Screening Colonoscopy ?? Direct access/screening phone call was made to the patient to update health history and scheduleendoscopy History Of Present Illness NON-INPATIENT HISTORY AND PHYSICAL Allergies: I.V. Dye, Latex, and Latex Exam Gloves Chief Complaint/History of Present Illness: Screening Colonoscopy Colon Recall: No Failed Outpatient Treatment/Contraindications: N/A Current Medications: albuterol sulfate 2.5 mg /3 mL (0.083 %) inhalation solution for nebulization,albuterol sulfate 90 mcg/actuation inhalation HFA aerosol inhaler, amlodipine 5 mg oral tablet, duloxetine 60 mg oral capsule,delayed release(DR/EC), fluticasone propionate 50 mcg/actuation nasal spray,suspension, ibuprofen 800 mg oral tablet, loratadine 10 mg oral tablet, montelukast 10 mg oral tablet, Plenvu 140-9-5.2 gram oral powder in packet, sequential, Pulmicort 0.5 mg/2 mL inhalation suspension for nebulization, and Symbicort 160-4.5 mcg/actuation inhalation HFA aerosol inhaler Significant Past Medical History: Asthma, COPD, Hypertension, Limb Swelling, and Seasonal allergies Significant Family Medical History: no family history of colon cancer Significant Past Surgical History: Knee arthroscopy, diagnostic Previous Colonoscopy: No Previous EGD: No PHYSICAL EXAM: Heart: Regular Rate and Rhythm Lungs: Breathing Unlabored Past Medical History Disease Name Date Onset Notes Asthma -- -- COPD 2019 -- Hypertension -- -- Limb Swelling -- -- Seasonal allergies -- -- Past Surgical History Procedure Name Date Notes Knee arthroscopy, diagnostic -- left knee Medication List Name Date Started Instructions albuterol sulfate 2.5 mg /3 mL (0.083 %) inhalation solution for nebulization inhale 3 milliliters (2.5 mg) by nebulization route 3 times per day as needed albuterol sulfate 90 mcg/actuation inhalation HFA aerosol inhaler inhale 1 puff (90 mcg) by inhalation route every 6 hours as needed amlodipine 5 mg oral tablet take 1 tablet (5 mg) by oral route once daily duloxetine 60 mg oral capsule,delayed release(DR/EC) take 2 capsules (120 mg) by oral route once daily fluticasone propionate 50 mcg/actuation nasal spray,suspension spray 1 spray (50 mcg) in each nostril by intranasal route once daily ibuprofen 800 mg oral tablet 04/26/2018 take 1 tablet by oral route every 8 hours loratadine 10 mg oral tablet take 1 tablet (10 mg) by oral route once daily montelukast 10 mg oral tablet take 1 tablet (10 mg) by oral route once daily in the evening Plenvu 140-9-5.2 gram oral powder in packet, sequential 11/03/2019 please follow instructions per provider Pulmicort 0.5 mg/2 mL inhalation suspension for nebulization inhale 2 milliliters (0.5 mg) by nebulization route once daily Symbicort 160-4.5 mcg/actuation inhalation HFA aerosol inhaler inhale 2 puffs by inhalation route 2times per day in the morning and evening Allergy List Allergen Name Date Reaction Notes I.V. 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 -- --/-- -- -- lives with children -- --/-- -- -- lives with spouse -- --/-- -- -- . -- --/-- -- -- Recreational Drug Use Never --/-- -- no Tobacco Never --/-- -- never smoker Assessment ?? Preoperative examination?V72.84/Z01.818 ?? Screening for colon cancer?V76.51/Z12.11 Problems Reconciled Plan ?? Orders o Consent for Colonoscopy Screening -Possible risk/complications, benefits, and alternatives to surgical or invasive procedure have been explained to patient and/or legal gaurdian. -Patient has been evaluated and can tolerate anethesia and/or sedation. Risk, benefits, and alternatives to anesthesiaand sedation have been explained to patient or legal gaurdian. (G0105) - V72.84/Z01.818, V76.51/Z12.11 - 12/13/2019 ?? Medications o Medications have been Reconciled o Transition of Care or Provider Policy ?? Instructions o Surgical Orders o o Outpatient o o RISK AND BENEFITS: o Possible risks/complications, benefits and alternatives to surgical or invasive procedure have been explained to the patient and/or legal guardian. o Patient has been evaluated and can tolerate anesthesia and/or sedation. Risks, benefits, and alternatives to anesthesia and sedation have been explained to the patient and/or legal guardian. o o PREP: Per protocol o IV: Per Anesthesia o The above History and Physical Examination has been completed within 30 days of admission. o This note has been transcribed by Geovanny Morgan. I have read and agree with the findings in this note. Electronically Signed by: Viki Morgan MA -Author on November 03, 2019 04:22:06 PM documented in this encounter Plan of Treatment Not on file documented as of this encounter Visit Diagnoses Not on filedocumented in this encounter Additional Health Concerns Infection Onset Date Last Indicated Resolved Time COVID (rule out) 03/24/2021 03/24/2021 03/31/2021 9:08 PM EST documented as of this encounter Care Teams Sales Account Executive Relationship Specialty Start Date End Date Roosevelt Hardwick DO [address] [place], [place] [id number] PCP - General Family Medicine 12/31/23 documented as of this encounter
--- OUTSIDE RECORDS SUMMARY | 2025-03-21 20:59 | XMS_ITS | Encounter Summary ---
Author Organization [facility] Address [address] [place] [id number] Care Team Providers Care Visual Aid Expert Name Role Phone Roosevelt Hardwick DO Primary Care Provider [phone] Reason for Visit * Reason Comments Med Refill Encounter Details Date Type Department Care Team (Late st Contact Info) Description 06/07/2024 Refill [facility] [address] [facility] [address] [place] [address] Roosevelt Hardwick DO [address] [facility] [address] [place] [address] Major depressive disorder, recurrent, moderate Social History Tobacco Use Types Packs/Day Years [...] on file documented as of this encounter Miscellaneous Notes * Telephone Encounter - Lois Terrell MA - 06/08/2024 8:13 AM EDT Rx sent to pharmacy. documented in this encounter Plan of Treatment Not on file documented as of this encounter Visit Diagnoses Diagnosis Major depressive disorder, recurrent, moderate Major depressive disorder, recurrent episode, moderate documented in this encounter Additional Health Concerns Assessment Noted Time PHQ-2 Depression Total Score: 4 12/31/19 2:30 PM EDT documented as of this encounter Care Teams Visual Aid Expert Relationship Specialty Start Date End Date Roosevelt Hardwick DO [address] [place] [address] PCP - General Family Medicine 12/31/23 documented as of this encounter
[2025-03-21 21:20] VITALS: BP 125/76; PULSE 77; RESP 16; O2SAT 98
== END 2025-03-21 21:22 | disposition home or self-care (01) ==
PROVIDERS: Emergency Provider Student in an Organized Health Care Education/Training Program; PCP Nurse Practitioner Family
DX: S60.211A Contusion of right wrist, initial encounter (principal); S60.221A Contusion of right hand, initial encounter; S50.01XA Contusion of right elbow, initial encounter; W18.30XA Fall on same level, unspecified, initial encounter; M81.0 Age-related osteoporosis without current pathological fracture; I10 Essential (primary) hypertension
CPT/HCPCS: 73080; 73110; 73130; 99284